=== PATIENT | female | born 1990 | race Hispanic/Latino ===

== ENCOUNTER 2017-07-03 13:13 | Emergency (ER) | payer SELFPAY ==
--- NOTE | 2017-07-03 14:16 | ER ---
Nurse's Notes [facility] Name: Yeison Long Age: 27 yrs Sex: Female : 1990 Arrival Date: 07/03/2017 Time: 13:14 Bed 19 Private MD: Diagnosis: Acute sinusitis Presentation: 07/03 13:20 Presenting complaint: Patient states: Sinus congestion, sinus pressure, and cough x 4 hb days. Transition of care: patient was not received from another setting of care. Onset of symptoms is unknown. Care prior to arrival: Medication(s) given: Claritin and Advil at 1000. 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 - Social history:: Smoking status: Patient uses tobacco products, denies chronic smoking, but will smoke occasionally. Screenin:43 Abuse screen: Denies threats or abuse. Nutritional screening: No deficits noted. tw2 Tuberculosis screening: No symptoms or risk factors identified. Fall Risk None identified. Assessment: 13:57 General: Appears in no apparent distress. General: Appears well groomed, Behavior is tw2 calm, cooperative, appropriate for age. Pain: Complains of pain in "sinuses". Neuro: Level of Consciousness is awake, alert, obeys commands, Oriented to person, place, time, situation. Cardiovascular: Denies chest pain, shortness of breath, Capillary refill < 3 seconds Patient's skin is warm and dry. Respiratory: Airway is patent Respiratory effort is even, unlabored, Respiratory pattern is regular, symmetrical. Respiratory: Reports. GI: No signs and/or symptoms were reported involving the gastrointestinal system. : No signs and/or symptoms were reported regarding the genitourinary system. EENT: Reports nasal congestion nasal discharge. Derm: No signs and/or symptoms reported regarding the dermatologic system. Musculoskeletal: Range of motion: intact in all extremities. 14:32 Reassessment: Patient appears in no apparent distress at this time. No changes from tw2 previously documented assessment. Patient and/or family updated on plan of care and expected duration. Pain level reassessed. Patient is alert, oriented x 3, equal unlabored respirations, skin warm/dry/pink. Vital Signs: 13:22 BP 105 / 72; Pulse 108; Resp 16; Temp 98.6; Pulse Ox 100% on R/A; Weight 65.77 kg; hb Height 5 ft. 2 in. (157.48 cm); Pain 6/10; 13:22 Body Mass Index 26.52 (65.77 kg, 157.48 cm) hb ED Course: 13:14 Patient arrived in ED. as 13:15 Caroline Rendon FNP-C is [facility]. kb 13:15 Matthew Godfrey MD is Attending Physician. kb 13:21 Triage completed. hb 13:22 Arm band placed on left wrist. hb 13:43 Johanny Hutchison, RN is Primary Nurse. tw2 13:43 Bed in low position. Call light in reach. Pulse ox on. NIBP on. tw2 13:51 Strep Sent. tw2 13:59 No provider procedures requiring assistance completed. tw2 14:32 Patient did not have IV access during this emergency room visit. tw2 Administered Medications: No medications were administered Outcome: 14:15 Discharge ordered by . kb 14:30 Patient left the ED. tw2 14:32 Discharged to home ambulatory, with significant other. tw2 14:32 Condition: stable 14:32 Discharge instructions given to patient, significant other, Instructed on discharge instructions, follow up and referral plans. Demonstrated understanding of instructions, follow-up care. Signatures: Caroline Rendon FNP-C FNP-Ckb Martinez, Amelia as Mary De Los Santos RN RN Johanny Hutchison RN RN tw2
--- NOTE | 2017-07-03 14:16 | EDPHYS ---
Physician Documentation [facility] Name: Yeison Long Age: 27 yrs Sex: Female : 1990 Arrival Date: 07/03/2017 Time: 13:14 Bed 19 Private MD: ED Physician Matthew Godfrey HPI: 07/03 14:14 This 27 yrs old Female presents to ER via Ambulatory with complaints of Sinus kb Congestion. 14:14 The patient or guardian reports cough, that is intermittent, described as mild, with no kb sputum. Onset: The symptoms/episode began/occurred 4 day(s) ago. Severity of symptoms: At their worst the symptoms were mild, moderate, in the emergency department the symptoms are unchanged. Modifying factors: The symptoms are alleviated by nothing, the symptoms are aggravated by nothing. Associated signs and symptoms: Pertinent positives: rhinorrhea, Pertinent negatives: chest pain, diarrhea, ear ache, fever, nausea, sore throat, vomiting. The patient has not experienced similar symptoms in the past. The patient has not recently seen a physician. 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 - Social history:: Smoking status: Patient uses tobacco products, denies chronic smoking, but will smoke occasionally. ROS: 14:09 Constitutional: Negative for fever, chills, and weight loss, Cardiovascular: Negative kb for chest pain, palpitations, and edema, Abdomen/GI: Negative for abdominal pain, nausea, vomiting, diarrhea, and constipation, Back: Negative for injury and pain, MS/Extremity: Negative for injury and deformity, Skin: Negative for injury, rash, and discoloration, Neuro: Negative for headache, weakness, numbness, tingling, and seizure. 14:09 ENT: Positive for rhinorrhea, sinus congestion, "ear plugged up". 14:09 Respiratory: Positive for cough, Negative for dyspnea on exertion, hemoptysis, orthopnea, pleurisy, shortness of breath, sputum production, wheezing. Exam: 14:09 Constitutional: This is a well developed, well nourished patient who is awake, alert, kb and in no acute distress. Head/Face: Normocephalic, atraumatic. Neck: Trachea midline, no thyromegaly or masses palpated, and no cervical lymphadenopathy. Supple, full range of motion without nuchal rigidity, or vertebral point tenderness. No Meningismus. Chest/axilla: Normal chest wall appearance and motion. Nontender with no deformity. No lesions are appreciated. Cardiovascular: Regular rate and rhythm with a normal S1 and S2. No gallops, murmurs, or rubs. Normal PMI, no JVD. No pulse deficits. Respiratory: Lungs have equal breath sounds bilaterally, clear to auscultation and percussion. No rales, rhonchi or wheezes noted. No increased work of breathing, no retractions or nasal flaring. Abdomen/GI: Soft, non-tender, with normal bowel sounds. No distension or tympany. No guarding or rebound. No evidence of tenderness throughout. Back: No spinal tenderness. No costovertebral tenderness. Full range of motion. Skin: Warm, dry with normal turgor. Normal color with no rashes, no lesions, and no evidence of cellulitis. MS/ Extremity: Pulses equal, no cyanosis. Neurovascular intact. Full, normal range of motion. Neuro: Awake and alert, GCS 15, oriented to person, place, time, and situation. Cranial nerves II-XII grossly intact. Motor strength 5/5 in all extremities. Sensory grossly intact. Cerebellar exam normal. Normal gait. 14:09 ENT: External ear(s): are unremarkable, Ear canal(s): are normal, TM's: fluid levels, on the left, Examination of the other ear shows no obvious abnormality, Nose: is normal, Mouth: is normal, Posterior pharynx: Airway: normal, no evidence of obstruction, Tonsils: bilaterally enlarged, Uvula: normal, midline, swelling, that is mild, erythema, that is mild, exudate, is not appreciated. Vital Signs: 13:22 BP 105 / 72; Pulse 108; Resp 16; Temp 98.6; Pulse Ox 100% on R/A; Weight 65.77 kg; hb Height 5 ft. 2 in. (157.48 cm); Pain 6/10; 13:22 Body Mass Index 26.52 (65.77 kg, 157.48 cm) [facility]: 13:27 Patient medically screened. kb 14:09 Data reviewed: vital signs, nurses notes. Data interpreted: Pulse oximetry: on room air kb is 100 %. Interpretation: normal. Counseling: I had a detailed discussion with the patient and/or guardian regarding: the historical points, exam findings, and any diagnostic results supporting the discharge/admit diagnosis, the need for outpatient follow up, a family practitioner, to return to the emergency department if symptoms worsen or persist or if there are any questions or concerns that arise at home. 07/03 13:45 Order name: Strep kb 07/03 14:09 Order name: Group A Streptococcus Rapid Sc; Complete Time: 14:09 EDMS Administered Medications: No medications were administered Disposition: 07/03/17 14:15 Discharged to Home. Impression: Acute sinusitis. - Condition is Stable. - Discharge Instructions: Sinusitis, [id number]. - Medication Reconciliation Form, Thank You Letter, Antibiotic Education, Prescription Opioid Use, Work release form form. - Follow up: Emergency Department; When: As needed; Reason: Worsening of condition. Follow up: Private Physician; When: 2 - 3 days; Reason: Recheck today's complaints, Continuance of care, Re-evaluation by your physician. Addendum: 07/05/2017 08:11 Co-signature as Attending Physician, Matthew Godfrey MD I agree with the assessment and c silverio plan of care. Signatures: Dispatcher [employer] Caroline Penn, LACTATION CONSULTANT-C LACTATION CONSULTANT-Matthew Pedroza MD MD cha Baxter, Heather, RN RN Johanny Hutchison RN RN tw2
== END 2017-07-03 14:30 | disposition home or self-care (01) ==
LOC: ER 13:13
DX: J01.90 Acute sinusitis, unspecified (principal); Z72.0 Tobacco use
CPT/HCPCS: 87070; 87081; 99283

== ENCOUNTER 2018-12-30 12:46 | Emergency (ER) | payer SELFPAY ==
--- OUTSIDE RECORDS SUMMARY | 2018-12-30 12:48 | XMS REPORT | Continuity of Care Document ---
:1990 Author Organization [facility] [place] Information [employer] Rating Agency Care Team Providers Name Role Phone [facility] Data Impact Unavailable Unavailable Problems Problem Status Onset Classification Date Comments Source Date Reported Patient Resolved Problem 03/08/2017 [place] [id number] [facility] (finding) SROM Active [address] VAGINAL DEL Active [address] SCREEN FOR Active [address] Medications Medication Details Route Status Patient Ordering Order Source Instructions Provider Date influenza virus 0.5 mL, Route: Inactive [place] vaccine, IM, Drug Form: 2017 Medical inactivated SUSP, Daily, Center Start date: 03/05/17 13:28:00 BENEFIT SPECIALIST, Duration: 1 doses or times, Stop date: 03/05/17 13:28:00 CSTNotes: (Same as: Fluzone Quadrivalent, Fluarix Quadrivalent) For 3 years of age and older (0.5 mL IM) Shake well before use Docusate Sodium 100 mg=1 cap, Active [place] 100 MG Oral PO, Daily, PRN 2017 Medical Capsule Constipation, # Center 20 cap, 0 Refill(s) ibuprofen 600 mg 600 mg=1 tab, Active [place] oral tablet PO, Q6H, PRN 2017 Medical Pain, take with Center food, X 7 day, # 30 tab, 1 Refill(s) influenza virus 0.5 mL, Route: No Longer [place] vaccine, IM, Drug Form: Active 2017 Medical inactivated SUSP, Daily, Center Start date: 03/04/17 9:00:00 BENEFIT SPECIALIST, Duration: 1 doses or times, Stop date: 03/04/17 9:00:00 CSTNotes: (Same as: Fluzone Quadrivalent, Fluarix Quadrivalent) For 3 years of age and older (0.5 mL IM) Shake well before use Ibuprofen 600 mg, 1 tab, No Longer [place] Route: PO, Drug Active 2016 Medical form: TAB, Q6H, Center Dosing Weight 82.727, kg, Start date: 03/03/17 12:00:00 BENEFIT SPECIALIST, Duration: 30 day, Stop date: 04/02/17 6:00:00 CSTNotes: (Same as: Cyndi) "Do Not Crush" Take with food. 0.5 ML Bordetella 0.5 mL, Route: No Longer [place] pertussis IM, Drug Form: Active 2017 Medical filamentous SUSP, Dosing Center hemagglutinin Weight 82.727, vaccine, kg, ONCALL, inactivated 0.01 Start date: MG/ML / Bordetella 03/03/17 pertussis fimbriae 9:00:00 BENEFIT SPECIALIST, 2/3 vaccine, Duration: 1 inactivated 0.01 doses or MG/ML / Bordetella timesNotes: pertussis (Tdap ) For pertactin vaccine, Adolecent and inactivated 0.006 Adult use For MG/ML / Bordetella IM Use. Same pertussis toxoid as: Adacel vacci (Tdap) M-M-R II 0.5 mL, Route: No Longer [place] SUB-Q, Drug Active 2016 Medical Form: PDR/INJ, Center Dosing Weight 82.727, kg, ONCALL, Give only if patient rubella non-immune, Start date: 03/03/17 9:00:00 BENEFIT SPECIALIST, Duration: 1 doses or timesNotes: (Same as: M-M-R II) (measles-mumps- rubella virus vaccine 0.5 ml INJ VL) WASTE: F/P - Red; E -Red GIVE PRIOR TO DISCHARGE 1 tab, Route: No Longer [place] Multivitamins oral PO, Drug Form: Active 2017 Medical tablet TAB, Dosing Center Weight 82.727, kg, Daily, Start date: 03/03/17 9:00:00 BENEFIT SPECIALIST, Duration: 30 day, Stop date: 04/01/17 9:00:00 BENEFIT SPECIALIST Acetaminophen 325 1 tab, Route: No Longer [place] MG / Hydrocodone PO, Drug Form: Active 2017 Medical Bitartrate 10 MG TAB, Dosing Center Oral Tablet Weight 82.727, kg, Q4H, PRN Pain Score 7-10, Start date: 03/03/17 8:48:00 BENEFIT SPECIALIST, Duration: 30 day, Stop date: 04/02/17 8:47:00 CSTNotes: Do not exceed 4gm/day of acetaminophen. (Same as: [place] 325/10) Acetaminophen 325 1 tab, Route: No Longer [place] MG / Hydrocodone PO, Drug Form: Active 2017 Medical Bitartrate 5 MG TAB, Dosing Center Oral Tablet Weight 82.727, kg, Q4H, PRN Pain Score 4-6, Start date: 03/03/17 8:48:00 BENEFIT SPECIALIST, Duration: 30 day, Stop date: 04/02/17 8:47:00 CSTNotes: (Same as: [place] 325/5) Do not exceed 4gm/day of acetaminophen. zolpidem 5 mg, 1 tab, No Longer [place] Route: PO, Drug Active 2016 Medical form: TAB, Center Bedtime, Dosing Weight 82.727, kg, PRN Sleep, Start date: 03/03/17 8:48:00 BENEFIT SPECIALIST, Duration: 30 day, Stop date: 04/02/17 8:47:00 CSTNotes: (Same As: Ambien) Methylergonovine 0.2 mg, 1 mL, No Longer [place] Route: IM, Drug Active 2016 Medical form: INJ, PRN, Center Dosing Weight 82.727, kg, PRN Other -See Comment, Start date: 03/03/17 8:48:00 BENEFIT SPECIALIST, Duration: 30 day, Stop date: 04/02/17 8:47:00 CSTNotes: (Same as:Methergine) lanolin topical 1 appl, Route: No Longer [place] TOP, PRN, Drug Active 2016 Medical form: OINT, PRN Center Other -See Comment, Start date: 03/03/17 8:48:00 BENEFIT SPECIALIST, Duration: 30 day, Stop date: 04/02/17 8:47:00 CSTNotes: (Same as:Lanolin) Benzocaine 200 1 spray, Route: No Longer [place] MG/ML Topical TOP, PRN, Drug Active 2016 Medical [place] [Dermoplast] form: SPRY, PRN Center Irritation, Start date: 03/03/17 8:48:00 BENEFIT SPECIALIST, Duration: 30 day, Stop date: 04/02/17 8:47:00 CSTNotes: (Same As: Dermoplast) WASTE: Aerosol - Return to Pharmacy FOR EXTERNAL USE ONLY Docusate 100 mg, 1 cap, No Longer [place] Route: PO, Drug Active 2016 Medical form: CAP, BID, Center Dosing Weight 82.727, kg, PRN Constipation, Start date: 03/03/17 8:48:00 BENEFIT SPECIALIST, Duration: 30 day, Stop date: 04/02/17 8:47:00 CSTNotes: (Same as: Colace) (Do Not Crush) Bisacodyl 15 mg, 3 tab, No Longer [place] Route: PO, Drug Active 2016 Medical form: ECTAB, Center Daily, Dosing Weight 82.727, kg, PRN Other -See Comment, Start date: 03/03/17 8:48:00 BENEFIT SPECIALIST, Duration: 30 day, Stop date: 04/02/17 8:47:00 CSTNotes: (Same As: Dulcolax, Correctol) (Do Not Crush) "Do Not Crush" Lactated Ringers 1,000 mL, Rate: No Longer [place] IV 1,000 mL 100 ml/hr, Active 2016 Medical Infuse over: 10 Center hr, Route: IV, Dosing Weight 82.727 kg, Total Volume: 1,000, Start date: 03/03/17 8:48:00 BENEFIT SPECIALIST, Duration: 30 day, Stop date: 04/02/17 8:47:00 BENEFIT SPECIALIST, 1.93, m2 Oxytocin 30 unit, 500 No Longer [place] mL, Rate: 42 Active 2016 Medical ml/hr, Infuse Center over: 11.9 hr, Dosing Weight 82.727, kg, Route: IV, Total Volume: 500 mL, Start date: 03/03/17 8:48:00 BENEFIT SPECIALIST, Duration: 2 day, Stop date: 03/05/17 8:47:00 BENEFIT SPECIALIST, Replace Every: 11.9 hr Ondansetron 4 mg, 2 mL, No Longer [place] Route: IVP, Active 2016 Medical Drug form: INJ, Center Q8H, Dosing Weight 82.727, kg, PRN Nausea & Vomiting, Start date: 03/03/17 8:48:00 BENEFIT SPECIALIST, Duration: 30 day, Stop date: 04/02/17 8:47:00 CSTNotes: (Same as: Zofran) MEDICATION WASTE Product Size: 4 mg Product Wasted: ___ mg gentamicin + 320 mg, 8 mL, No Longer [facility] Sodium Chloride Route: IV, Active 2016 Medical 0.9% IV 100 mL Q24H, Dosing Center Weight 82.727, kg, Start date: 03/02/17 20:00:00 BENEFIT SPECIALIST, Duration: 30 day, Stop date: 03/31/17 20:00:00 CSTNotes: TIME CRITICAL MEDICATION (Same as Garamycin) Ofirmev 1,000 mg, 100 Inactive [facility] mL, Route: IV, 2016 Medical Drug form: INJ, Center ONCE, Dosing Weight 82.727, kg, Priority: NOW, Start date: 03/02/17 19:52:00 BENEFIT SPECIALIST, Stop date: 03/02/17 19:52:00 CSTNotes: Infuse over 15 minutes Do not exceed 4gm/day of acetaminophen MEDICATION WASTE Product Size: 1000 mg Product Wasted: ___ mg Gentamicin 320 mg, 8 mL, Inactive [facility] Route: IV, 2016 Medical Q24H, Dosing Center Weight 82.727, kg, Start date: 03/02/17 19:00:00 BENEFIT SPECIALIST, Duration: 30 day, Stop date: 03/31/17 19:00:00 CSTNotes: TIME CRITICAL MEDICATION (Same as Garamycin) Ampicillin 2 gm, Route: No Longer [facility] IVPB, Drug Active 2016 Medical form: PDR/INJ, Center ABXQ6H, Dosing Weight 82.727, kg, Start date: 03/02/17 19:00:00 BENEFIT SPECIALIST, Duration: 30 day, Stop date: 04/01/17 13:00:00 CSTNotes: (Same as: [place]) MEDICATION WASTE Product Size: 2000 mg Product Wasted: ___ mg Ofirmev 1,000 mg, 100 Inactive [facility] mL, Route: IV, 2016 Medical Drug form: INJ, Center ONCE, Dosing Weight 82.727, kg, Priority: NOW, Start date: 03/02/17 18:34:00 BENEFIT SPECIALIST, Stop date: 03/02/17 18:34:00 CSTNotes: Infuse over 15 minutes Do not exceed 4gm/day of acetaminophen MEDICATION WASTE Product Size: 1000 mg Product Wasted: ___ mg Citric Acid / 30 mL, Route: No Longer [place] sodium citrate PO, Drug Form: Active 2017 Medical SOLN, Dosing Center Weight 82.727, kg, ONCALL, Start date: 03/02/17 4:00:00 BENEFIT SPECIALIST, Duration: 30 day, Stop date: 04/01/17 3:59:00 CSTNotes: (Same As: Bicitra, Cytra-2) Sodium citrate-citric acid (500-334 mg/5 mL): 1 mL contains sodium 1 mEq/mL and bicarbonate 1 mEq/mL Carboprost 250 microgram, No Longer [place] 1 mL, Route: Active 2016 Medical IM, Drug form: Center INJ, ONCALL, Dosing Weight 82.727, kg, Start date: 03/02/17 4:00:00 BENEFIT SPECIALIST, Duration: 30 day, Stop date: 04/01/17 3:59:00 CSTNotes: (Same As: Hemabate) Methylergonovine 0.2 mg, 1 mL, No Longer [place] Route: IM, Drug Active 2016 Medical form: INJ, Center ONCALL, Dosing Weight 82.727, kg, Start date: 03/02/17 4:00:00 BENEFIT SPECIALIST, Duration: 30 day, Stop date: 04/01/17 3:59:00 CSTNotes: (Same as:Methergine) Misoprostol 1,000 No Longer [place] microgram, 5 Active 2017 Medical tab, Route: PA, Center Drug form: TAB, ONCALL, Dosing Weight 82.727, kg, Start date: 03/02/17 4:00:00 BENEFIT SPECIALIST, Duration: 1 doses or timesNotes: (Same as:Cytotec) Take with food Famotidine 20 mg, 2 mL, No Longer [place] Route: IVP, Active 2016 Medical Drug form: INJ, Center ONCALL, Dosing Weight 82.727, kg, Start date: 03/02/17 4:00:00 BENEFIT SPECIALIST, Duration: 30 day, Stop date: 04/01/17 3:59:00 CSTNotes: (Same as: Pepcid) Can be dilute in 5-10cc NS IVP: Slow IV push over at least 2 minutes. Terbutaline 0.25 mg, 0.25 No Longer [place] mL, Route: Active 2017 Medical SUB-Q, Drug Center form: INJ, PRN, Dosing Weight 82.727, kg, PRN Other -See Comment, Start date: 03/02/17 3:20:00 BENEFIT SPECIALIST, Duration: 1 doses or times, Stop date: Limited # of timesNotes: DO NOT USE IN RAILROAD CAR CHECKER AREA (Same As: Brethine) Oxytocin 30 unit, 500 No Longer [place] mL, Rate: Active 2016 Medical Titrate, Dosing Center Weight 82.727, kg, Route: IV, Total Volume: 500 mL, Start date: 03/02/17 3:20:00 BENEFIT SPECIALIST, Duration: 2 day, Stop date: 03/04/17 3:19:00 BENEFIT SPECIALIST, Replace Every: 24 hr Lidocaine 2.5 mg, 0.25 No Longer [place] Hydrochloride 10 mL, Route: Active 2017 Medical MG/ML Injectable INTRADERM, Drug Center Solution Form: INJ, Dosing Weight 82.727, kg, PRN, PRN Other -See Comment, Start date: 03/02/17 3:20:00 BENEFIT SPECIALIST, Duration: 30 day, Stop date: 04/01/17 3:19:00 CSTNotes: (Same as: Xylocaine) Lactated Ringers 1,000 mL, Rate: No Longer [place] IV 1,000 mL 125 ml/hr, Active 2016 Medical Infuse over: 8 Center hr, Route: IV, Dosing Weight 82.727 kg, Total Volume: 1,000, Start date: 03/02/17 3:20:00 BENEFIT SPECIALIST, Duration: 30 day, Stop date: 04/01/17 3:19:00 BENEFIT SPECIALIST, 1.93, m2 Calcium Chloride 1,000 mL, 1,000 No Longer [place] 0.0014 MEQ/ML / ml/hr, Infuse Active 2016 Medical Potassium Chloride Over: 1 hr, Center 0.004 MEQ/ML / Route: IV, Sodium Chloride 1,000, Drug 0.103 MEQ/ML / form: INJ, Sodium Lactate ONCE, Dosing 0.028 MEQ/ML Weight 82.727 Injectable kg, Start date: Solution 03/02/17 3:20:00 BENEFIT SPECIALIST, Stop date: 03/02/17 3:20:00 BENEFIT SPECIALIST, Bolus for regional anesthesia per unit protocol Ondansetron 4 mg, 2 mL, No Longer [place] Route: IVP, Active 2016 Medical Drug form: INJ, Center Q8H, Dosing Weight 82.727, kg, PRN Nausea & Vomiting, Start date: 03/02/17 3:20:00 BENEFIT SPECIALIST, Duration: 30 day, Stop date: 04/01/17 3:19:00 CSTNotes: (Same as: Zofran) MEDICATION WASTE Product Size: 4 mg Product Wasted: ___ mg Acetaminophen 325 1 tab, Route: No Longer [place] MG / Hydrocodone PO, Drug Form: Active 2016 Medical Bitartrate 5 MG TAB, Dosing Center Oral Tablet Weight 82.727, kg, Q4H, PRN Pain Score 4-6, Start date: 03/02/17 3:20:00 BENEFIT SPECIALIST, Duration: 30 day, Stop date: 04/01/17 3:19:00 CSTNotes: (Same as: [place] 325/5) Do not exceed 4gm/day of acetaminophen. Butorphanol 1 mg, 0.5 mL, No Longer [place] Route: IVP, Active 2016 Medical Drug form: INJ, Center Q2H, Dosing Weight 82.727, kg, PRN Pain Score 4-6, Start date: 03/02/17 3:20:00 BENEFIT SPECIALIST, Duration: 30 day, Stop date: 04/01/17 3:19:00 CSTNotes: (Same As: Stadol) MEDICATION WASTE Product Size: 2 mg Product Wasted: ___ mg Ibuprofen 600 mg, 1 tab, No Longer [place] Route: PO, Drug Active 2016 Medical form: TAB, Q6H, Center Dosing Weight 82.727, kg, PRN Other -See Comment, Start date: 03/02/17 3:20:00 BENEFIT SPECIALIST, Duration: 30 day, Stop date: 04/01/17 3:19:00 CSTNotes: (Same as: Motrin) "Do Not Crush" Take with food. Allergies, Adverse Reactions, Alerts No Known Medication Allergies Immunizations Immunization Date Given Site Status Last Comments Source Updated influenza virus 03/05/2017 Left completed [facility] vaccine, deltoid l [facility] Results Order Name Results Value Reference Date Interpretation Comments Source Range HEMATOLOGY Eosinophils 0.3 0.0 - 4.0 03/04 [facility] HEMATOLOGY Monocytes 7.1 2.0 - 12.0 03/04 [facility] HEMATOLOGY Basophils 0.2 0.0 - 1.0 03/04 [facility]2016 [facility] HEMATOLOGY Eosinophils # 0.1 0.0 - 0.5 03/04 [facility] HEMATOLOGY Microcyte 1+ None Seen 03/04 [facility] *ABN* [facility] (03/04/17 6:40 AM) [place] HEMATOLOGY Lymphocytes # 2.4 1.0 - 5.5 03/04 [facility] HEMATOLOGY Monocytes # 1.5 0.0 - 0.8 03/04 [facility] HEMATOLOGY Segs-Bands # 16.5 1.5 - 8.1 03/04 [facility] HEMATOLOGY Plt Morph Normal 03/04 [facility] (03/04/17 6:40 AM) [facility] HEMATOLOGY Segs 80.7 45.0 - 03/04 [place] 75.0 [facility] HEMATOLOGY Lymphocytes 11.7 20.0 - 03/04 [place] 40.0 [facility] HEMATOLOGY Platelet 192 133 - 450 03/04 [facility] HEMATOLOGY MPV 8.0 7.4 - 10.4 03/04 [facility] HEMATOLOGY MCH 26.4 27.0 - 03/04 [place] 31.0 [facility] HEMATOLOGY MCHC 33.5 32.0 - 03/04 [place] 36.0 [facility] HEMATOLOGY RDW 14.2 11.5 - 03/04 [place] 14.5 [facility] HEMATOLOGY Hct 32.2 36.0 - 03/04 [place] 48.0 [facility] HEMATOLOGY Hgb 10.8 12.0 - 03/04 [place] 16.0 [facility] HEMATOLOGY MCV 78.9 80.0 - 03/04 [place] 98.0 [facility] HEMATOLOGY RBC 4.09 4.20 - 03/04 [facility] 5.40 [facility] HEMATOLOGY WBC 20.4 3.7 - 10.4 03/04 [facility] [address] [place] [address] URINE AND UA Mucus Few /LPF None Seen 03/02 [facility] STOOL /LPF /2016 [facility] URINE AND UA Bacteria Occasional None Seen 03/02 [facility] /HPF /HPF [facility] URINE AND UA Trans Epi RARE <=0 03/02 [facility] URINE AND UA <=1.0 mg/dL 0.1 - 1.0 03/02 [facility] Urobilinogen [facility] URINE AND UA Amorph Laly Few /HPF None Seen 03/02 [facility] STOOL /HPF [facility] URINE AND UA RBC 28 0 - 2 03/02 [facility] URINE AND UA WBC 7 0 - 5 03/02 [facility] [address] [place] [address] URINE AND UA Sq Epi Many /LPF Few /LPF 03/02 [facility] [address] [place] [address] URINE AND UA Leuk Est Small Negative 03/02 [facility] *ABN* /2016 [facility] (03/02/17 4:56 AM) [place] URINE AND UA Spec Grav 1.009 <=1.030 03/02 [facility] [address] [place] [address] URINE AND UA Turbidity Slight Clear 03/02 [facility] *ABN* /2016 [facility] (03/02/17 4:56 AM) [place] URINE AND UA Color Yellow Yellow 03/02 [facility] *NA* /2016 [facility] (03/02/17 4:56 AM) [place] URINE AND UA Bili Negative Negative 03/02 [facility] *NA* /2016 [facility] (03/02/17 4:56 AM) [place] URINE AND UA Ketones Negative Negative 03/02 [facility] mg/dL mg/dL [facility] URINE AND UA pH 6.5 5.0 - 8.0 03/02 [facility] [address] [place] [address] URINE AND UA Blood Small Negative 03/02 [facility] *ABN* /2016 [facility] (03/02/17 4:56 AM) [place] URINE AND UA Nitrite Negative Negative 03/02 [facility] (03/02/17 4:56 AM) /2016 [facility] URINE AND UA Glucose Negative Negative 03/02 [facility] mg/dL mg/dL [facility] URINE AND UA Protein 30 mg/dL Negative 03/02 [facility] mg/dL [facility] BLOOD BANK Antibody Scrn Negative 03/02 [facility] RESULTS (03/02/17 3:52 AM) [facility] BLOOD BANK ABO/Rh O POS 03/02 [place] RESULTS /2016 [facility] HEMATOLOGY Microcyte 1+ None Seen 03/02 [facility] *ABN* /2016 Medical (03/02/17 3:52 AM) [place] HEMATOLOGY Basophils 0.4 0.0 - 1.0 03/02 [facility] HEMATOLOGY Basophils # 0.1 0.0 - 0.2 03/02 [facility] HEMATOLOGY Monocytes # 0.9 0.0 - 0.8 03/02 [facility] HEMATOLOGY Lymphocytes # 1.9 1.0 - 5.5 03/02 [facility] HEMATOLOGY Segs-Bands # 11.0 1.5 - 8.1 03/02 [facility] HEMATOLOGY Monocytes 6.3 2.0 - 12.0 03/02 [facility] HEMATOLOGY Lymphocytes 13.4 20.0 - 03/02 [place] 40.0 [facility] HEMATOLOGY Segs 79.6 45.0 - 03/02 [place] 75.0 [facility] HEMATOLOGY Eosinophils 0.3 0.0 - 4.0 03/02 [facility] HEMATOLOGY MPV 8.3 7.4 - 10.4 03/02 [facility] HEMATOLOGY Platelet 222 133 - 450 03/02 [facility] HEMATOLOGY RDW 14.1 11.5 - 03/02 [place] 14.5 [facility] HEMATOLOGY MCHC 33.5 32.0 - 03/02 [place] 36.0 [facility] HEMATOLOGY MCH 26.4 27.0 - 03/02 [place] 31.0 [facility] HEMATOLOGY Hct 36.8 36.0 - 03/02 [place] 48.0 [facility] HEMATOLOGY MCV 78.7 80.0 - 03/02 [place] 98.0 [facility] HEMATOLOGY RBC 4.68 4.20 - 03/02 [place] 5.40 [facility] HEMATOLOGY Hgb 12.3 12.0 - 03/02 [place] 16.0 [facility] HEMATOLOGY WBC 13.9 3.7 - 10.4 03/02 [facility] IMMUNOLOGY HIV. Negative Negative 03/02 [place] *NA* /2016 Medical (03/02/17 3:52 AM) [place] IMMUNOLOGY Treponemal Scr Non Reactive Non 03/02 [facility] *NA* Reactive /2016 Medical (03/02/17 3:52 AM) [place] IMMUNOLOGY Hep Bs Ag Negative Negative 03/02 [facility] *NA* /2016 Medical (03/02/17 3:52 AM) [place] Pathology Reports No Data Provided for This Section Diagnostic Reports No Data Provided for This Section Consultation Notes No Data Provided for This Section Discharge Summaries No Data Provided for This Section History and Physicals No Data Provided for This Section Vital Signs Vital Sign Value Date Comments Source Systolic (mm Hg) 102 03/05/2017 [facility] Diastolic (mm Hg) 67 03/05/2017 [facility] Respitory Rate 18 03/05/2017 [facility] Temperature Oral (F) 98.1 F 03/05/2017 [facility] Heart Rate 98 03/05/2017 [facility] Systolic (mm Hg) 123 03/05/2017 [facility] Diastolic (mm Hg) 85 03/05/2017 [facility] Respitory Rate 18 03/05/2017 [facility] Heart Rate 90 03/05/2017 [facility] Temperature Oral (F) 98.1 F 03/05/2017 [facility] Heart Rate 82 03/05/2017 [facility] Temperature Oral (F) 98.0 F 03/05/2017 [facility] Systolic (mm Hg) 106 03/05/2017 [facility] Diastolic (mm Hg) 66 03/05/2017 [facility] Respitory Rate 18 03/05/2017 [facility] Height 157.48 cm 03/02/2017 [facility] BMI Calculated 33.36 03/02/2017 [facility] Weight 82.727 03/02/2017 [facility] BMI Calculated 33.36 03/02/2017 [facility] Height 157.48 cm 03/02/2017 [facility] Weight 82.727 03/02/2017 [facility] Encounters Location Location Encounter Encounter Reason Attending ADM DC Status Source Details Type Number For Provider Date Date Visit [facility] [id number] Terri 10/16 11/15 [employer] [place] /[address] [facility] Inpatient [id number] Terri 03/02 03/05 [facility] Procedures No Data Provided for This Section Assessment and Plan Assessment and Plan Date Source Extracted from:Title: OB PPD#2 Progress Note 03/05/2017 [facility] Author: Barbie Packer MD Date: 03/05/17 Impression and Plan Diagnosis 40 weeks gestation of ([id number] Z3A.40, Working, Medical). Chorioamnionitis ([id number] O41.1290, Working, Medical). Prolonged rupture of membranes ([id number]-KT O42.90, Working, Medical). Second degree perineal laceration (FHO38-HR O70.1, Working, Medical). (spontaneous vaginal delivery) ([id number] O80, Working, Medical). Condition: Stable. Plan - Continue routine care - Encourage breast feed/pump Q2-3 hours - Regular diet, bowel regimen - Discharge to home today, follow up in 2 weeks. Plan of Care No Data Provided for This Section Social History Social History Date Source Social History TypeResponse 03/02/2017 [facility] Smoking Status Former smoker; Type: Cigarettes; Ready to change: No; Concerns about tobacco use in household: Yes; Lives with someone who smokes; Cigarette Smoking Last 365 Days No; Reg Smoking Cessation Counseling No No data available for this 11/15/2016 [facility] Family History No Data Provided for This Section Advance Directives No Data Provided for This Section Functional Status No Data Provided for This Section
--- OUTSIDE RECORDS SUMMARY | 2018-12-30 12:49 | XMS REPORT | Summary of Care ---
:1990 Author Organization [facility] Address [address] [place] [id number]- Encounter HQ Encntr_alias(FIN) [id number] Date(s): 10/16/16 - 11/14/[address] [phone] [phone] Discharge Disposition: Home or Self Care Attending Physician: Terri Chavez MD Referring Physician: Terri Chavez MD Vital Signs No data available for this section Problem List No data available for this section Allergies, Adverse Reactions, Alerts No data available for this section Medications No data available for this section Results No data available for this section Immunizations No data available for this section Procedures No data available for this section Social History No data available for this section Assessment and Plan No data available for this section
--- OUTSIDE RECORDS SUMMARY | 2018-12-30 12:49 | XMS REPORT | Summary of Care ---
:1990 Author Organization [facility] Address [address] [place] [id number]- Encounter HQ Encntr_corinne(FIN) [id number] Date(s): 03/02/17 - 03/05/[address] Professional Services provided by [facility] [place] [address]- Discharge Disposition: Home or Self Care Attending Physician: Terri Chavez MD Admitting Physician: Terri Chavez MD Vital Signs Most recent to oldest 1 2 3 [Reference Range]: Height 157.48 cm 157.48 cm (03/02/17 4:08 AM) (03/02/17 2:32 AM) Temperature Oral [96.4-99.1 98.1 DegF 98.1 DegF 98.0 DegF DegF] (03/05/17 12:30 PM) (03/05/17 8:34 AM) (03/05/17 4:02 AM) Blood Pressure 102/67 mmHg 123/85 mmHg 106/66 mmHg [90-140/60-90 mmHg] (03/05/17 12:30 PM) (03/05/17 8:34 AM) (03/05/17 4:02 AM ) Respiratory Rate [14-20 18 BRMIN 18 BRMIN 18 BRMIN BRMIN] (03/05/17 12:30 PM) (03/05/17 8:34 AM) (03/05/17 4:02 AM) Peripheral Pulse Rate 98 bpm 90 bpm 82 bpm [60-100 bpm] (03/05/17 12:30 PM) (03/05/17 8:34 AM) (03/05/17 4:02 AM) Weight 82.727 kg 82.727 kg (03/02/17 4:08 AM) (03/02/17 2:32 AM) Body Mass Index 33.36 m2 33.36 m2 (03/02/17 4:08 AM) (03/02/17 2:32 AM) Problem List Condition Effective Dates Status Health Status Informant (Confirmed) 03/02/17 - 03/03/17 Resolved Allergies, Adverse Reactions, Alerts Substance Reaction Severity Status NKDA Active Medications acetaminophen-hydrocodone 325 mg-10 mg oral tablet 1 tab, Route: PO, Drug Form: TAB, Dosing Weight 82.727, kg, Q4H, PRN Pain Score 7-10, Start date: 03/03/17 8:48:00 SUPERCHARGE REPAIR SUPERVISOR, Duration: 30 day, Stop date: 04/02/17 8: 47:00 SUPERCHARGE REPAIR SUPERVISOR Notes: Do not exceed 4gm/day of acetaminophen. (Same as: [place] 325/10) Start Date: 03/03/17 Stop Date: 03/05/17 Status: Discontinuedacetaminophen-hydrocodone 325 mg-5 mg oral tablet 1 tab, Route: PO, Drug Form: TAB, Dosing Weight 82.727, kg, Q4H, PRN Pain Score 4-6, Start date: 03/03/17 8:48:00 SUPERCHARGE REPAIR SUPERVISOR, Duration: 30 day, Stop date: 04/02/17 8: 47:00 SUPERCHARGE REPAIR SUPERVISOR Notes: (Same as: [place] 325/5) Do not exceed 4gm/day of acetaminophen. Start Date: 03/03/17 Stop Date: 03/05/17 Status: Discontinuedacetaminophen-hydrocodone 325 mg-5 mg oral tablet 1 tab, Route: PO, Drug Form: TAB, Dosing Weight 82.727, kg, Q4H, PRN Pain Score 4-6, Start date: 03/02/17 3:20:00 SUPERCHARGE REPAIR SUPERVISOR, Duration: 30 day, Stop date: 04/01/17 3: 19:00 SUPERCHARGE REPAIR SUPERVISOR Notes: (Same as: [place] 325/5) Do not exceed 4gm/day of acetaminophen. Start Date: 03/02/17 Stop Date: 03/03/17 Status: Discontinuedacetaminophen-hydrocodone 325 mg-5 mg oral tablet 2 tab, Route: PO, Drug Form: TAB, Dosing Weight 82.727, kg, Q4H, PRN Pain Score 7-10, Start date: 03/02/17 3:20:00 SUPERCHARGE REPAIR SUPERVISOR, Duration: 30 day, Stop date: 04/01/17 3: 19:00 SUPERCHARGE REPAIR SUPERVISOR Notes: (Same as: [place] 325/5) Do not exceed 4gm/day of acetaminophen. Start Date: 03/02/17 Stop Date: 03/05/17 Status: Discontinuedampicillin 2 gm, Route: IVPB, Drug form: PDR/INJ, ABXQ6H, Dosing Weight 82.727, kg, Start date: 03/02/17 19:00:00 SUPERCHARGE REPAIR SUPERVISOR, Duration: 30 day, Stop date: 04/01/17 13:00:00 SUPERCHARGE REPAIR SUPERVISOR Notes: (Same as: Paola) MEDICATION WASTE Product Size: 2000 mgProduct Wasted: ___ mg Start Date: 03/02/17 Stop Date: 03/04/17 Status: Discontinuedbisacodyl 15 mg, 3 tab, Route: PO, Drug form: ECTAB, Daily, Dosing Weight 82.727, kg, PRN Other -See Comment, Start date: 03/03/17 8:48:00 SUPERCHARGE REPAIR SUPERVISOR, Duration: 30 day, Stop date: 04/02/17 8:47:00 SUPERCHARGE REPAIR SUPERVISOR Notes: (Same As: Dulcolax, Correctol) (Do Not Crush) "Do Not Crush" Start Date: 03/03/17 Stop Date: 03/05/17 Status: Discontinuedbisacodyl 10 mg, 1 supp, Route: SD, Drug form: SUPP, PRN, Dosing Weight 82.727, kg, PRN Other -See Comment, Start date: 03/03/17 8:48:00 SUPERCHARGE REPAIR SUPERVISOR, Duration: 30 day, Stop date: 04/02/17 8:47:00 SUPERCHARGE REPAIR SUPERVISOR Notes: (Same As: Dulcolax, Bisco-Lax) Start Date: 03/03/17 Stop Date: 03/05/17 Status: Discontinuedbutorphanol 1 mg, 0.5 mL, Route: IVP, Drug form: INJ, Q2H, Dosing Weight 82.727, kg, PRN Pain Score 4-6, Start date: 03/02/17 3:20:00 SUPERCHARGE REPAIR SUPERVISOR, Duration: 30 day, Stop date: 04/01/17 3:19:00 SUPERCHARGE REPAIR SUPERVISOR Notes: (Same As: Stadol) MEDICATION WASTE Product Size: 2 mgProduct Wasted: ___ mg Start Date: 03/02/17 Stop Date: 03/05/17 Status: Discontinuedbutorphanol 2 mg, 1 mL, Route: IVP, Drug form: INJ, Q2H, Dosing Weight 82.727, kg, PRN Pain Score 7-10, Start date: 03/02/17 3:20:00 SUPERCHARGE REPAIR SUPERVISOR, Duration: 30 day, Stop date: 04/01 3:19:00 SUPERCHARGE REPAIR SUPERVISOR Notes: (Same As: Stadol) MEDICATION WASTE Product Size: 2 mgProduct Wasted: ___ mg Start Date: 03/02/17 Stop Date: 03/05/17 Status: Discontinuedcarboprost 250 microgram, 1 mL, Route: IM, Drug form: INJ, ONCALL, Dosing Weight 82.727, kg , Start date: 03/02/17 4:00:00 SUPERCHARGE REPAIR SUPERVISOR, Duration: 30 day, Stop date: 04/01/17 3:59: 00 SUPERCHARGE REPAIR SUPERVISOR Notes: (Same As: Hemabate) Start Date: 03/02/17 Stop Date: 03/05/17 Status: Discontinuedcitric acid-sodium citrate 30 mL, Route: PO, Drug Form: SOLN, Dosing Weight 82.727, kg, ONCALL, Start date : 03/02/17 4:00:00 SUPERCHARGE REPAIR SUPERVISOR, Duration: 30 day, Stop date: 04/01/17 3:59:00 SUPERCHARGE REPAIR SUPERVISOR Notes: (Same As: Bicitra, Cytra-2) Sodium citrate-citric acid (500-334 mg/5 mL) : 1 mL contains sodium 1 mEq/mL and bicarbonate 1 mEq/mL Start Date: 03/02/17 Stop Date: 03/05/17 Status: DiscontinuedDermoplast 20% topical spray 1 spray, Route: TOP, PRN, Drug form: SPRY, PRN Irritation, Start date: 03/03/17 8:48:00 SUPERCHARGE REPAIR SUPERVISOR, Duration: 30 day, Stop date: 04/02/17 8:47:00 SUPERCHARGE REPAIR SUPERVISOR Notes: (Same As: Dermoplast)WASTE: Aerosol - Return to Pharmacy FOR EXTERNAL USE ONLY Start Date: 03/03/17 Stop Date: 03/05/17 Status: Discontinueddocusate 100 mg, 1 cap, Route: PO, Drug form: CAP, BID, Dosing Weight 82.727, kg, PRN Constipation, Start date: 03/03/17 8:48:00 SUPERCHARGE REPAIR SUPERVISOR, Duration: 30 day, Stop date: 8:47:00 SUPERCHARGE REPAIR SUPERVISOR Notes: (Same as: Colace) (Do Not Crush) Start Date: 03/03/17 Stop Date: 03/05/17 Status: Discontinueddocusate sodium 100 mg oral capsule 100 mg=1 cap, PO, Daily, PRN Constipation, # 20 cap, 0 Refill(s) Start Date: 03/04/17 Status: Orderedfamotidine 20 mg, 2 mL, Route: IVP, Drug form: INJ, ONCALL, Dosing Weight 82.727, kg, Start date: 03/02/17 4:00:00 SUPERCHARGE REPAIR SUPERVISOR, Duration: 30 day, Stop date: 04/01/17 3:59:00 SUPERCHARGE REPAIR SUPERVISOR Notes: (Same as: Pepcid)Can be dilute in 5-10cc NS IVP: Slow IV push over at least 2 minutes. Start Date: 03/02/17 Stop Date: 03/05/17 Status: Discontinuedgentamicin + Sodium Chloride 0.9% IV 100 mL 320 mg, 8 mL, Route: IV, Q24H, Dosing Weight 82.727, kg, Start date: 03/02/17 19 :00:00 SUPERCHARGE REPAIR SUPERVISOR, Duration: 30 day, Stop date: 03/31/17 19:00:00 SUPERCHARGE REPAIR SUPERVISOR Notes: TIME CRITICAL MEDICATION(Same as Garamycin) Start Date: 03/02/17 Stop Date: 03/02/17 Status: Discontinuedgentamicin + Sodium Chloride 0.9% IV 100 mL 320 mg, 8 mL, Route: IV, Q24H, Dosing Weight 82.727, kg, Start date: 03/02/17 20 :00:00 SUPERCHARGE REPAIR SUPERVISOR, Duration: 30 day, Stop date: 03/31/17 20:00:00 SUPERCHARGE REPAIR SUPERVISOR Notes: TIME CRITICAL MEDICATION(Same as Garamycin) Start Date: 03/02/17 Stop Date: 03/04/17 Status: Discontinuedibuprofen 600 mg, 1 tab, Route: PO, Drug form: TAB, Q6H, Dosing Weight 82.727, kg, Start date: 03/03/17 12:00:00 SUPERCHARGE REPAIR SUPERVISOR, Duration: 30 day, Stop date: 04/02/17 6:00:00 SUPERCHARGE REPAIR SUPERVISOR Notes: (Same as: Motrin)"Do Not Crush" Take with food. Start Date: 03/03/17 Stop Date: 03/05/17 Status: Discontinuedibuprofen 600 mg, 1 tab, Route: PO, Drug form: TAB, Q6H, Dosing Weight 82.727, kg, PRN Other -See Comment, Start date: 03/02/17 3:20:00 SUPERCHARGE REPAIR SUPERVISOR, Duration: 30 day, Stop date: 04/01/17 3:19:00 SUPERCHARGE REPAIR SUPERVISOR Notes: (Same as: Motrin)"Do Not Crush" Take with food. Start Date: 03/02/17 Stop Date: 03/05/17 Status: Discontinuedibuprofen 600 mg oral tablet 600 mg=1 tab, PO, Q6H, PRN Pain, take with food, X 7 day, # 30 tab, 1 Refill(s) Start Date: 03/04/17 Stop Date: 03/18/17 Status: Orderedinfluenza virus vaccine, inactivated 0.5 mL, Route: IM, Drug Form: SUSP, Daily, Start date: 03/05/17 13:28:00 SUPERCHARGE REPAIR SUPERVISOR, Duration: 1 doses or times, Stop date: 03/05/17 13:28:00 SUPERCHARGE REPAIR SUPERVISOR Notes: (Same as: Fluzone Quadrivalent, Fluarix Quadrivalent)For 3 years of age and older (0.5 mL IM)Shake well before use Start Date: 03/05/17 Stop Date: 03/05/17 Status: Completedinfluenza virus vaccine, inactivated 0.5 mL, Route: IM, Drug Form: SUSP, Daily, Start date: 03/04/17 9:00:00 SUPERCHARGE REPAIR SUPERVISOR, Duration: 1 doses or times, Stop date: 03/04/17 9:00:00 SUPERCHARGE REPAIR SUPERVISOR Notes: (Same as: Fluzone Quadrivalent, Fluarix Quadrivalent)For 3 years of age and older (0.5 mL IM)Shake well before use Start Date: 03/04/17 Stop Date: 03/05/17 Status: DeletedLactated Ringers (Bolus) IV 1,000 mL, 1,000 ml/hr, Infuse Over: 1 hr, Route: IV, 1,000, Drug form: INJ, ONCE , Dosing Weight 82.727 kg, Start date: 03/02/17 3:20:00 SUPERCHARGE REPAIR SUPERVISOR, Stop date: 3:20:00 SUPERCHARGE REPAIR SUPERVISOR, Bolus for regional anesthesia per unit protocol Start Date: 03/02/17 Stop Date: 03/05/17 Status: DiscontinuedLactated Ringers IV 1,000 mL 1,000 mL, Rate: 100 ml/hr, Infuse over: 10 hr, Route: IV, Dosing Weight 82.727 kg, Total Volume: 1,000, Start date: 03/03/17 8:48:00 SUPERCHARGE REPAIR SUPERVISOR, Duration: 30 day, Stop date: 04/02/17 8:47:00 SUPERCHARGE REPAIR SUPERVISOR, 1.93, m2 Start Date: 03/03/17 Stop Date: 03/05/17 Status: DiscontinuedLactated Ringers IV 1,000 mL 1,000 mL, Rate: 125 ml/hr, Infuse over: 8 hr, Route: IV, Dosing Weight 82.727 kg , Total Volume: 1,000, Start date: 03/02/17 3:20:00 SUPERCHARGE REPAIR SUPERVISOR, Duration: 30 day, Stop date: 04/01/17 3:19:00 SUPERCHARGE REPAIR SUPERVISOR, 1.93, m2 Start Date: 03/02/17 Stop Date: 03/05/17 Status: Discontinuedlanolin topical 1 appl, Route: TOP, PRN, Drug form: OINT, PRN Other -See Comment, Start date: 8:48:00 SUPERCHARGE REPAIR SUPERVISOR, Duration: 30 day, Stop date: 04/02/17 8:47:00 SUPERCHARGE REPAIR SUPERVISOR Notes: (Same as:Lanolin) Start Date: 03/03/17 Stop Date: 03/05/17 Status: Discontinuedlidocaine 1% 200 mg, 20 mL, Route: PERCUT, Drug Form: INJ, Dosing Weight 82.727, kg, PRN, PRN Other -See Comment,Start date: 03/02/17 3:20:00 SUPERCHARGE REPAIR SUPERVISOR, Duration: 1 doses or times, Stop date: Limited # of times Notes: (Same as: Xylocaine) Start Date: 03/02/17 Stop Date: 03/05/17 Status: Discontinuedlidocaine 1% injectable solution 2.5 mg, 0.25 mL, Route: INTRADERM, Drug Form: INJ, Dosing Weight 82.727, kg, PRN , PRN Other -See Comment, Start date: 03/02/17 3:20:00 SUPERCHARGE REPAIR SUPERVISOR, Duration: 30 day, Stop date: 04/01/17 3:19:00 SUPERCHARGE REPAIR SUPERVISOR Notes: (Same as: Xylocaine) Start Date: 03/02/17 Stop Date: 03/05/17 Status: ZxeduyjgmxwvI-N-A II 0.5 mL, Route: SUB-Q, Drug Form: PDR/INJ, Dosing Weight 82.727, kg, ONCALL, Give only if patient rubella non-immune, Start date: 03/03/17 9:00:00 SUPERCHARGE REPAIR SUPERVISOR, Duration: 1 doses or times Notes: (Same as: M-M-R II) (wihicxd-zckir-kaoczra virus vaccine 0.5 ml INJ VL) WASTE: F/P - Red; E -Red GIVE PRIOR TO DISCHARGE Start Date: 03/03/17 Stop Date: 03/05/17 Status: Discontinuedmethylergonovine 0.2 mg, 1 mL, Route: IM, Drug form: INJ, PRN, Dosing Weight 82.727, kg, PRN Other -See Comment, Start date: 03/03/17 8:48:00 SUPERCHARGE REPAIR SUPERVISOR, Duration: 30 day, Stop date: 04/02/17 8:47:00 SUPERCHARGE REPAIR SUPERVISOR Notes: (Same as:Methergine) Start Date: 03/03/17 Stop Date: 03/05/17 Status: Discontinuedmethylergonovine 0.2 mg, 1 mL, Route: IM, Drug form: INJ, ONCALL, Dosing Weight 82.727, kg, Start date: 03/02/17 4:00:00 SUPERCHARGE REPAIR SUPERVISOR, Duration: 30 day, Stop date: 04/01/17 3:59:00 SUPERCHARGE REPAIR SUPERVISOR Notes: (Same as:Methergine) Start Date: 03/02/17 Stop Date: 03/05/17 Status: Discontinuedmisoprostol 1,000 microgram, 5 tab, Route: SD, Drug form: TAB, ONCALL, Dosing Weight 82.727 , kg, Start date: 03/02/17 4:00:00 SUPERCHARGE REPAIR SUPERVISOR, Duration: 1 doses or times Notes: (Same as:Cytotec) Take with food Start Date: 03/02/17 Stop Date: 03/05/17 Status: DiscontinuedOfirmev 1,000 mg, 100 mL, Route: IV, Drug form: INJ, ONCE, Dosing Weight 82.727, kg, Priority: NOW, Start date: 03/02/17 18:34:00 SUPERCHARGE REPAIR SUPERVISOR, Stop date: 03/02/17 18:34:00 SUPERCHARGE REPAIR SUPERVISOR Notes: Infuse over 15 minutesDo not exceed 4gm/day of acetaminophen MEDICATION WASTE ProductSize: 1000 mgProduct Wasted: ___ mg Start Date: 03/02/17 Stop Date: 03/02/17 Status: DeletedOfirmev 1,000 mg, 100 mL, Route: IV, Drug form: INJ, ONCE, Dosing Weight 82.727, kg, Priority: NOW, Start date: 03/02/17 19:52:00 SUPERCHARGE REPAIR SUPERVISOR, Stop date: 03/02/17 19:52:00 SUPERCHARGE REPAIR SUPERVISOR Notes: Infuse over 15 minutesDo not exceed 4gm/day of acetaminophen MEDICATION WASTE ProductSize: 1000 mgProduct Wasted: ___ mg Start Date: 03/02/17 Stop Date: 03/02/17 Status: Completedondansetron 4 mg, 2 mL, Route: IVP, Drug form: INJ, Q8H, Dosing Weight 82.727, kg, PRN Nausea & Vomiting, Start date: 03/03/17 8:48:00 SUPERCHARGE REPAIR SUPERVISOR, Duration: 30 day, Stop date: 04/02/17 8:47:00 SUPERCHARGE REPAIR SUPERVISOR Notes: (Same as: Zofran) MEDICATION WASTE Product Size: 4 mgProduct Wasted: ___ mg Start Date: 03/03/17 Stop Date: 03/05/17 Status: Discontinuedondansetron 4 mg, 2 mL, Route: IVP, Drug form: INJ, Q8H, Dosing Weight 82.727, kg, PRN Nausea & Vomiting, Start date: 03/02/17 3:20:00 SUPERCHARGE REPAIR SUPERVISOR, Duration: 30 day, Stop date: 04/01/17 3:19:00 SUPERCHARGE REPAIR SUPERVISOR Notes: (Same as: Zofran) MEDICATION WASTE Product Size: 4 mgProduct Wasted: ___ mg Start Date: 03/02/17 Stop Date: 03/03/17 Status: Discontinuedoxytocin 30 units in NS 500ml (Titrate) IV 30 unit 30 unit, 500 mL, Rate: 42 ml/hr, Infuse over: 11.9 hr, Dosing Weight 82.727, kg , Route: IV, Total Volume: 500 mL, Start date: 03/03/17 8:48:00 SUPERCHARGE REPAIR SUPERVISOR, Duration: 2 day, Stop date: 03/05/17 8:47:00 SUPERCHARGE REPAIR SUPERVISOR, Replace Every: 11.9 hr Start Date: 03/03/17 Stop Date: 03/05/17 Status: Completedoxytocin 30 units in NS 500ml (Titrate) IV 30 unit 30 unit, 500 mL, Rate: Titrate, Dosing Weight 82.727, kg, Route: IV, Total Volume: 500 mL, Start date: 03/02/17 3:20:00 SUPERCHARGE REPAIR SUPERVISOR, Duration: 2 day, Stop date: 3:19:00 SUPERCHARGE REPAIR SUPERVISOR, Replace Every: 24 hr Start Date: 03/02/17 Stop Date: 03/04/17 Status: Completedoxytocin 30 units in NS 500ml (Titrate) IV 30 unit 30 unit, 500 mL, Rate: 42 ml/hr, Infuse over: 11.9 hr, Dosing Weight 82.727, kg , Route: IV, Total Volume: 500 mL, Start date: 03/02/17 3:20:00 SUPERCHARGE REPAIR SUPERVISOR, Duration: 2 day, Stop date: 03/04/17 3:19:00 SUPERCHARGE REPAIR SUPERVISOR, Replace Every: 11.9 hr Start Date: 03/02/17 Stop Date: 03/03/17 Status: DiscontinuedPrenatal Multivitamins oral tablet 1 tab, Route: PO, Drug Form: TAB, Dosing Weight 82.727, kg, Daily, Start date: 03/03/17 9:00:00 SUPERCHARGE REPAIR SUPERVISOR,Duration: 30 day, Stop date: 04/01/17 9:00:00 SUPERCHARGE REPAIR SUPERVISOR Start Date: 03/03/17 Stop Date: 03/05/17 Status: Discontinuedterbutaline 0.25 mg, 0.25 mL, Route: SUB-Q, Drug form: INJ, PRN, Dosing Weight 82.727, kg, PRN Other -See Comment, Start date: 03/02/17 3:20:00 SUPERCHARGE REPAIR SUPERVISOR, Duration: 1 doses or times, Stop date: Limited # of times Notes: DO NOT USE IN GLASS LINED TANK REPAIRER AREA(Same As: Yarelis) Start Date: 03/02/17 Stop Date: 03/05/17 Status: Discontinuedtetanus/diphth/pertussis (Tdap) adult/adol 5 units-2 units- 15.5 mcg/0.5 mL intramuscular suspension 0.5 mL, Route: IM, Drug Form: SUSP, Dosing Weight 82.727, kg, ONCALL, Start date : 03/03/17 9:00:00 SUPERCHARGE REPAIR SUPERVISOR, Duration: 1 doses or times Notes: (Tdap ) For Adolecent and Adult use For IM Use. Same as: Adacel (Tdap) Start Date: 03/03/17 Stop Date: 03/05/17 Status: Discontinuedzolpidem 5 mg, 1 tab, Route: PO, Drug form: TAB, Bedtime, Dosing Weight 82.727, kg, PRN Sleep, Start date: 03/03/17 8:48:00 SUPERCHARGE REPAIR SUPERVISOR, Duration: 30 day, Stop date: 04/02/17 8 :47:00 SUPERCHARGE REPAIR SUPERVISOR Notes: (Same As: Star) Start Date: 03/03/17 Stop Date: 03/05/17 Status: Discontinued Results BLOOD BANK RESULTS Most recent to oldest [Reference Range]: 1 2 ABO/Rh O POS *Unknown* (03/02/17 3:52 AM) Antibody Scrn Negative (03/02/17 3:52 AM) URINE AND STOOL Most recent to oldest [Reference Range]: 1 2 UA Turbidity [Clear] Slight *ABN* (03/02/17 4:56 AM) UA Color [Yellow] Yellow *NA* (03/02/17 4:56 AM) UA pH [5.0-8.0] 6.5 (03/02/17 4:56 AM) UA Spec Grav [<=1.030] 1.009 (03/02/17 4:56 AM) UA Glucose [Negative mg/dL] Negative mg/dL *NA* (03/02/17 4:56 AM) UA Blood [Negative] Small *ABN* (03/02/17 4:56 AM) UA Ketones [Negative mg/dL] Negative mg/dL *NA* (03/02/17 4:56 AM) UA Protein [Negative mg/dL] 30 mg/dL *ABN* (03/02/17 4:56 AM) UA Urobilinogen [0.1-1.0 mg/dL] <=1.0 mg/dL *NA* (03/02/17 4:56 AM) UA Bili [Negative] Negative *NA* (03/02/17 4:56 AM) UA Leuk Est [Negative] Small *ABN* (03/02/17 4:56 AM) UA Nitrite [Negative] Negative (03/02/17 4:56 AM) UA WBC [0-5 /HPF] 7 /HPF *HI* (03/02/17 4:56 AM) UA RBC [0-2 /HPF] 28 /HPF *HI* (03/02/17 4:56 AM) UA Bacteria [None Seen /HPF] Occasional /HPF *NA* (03/02/17 4:56 AM) UA Sq Epi [Few /LPF] Many /LPF *ABN* (03/02/17 4:56 AM) UA Amorph Laly [None Seen /HPF] Few /HPF *NA* (03/02/17 4:56 AM) UA Mucus [None Seen /LPF] Few /LPF *NA* (03/02/17 4:56 AM) UA Trans Epi [<=0] RARE *NA* (03/02/17 4:56 AM) IMMUNOLOGY Most recent to oldest [Reference Range]: 1 2 Treponemal Scr [Non Reactive] Non Reactive *NA* (03/02/17 3:52 AM) HIV. [Negative] Negative *NA* (03/02/17 3:52 AM) Hep Bs Ag [Negative] Negative *NA* (03/02/17 3:52 AM) HEMATOLOGY Most recent to oldest [Reference Range]: 1 2 WBC [3.7-10.4 K/CMM] 20.4 K/CMM 13.9 K/CMM *HI* *HI* (03/04/17 6:40 AM) (03/02/17 3:52 AM) RBC [4.20-5.40 M/CMM] 4.09 M/CMM 4.68 M/CMM *LOW* (03/02/17 3:52 AM) (03/04/17 6:40 AM) Hgb [12.0-16.0 g/dL] 10.8 g/dL 12.3 g/dL *LOW* (03/02/17 3:52 AM) (03/04/17 6:40 AM) Hct [36.0-48.0 %] 32.2 % 36.8 % *LOW* (03/02/17 3:52 AM) (03/04/17 6:40 AM) MCV [80.0-98.0 fL] 78.9 fL 78.7 fL *LOW* *LOW* (03/04/17 6:40 AM) (03/02/17 3:52 AM) MCH [27.0-31.0 pg] 26.4 pg 26.4 pg *LOW* *LOW* (03/04/17 6:40 AM) (03/02/17 3:52 AM) MCHC [32.0-36.0 g/dL] 33.5 g/dL 33.5 g/dL (03/04/17 6:40 AM) (03/02/17 3:52 AM) RDW [11.5-14.5 %] 14.2 % 14.1 % (03/04/17 6:40 AM) (03/02/17 3:52 AM) Platelet [133-450 K/CMM] 192 K/CMM 222 K/CMM (03/04/17 6:40 AM) (03/02/17 3:52 AM) MPV [7.4-10.4 fL] 8.0 fL 8.3 fL (03/04/17 6:40 AM) (03/02/17 3:52 AM) Segs [45.0-75.0 %] 80.7 % 79.6 % *HI* *HI* (03/04/17 6:40 AM) (03/02/17 3:52 AM) Lymphocytes [20.0-40.0 %] 11.7 % 13.4 % *LOW* *LOW* (03/04/17 6:40 AM) (03/02/17 3:52 AM) Monocytes [2.0-12.0 %] 7.1 % 6.3 % (03/04/17 6:40 AM) (03/02/17 3:52 AM) Eosinophils [0.0-4.0 %] 0.3 % 0.3 % (03/04/17 6:40 AM) (03/02/17 3:52 AM) Basophils [0.0-1.0 %] 0.2 % 0.4 % (03/04/17 6:40 AM) (03/02/17 3:52 AM) Segs-Bands # [1.5-8.1 K/CMM] 16.5 K/CMM 11.0 K/CMM *HI* *HI* (03/04/17 6:40 AM) (03/02/17 3:52 AM) Lymphocytes # [1.0-5.5 K/CMM] 2.4 K/CMM 1.9 K/CMM (03/04/17 6:40 AM) (03/02/17 3:52 AM) Monocytes # [0.0-0.8 K/CMM] 1.5 K/CMM 0.9 K/CMM *HI* *HI* (03/04/17 6:40 AM) (03/02/17 3:52 AM) Eosinophils # [0.0-0.5 K/CMM] 0.1 K/CMM (03/04/17 6:40 AM) Basophils # [0.0-0.2 K/CMM] 0.1 K/CMM (03/02/17 3:52 AM) Microcyte [None Seen] 1+ 1+ *ABN* *ABN* (03/04/17 6:40 AM) (03/02/17 3:52 AM) Plt Morph Normal (03/04/17 6:40 AM) Immunizations Given and Recorded Vaccine Date Status Refusal Reason influenza virus vaccine, inactivated 03/05/17 Given Procedures No data available for this section Social History Social History Type Response Smoking Status Former smoker; Type: Cigarettes; Ready to change: No; Concerns about tobacco use in household: Yes; Lives with someone who smokes; Cigarette Smoking Last 365 Days No; Reg Smoking Cessation Counseling No Assessment and Plan Extracted from: Title: OB PPD#2 Progress Note Author: Barbie Packer MD Date: 03/05/17 Impression and Plan Diagnosis 40 weeks gestation of ([id number] Z3A.40, Working, Medical). Chorioamnionitis (SDZ22-FW O41.1290, Working, Medical). Prolonged rupture of membranes (UYV84-ZS O42.90, Working, Medical). Second degree perineal laceration (GLX09-UM O70.1, Working, Medical). (spontaneous vaginal delivery) (NWC81-ZN O80, Working, Medical). Condition: Stable. Plan - Continue routine care - Encourage breast feed/pump Q2-3 hours - Regular diet, bowel regimen - Discharge to home today, follow up in 2 weeks.
--- NOTE | 2018-12-30 13:47 | ER ---
Nurse's Notes [facility] Name: Yeison Long Age: 28 yrs Sex: Female : 1990 Arrival Date: 12/30/2018 Time: 12:48 Bed Waiting Private MD: Diagnosis: Presentation: 12/30 13:14 Presenting complaint: Patient states: Urinary frequency, weakness, chills, and pelvic aj1 pressure for the past 3 days. Reports that she had an IUD placed one month ago. Denies vaginal discharge. Denies fever. Transition of care: patient was not received from another setting of care. Onset of symptoms was December 2018. Risk Assessment: Do you want to hurt yourself or someone else? Patient reports no desire to harm self or others. Initial Sepsis Screen: Does the patient meet any 2 criteria? HR > 90 bpm. No. Patient's initial sepsis screen is negative. Does the patient have a suspected source of infection? Yes: Dysuria/Frequency/Urgency/UTI. Care prior to arrival: None. 13:14 Method Of Arrival: Ambulatory aj1 13:14 Acuity: GABRIELA 3 aj1 Triage Assessment: 13:16 General: Appears in no apparent distress. comfortable, Behavior is calm, cooperative, aj1 appropriate for age. Pain: Denies pain. Neuro: Level of Consciousness is awake, alert, obeys commands, Oriented to person, place, time, situation. Cardiovascular: Patient's skin is warm and dry. Respiratory: Airway is patent Respiratory effort is even, unlabored, Respiratory pattern is regular, symmetrical. LENS EDGER: 13:16 LMP N/A - control method aj1 Historical: - Allergies: 13:16 No Known Allergies; aj1 - Home Meds: 13:16 Azo-Standard Oral [Active]; aj1 - PMHx: 13:16 None; aj1 - PSHx: 13:16 None; aj1 - Immunization history:: Flu vaccine is up to date. - Social history:: Smoking status: Patient uses tobacco products, denies chronic smoking, but will smoke occasionally. - Ebola Screening: : Patient denies travel to an Ebola-affected area in the 21 days before illness onset. Vital Signs: 13:16 BP 108 / 79; Pulse 91; Resp 18; Temp 98.5; Pulse Ox 97% on R/A; Weight 63.5 kg (R); aj1 Height 5 ft. 3 in. (160.02 cm) (R); Pain 0/10; 13:16 Body Mass Index 24.80 (63.50 kg, 160.02 cm) aj1 ED Course: 12:48 Patient arrived in ED. as 13:15 Triage completed. aj1 13:16 Arm band placed on Patient placed in waiting room, Patient notified of wait time. aj1 Administered Medications: No medications were administered Outcome: 13:39 Eloped from waiting room, before seeing physician Patient notified Registration staff aj1 that she was leaving because the wait time is too long 13:40 Patient left the ED. aj1 Signatures: Marielos Leiva, RN RN aj1 Laurie Pappas as
[2018-12-30 14:09] VITALS: BP 108/79; TEMP 98.5; O2SAT 97
== END 2018-12-30 13:40 | disposition left against medical advice (07) ==
LOC: ER 12:46
DX: Z53.21 Procedure and treatment not carried out due to patient leaving prior to being seen by health care provider (principal)
CPT/HCPCS: 99281

== ENCOUNTER 2020-02-18 14:30 | Emergency (ER) | payer OTHER ==
--- OUTSIDE RECORDS SUMMARY | 2020-02-18 14:32 | XMS REPORT | Continuity of Care Document ---
:1990 Author Organization [facility] [employer] [employer] [place] Care Team Providers Name Role Phone [facility] Zokem Unavailable Un available Problems Problem Status Onset Classification Date Comments Sourc e Date Reported Patient Resolved Problem 03/08/2017 [facility] (finding) SROM Active [address] VAGINAL DEL Active [address] SCREEN FOR Active [address] Medications Medication Details Route Status Patient Ordering Order Source Instructions Provider Date influenza virus Notes: (Same Inactive [place] vaccine, as: Fluzone 2017 Medical inactivated Quadrivalent, Center Fluarix Quadrivalent) For 3 years of age and older (0.5 mL IM) Shake well before use Docusate Sodium 100 mg = 1 cap, Active [place] 100 MG Oral PO, Daily, PRN 2017 Medic al Capsule Constipation, # Center 20 cap, 0 Refill(s) ibuprofen 600 mg 600 mg = 1 tab, Active [facility] oral tablet PO, Q6H, PRN 2017 Medical Pain, take with Center food, X 7 day, # 30 tab, 1 Refill(s) influenza virus Notes: (Same No Longer [facility] vaccine, as: Fluzone Active 2017 Medical inactivated Quadrivalent, Center Fluarix Quadrivalent) For 3 years of age and older (0.5 mL IM) Shake well before use Ibuprofen Notes: (Same [place] Long[place] as: Motrin) "Do Active 2017 Medical Not Crush" Center Take with food. 0.5 ML Bordetella Notes: (Tdap ) No Longer 03/03 [place] pertussis For Adolecent Active 2016 Medical filamentous and Adult use Center hemagglutinin For IM Use. vaccine, Same as: Adacel inactivated 0.01 (Tdap) MG/ML / Bordetella pertussis fimbriae 2/3 vaccine, inactivated 0.01 MG/ML / Bordetella pertussis pertactin vaccine, inactivated 0.006 MG/ML / Bordetella pertussis toxoid vacci M-M-R II Notes: (Same No Longer [place] as: M-M-R II) Active 2017 Medical (measles-mumps- Center rubella virus vaccine 0.5 ml INJ VL) WASTE: F/P - Red; E -Red GIVE PRIOR TO DISCHARGE 1 tab, Route: No Longer s Multivitamins oral PO, Drug Form: Active 2017 Medical tablet TAB, Dosing Center Weight 82.727, kg, Daily, Start date: 03/03/17 9:00:00 PEDORTHIST, Duration: 30 day, Stop date: 04/01/17 9:00:00 PEDORTHIST Acetaminophen 325 Notes: Do not No Longer [place] MG / Hydrocodone exceed 4gm/day Active 2017 Medical Bitartrate 10 MG of Center Oral Tablet acetaminophen. (Same as: [place] 325/10) Acetaminophen 325 Notes: (Same No Longer [place] MG / Hydrocodone as: [place] Active 2017 Medic al Bitartrate 5 MG 325/5) Do not C enter Oral Tablet exceed 4gm/day of acetaminophen. zolpidem Notes: (Same No Longer [place] As: Ambien) Active 2017 [facility] Center Methylergonovine Notes: (Same No Longer [place] as:Methergine) Active 2017 [facility] lanolin topical Notes: (Same No Longer H [place] as:Lanolin) Active 2017 [facility] Benzocaine 200 Notes: (Same No Longer [place] MG/ML Topical As: Dermoplast) Active 2017 Hi dical [place] [Dermoplast] WASTE: Aerosol Center - Return to Pharmacy FOR EXTERNAL USE ONLY Docusate Notes: (Same No Longer [place] as: Colace) (Do Active 2016 Medical Not Crush) Center Bisacodyl Notes: (Same No Longer s As: Dulcolax, Active 2017 Medical Correctol) (Do Center Not Crush) "Do Not Crush" Lactated Ringers 1,000 mL, Rate: No Longer 03/03 [place] IV 1,000 mL 100 ml/hr, Active 2016 Medical Infuse over: 10 Center hr, Route: IV, Dosing Weight 82.727 kg, Total Volume: 1,000, Start date: 03/03/17 8:48:00 PEDORTHIST, Duration: 30 day, Stop date: 04/02/17 8:47:00 PEDORTHIST, 1.93, m2 Oxytocin 30 unit, 500 No Longer [place] mL, Rate: 42 Active 2017 Medical ml/hr, Infuse Center over: 11.9 hr, Dosing Weight 82.727, kg, Route: IV, Total Volume: 500 mL, Start date: 03/03/17 8:48:00 PEDORTHIST, Duration: 2 day, Stop date: 03/05/17 8:47:00 PEDORTHIST, Replace Every: 11.9 hr Ondansetron Notes: (Same No Longer [place] as: Zofran) Active 2017 Medical MEDICATION Center WASTE Product Size: 4 mg Product Wasted: ___ mg gentamicin + Notes: TIME No Longer [facility] Sodium Chloride CRITICAL Active 2017 Medical 0.9% IV 100 mL MEDICATION Center (Same as Garamycin) Ofirmev Notes: Infuse Inactive [place] over 15 minutes 2017 Medical Do not exceed Center 4gm/day of acetaminophen MEDICATION WASTE Product Size: 1000 mg Product Wasted: ___ mg Gentamicin Notes: TIME Inactive [place] CRITICAL 2017 Medical MEDICATION Center (Same as Garamycin) Ampicillin Notes: (Same No Longer [place] as: Principen) Active 2017 Medical MEDICATION Center WASTE Product Size: 2000 mg Product Wasted: ___ mg Ofirmev Notes: Infuse Inactive [place] over 15 minutes 2017 Medical Do not exceed Center 4gm/day of acetaminophen MEDICATION WASTE Product Size: 1000 mg Product Wasted: ___ mg Citric Acid / Notes: (Same No Longer [place] sodium citrate As: Bicitra, Active 2017 [facility] Cytra-2) Sodium Center citrate-citric acid (500-334 mg/5 mL): 1 mL contains sodium 1 mEq/mL and bicarbonate 1 mEq/mL Carboprost Notes: (Same No Longer [place] As: Hemabate) Active 2017 Medical Center Methylergonovine Notes: (Same No Longer [place] as:Methergine) Active 2017 Medical Center Misoprostol Notes: ([place]:Cytotec) Active 2016 Medical Take with food Center Famotidine Notes: (Same No Longer [place] as: Pepcid) Can Active 2016 Medical be dilute in Center 5-10cc NS IVP: Slow IV push over at least 2 minutes. Terbutaline Notes: DO NOT No Longer [place] USE IN CONDUCTOR ORCHESTRA Active 2017 Medical AREA (Same Center As: Brethine) Oxytocin 30 unit, 500 No Longer [place] mL, Rate: Active 2016 Medical Titrate, Dosing Center Weight 82.727, kg, Route: IV, Total Volume: 500 mL, Start date: 03/02/17 3:20:00 PEDORTHIST, Duration: 2 day, Stop date: 03/04/17 3:19:00 PEDORTHIST, Replace Every: 24 hr Lidocaine Notes: (Same [place] Longer [place] Hydrochloride 10 as: Xylocaine) Active 2016 Medical MG/ML Injectable Center Solution Lactated Ringers 1,000 mL, Rate: No Longer 03/02 [place] IV 1,000 mL 125 ml/hr, Active 2016 Medical Infuse over: 8 Center hr, Route: IV, Dosing Weight 82.727 kg, Total Volume: 1,000, Start date: 03/02/17 3:20:00 PEDORTHIST, Duration: 30 day, Stop date: 04/01/17 3:19:00 PEDORTHIST, 1.93, m2 Calcium Chloride 1,000 mL, 1,000 No Longer 03/02 [place] 0.0014 MEQ/ML / ml/hr, Infuse Active 2016 Hi dical Potassium Chloride Over: 1 hr, C enter 0.004 MEQ/ML / Route: IV, Sodium Chloride 1,000, Drug 0.103 MEQ/ML / form: INJ, Sodium Lactate ONCE, Dosing 0.028 MEQ/ML Weight 82.727 Injectable kg, Start date: Solution 03/02/17 3:20:00 PEDORTHIST, Stop date: 03/02/17 3:20:00 PEDORTHIST, Bolus for regional anesthesia per unit protocol Ondansetron Notes: ([place]: Zofran) Active 2016 Medical MEDICATION Center WASTE Product Size: 4 mg Product Wasted: ___ mg Acetaminophen 325 Notes: (Same No Longer [place] MG / Hydrocodone as: [place] Active 2016 Medic al Bitartrate 5 MG 325/5) Do not C enter Oral Tablet exceed 4gm/day of acetaminophen. Butorphanol Notes: (Same No Longer [facility] As: Stadol) Active 2016 Medical MEDICATION Center WASTE Product Size: 2 mg Product Wasted: ___ mg Ibuprofen Notes: ([facility] Mot[facility]) "Do Active 2016 Medical Not Crush" Center Take with food. Allergies, Adverse Reactions, Alerts No Known Medication Allergies Immunizations Immunization Date Given Site Status Last Comments Source Updated influenza virus 03/05/2017 Left completed Иван[facility] [place] vaccine, deltoid l [facility] inactivated Center Results Order Name Results Value Reference Date Interpretation Comments Courtney rce Range HEMATOLOGY Eosinophils 0.3 0.0 - 4.0 03/04 [facility] HEMATOLOGY Monocytes 7.1 2.0 - 12.0 03/04 [facility] HEMATOLOGY Basophils 0.2 0.0 - 1.0 03/04 [facility] HEMATOLOGY Eosinophils # 0.1 0.0 - 0.5 03/04 [facility] HEMATOLOGY Microcyte 1+ None Seen 03/04 [facility] *ABN* /2016 Medical (03/04/17 6:40 AM) Cente r HEMATOLOGY Lymphocytes # 2.4 1.0 - 5.5 03/04 [facility] HEMATOLOGY Monocytes # 1.5 0.0 - 0.8 03/04 [facility] HEMATOLOGY Segs-Bands # 16.5 1.5 - 8.1 03/04 [facility] HEMATOLOGY Plt Morph Normal 03/04 [facility] (03/04/17 6:40 AM) /2016 [facility] al Center HEMATOLOGY Segs 80.7 45.0 - 03/04 [place] 75.0 [facility] HEMATOLOGY Lymphocytes 11.7 20.0 - 03/04 [place] 40.0 [facility] HEMATOLOGY Platelet 192 133 - 450 03/04 [facility] HEMATOLOGY MPV 8.0 7.4 - 10.4 03/04 [facility] HEMATOLOGY MCH 26.4 27.0 - 03/04 [place] 31.0 /2016 [facility] HEMATOLOGY MCHC 33.5 32.0 - 03/04 [place] 36.0 [facility] HEMATOLOGY RDW 14.2 11.5 - 03/04 [place] 14.5 [facility] HEMATOLOGY Hct 32.2 36.0 - 03/04 [place] 48.0 [facility] HEMATOLOGY Hgb 10.8 12.0 - 03/04 [place] 16.0 [facility] HEMATOLOGY MCV 78.9 80.0 - 03/04 [place] 98.0 /2016 [facility] HEMATOLOGY RBC 4.09 4.20 - 03/04 [place] 5.40 /2016 [facility] HEMATOLOGY WBC 20.4 3.7 - 10.4 03/04 [facility] [address] [place] [address] URINE AND UA Mucus Few /LPF None Seen 03/02 [facility] STOOL /LPF /[address] [place] [address] URINE AND UA Bacteria Occasional None Seen 03/02 [place] STOOL /HPF /HPF /2016 [facility] URINE AND UA Trans Epi RARE <=0 03/02 [facility] STOOL [address] [place] [address] URINE AND UA <=1.0 mg/dL 0.1 - 1.0 03/02 [facility] Urobilinogen /2016 [facility] URINE AND UA Amorph Laly Few /HPF None Seen 03/02 [place] STOOL /HPF /[address] [place] [address] URINE AND UA RBC 28 0 - 2 03/02 [facility] [address] [place] [address] URINE AND UA WBC 7 0 - 5 03/02 [facility] [address] [place] [address] URINE AND UA Sq Epi Many /LPF Few /LPF 03/02 [facility] [address] [place] [address] URINE AND UA Leuk Est Small Negative 03/02 [facility] STOOL *ABN* /2016 [facility] (03/02/17 4:56 AM) Cente r URINE AND UA Spec Grav 1.009 <=1.030 03/[address] URINE AND UA Turbidity Slight Clear 03/02 [facility] STOOL *ABN* /2016 [facility] (03/02/17 4:56 AM) Cente r URINE AND UA Color Yellow Yellow 03/02 [facility] STOOL *NA* /2016 Medical (03/02/17 4:56 AM) Cente r URINE AND UA Bili Negative Negative 03/02 [facility] [place] STOOL *NA* /2016 Medical (03/02/17 4:56 AM) Cente r URINE AND UA Ketones Negative Negative 03/02 [place] STOOL mg/dL mg/dL /2016 [facility] URINE AND UA pH 6.5 5.0 - 8.0 03/02 [place] STOOL [facility] URINE AND UA Blood Small Negative 03/02 [place] STOOL *ABN* Medical (03/02/17 4:56 AM) Cente r URINE AND UA Nitrite Negative Negative 03/02 [place] STOOL (03/02/17 4:56 AM) /2016 [facility] URINE AND UA Glucose Negative Negative 03/02 [facility] STOOL mg/dL mg/dL [facility] URINE AND UA Protein 30 mg/dL Negative 03/02 [facility] STOOL mg/dL /2016 [facility] BLOOD BANK Antibody Scrn Negative 03/02 [place] RESULTS (03/02/17 3:52 AM) [facility] BLOOD BANK ABO/Rh O POS 03/02 [place] RESULTS [facility] HEMATOLOGY Microcyte 1+ None Seen 03/02 [place] *ABN* Medical (03/02/17 3:52 AM) Cente r HEMATOLOGY Basophils 0.4 0.0 - 1.0 03/02 [facility] HEMATOLOGY Basophils # 0.1 0.0 - 0.2 03/02 a s [facility] HEMATOLOGY Monocytes # 0.9 0.0 - 0.8 03/02 [place] [facility] HEMATOLOGY Lymphocytes # 1.9 1.0 - 5.5 03/02 [place] [facility] HEMATOLOGY Segs-Bands # 11.0 1.5 - 8.1 03/02 [place] /2016 [facility] HEMATOLOGY Monocytes 6.3 2.0 - 12.0 03/02 [facility] HEMATOLOGY Lymphocytes 13.4 20.0 - 03/02 [place] 40.0 [facility] HEMATOLOGY Segs 79.6 45.0 - 03/02 [place] 75.0 [facility] HEMATOLOGY Eosinophils 0.3 0.0 - 4.0 03/02 a s [facility] HEMATOLOGY MPV 8.3 7.4 - 10.4 03/02 [facility] HEMATOLOGY Platelet 222 133 - 450 03/02 [facility] HEMATOLOGY RDW 14.1 11.5 - 11/21 [place] 14.5 /2016 [facility] HEMATOLOGY MCHC 33.5 32.0 - 03/02 [place] 36.0 /2016 [facility] HEMATOLOGY MCH 26.4 27.0 - 03/02 [place] 31.0 /2016 [facility] HEMATOLOGY Hct 36.8 36.0 - 03/02 [place] 48.0 /2016 [facility] HEMATOLOGY MCV 78.7 80.0 - 03/02 [place] 98.0 /2016 [facility] HEMATOLOGY RBC 4.68 4.20 - 03/02 [place] 5.40 /2016 [facility] HEMATOLOGY Hgb 12.3 12.0 - 03/02 [place] 16.0 /2016 [facility] HEMATOLOGY WBC 13.9 3.7 - 10.4 03/02 [facility] IMMUNOLOGY HIV. Negative Negative 03/02 *NA* Medical (03/02/17 3:52 AM) [facility] IMMUNOLOGY Treponemal Scr Non Reactive Non 03/02 [facility] *NA* [facility] (03/02/17 3:52 AM) Leonides sherman IMMUNOLOGY Hep Bs Ag Negative Negative 03/02 *NA* Medical (03/02/17 3:52 AM) Leonides sherman Pathology Reports No Data Provided for This Section Diagnostic Reports No Data Provided for This Section Consultation Notes No Data Provided for This Section Discharge Summaries No Data Provided for This Section History and Physicals No Data Provided for This Section Vital Signs Vital Sign Value Date Comments Source Systolic (mm Hg) 102 03/05/2017 [facility] Diastolic (mm Hg) 67 03/05/2017 [facility] Respitory Rate 18 03/05/2017 [facility] Temperature Oral (F) 98.1 F 03/05/2017 [facility] Heart Rate 98 03/05/2017 [facility] Systolic (mm Hg) 123 03/05/2017 [facility] Diastolic (mm Hg) 85 03/05/2017 [facility] Respitory Rate 18 03/05/2017 [facility] Heart Rate 90 03/05/2017 [facility] Temperature Oral (F) 98.1 F 03/05/2017 [facility] Heart Rate 82 03/05/2017 [facility] Temperature Oral (F) 98.0 F 03/05/2017 [facility] Systolic (mm Hg) 106 03/05/2017 [facility] Diastolic (mm Hg) 66 03/05/2017 [facility] Respitory Rate 18 03/05/2017 [facility] Height 157.48 cm 03/02/2017 [facility] BMI Calculated 33.36 03/02/2017 [facility] Weight 82.727 03/02/2017 [facility] BMI Calculated 33.36 03/02/2017 [facility] Height 157.48 cm 03/02/2017 [facility] Weight 82.727 03/02/2017 [facility] Encounters Location Location Encounter Encounter Reason Attending ADM SC Stat us Source Details Type Number For Provider Date Date Visit [facility] [id number] Terri 10/16 11/15 [facility] Inpatient [id number] [place] 03/02 03/05 [facility] Procedures No Data Provided for This Section Assessment and Plan Assessment and Plan Date Source Extracted from:Title: OB PPD#2 Progress Note 03/05/2017 [facility] Author: Barbie Packer MD Date: 03/05/17 Impression and Plan Diagnosis 40 weeks gestation of (SCT48-VE Z3A.40, Working yara). Chorioamnionitis ([id number]-XC O41.1290, Working, Medical). Prolonged rupture of membranes (YMN35-WB O42.90, Working, Hi dicnv). Second degree perineal laceration (GDP39-IT O70.1, Working, Medical). (spontaneous vaginal delivery) ([id number] O80, Working, daleical). Condition: Stable. Plan - Continue routine care - Encourage breast feed/pump Q2-3 hours - Regular diet, bowel regimen - Discharge to home today, follow up in 2 weeks. Plan of Care No Data Provided for This Section Social History Social History Date Source Social History TypeResponse 03/02/2017 [facility] Smoking Status Former smoker; Type: Cigarettes; Ready t o change: No; Concerns about tobacco use in [...]
--- OUTSIDE RECORDS SUMMARY | 2020-02-18 14:33 | XMS REPORT | Continuity of Care Document ---
:1990 Author Organization [facility] t Address [address] [place] [address] Care Team Providers Name Role Phone Therese Chavez Attending Clinician Therese Chavez Admitting Clinician Problems Condition Condition Condition Status Onset Resolution Last Treating Co mments Source Name Details Category Date Date Treatment Clinician Date SROM Diagnosis Active 2016-042017-03-02 Mem oria 05-02 02:56:00 l SROM 00:00: [place] 00 Active 03/02/2017 [facility] VAGINAL Diagnosis Active 2017-02-24 Me moria DEL -12 09:19:00 l VAGINAL 12:20: [place] DEL 00 Active 12/22/2016 [facility] SCREEN FOR Diagnosis Active 2016-10-16 Memoria ANOMALIES 6-12 13:32:00 l SCREEN 00:00: [place] FOR 00 ANOMALIES Active 09/21/2016 [facility] Allergic Allergic Problem Active [facility] rhinitis, rhinitis, Luke s - unspecifie unspecifie Me moria d d l seasonalit seasonalit Ou tpati y, y, ent unspecifie unspecifie Cl inics d trigger d trigger History of Past Illness Condition Condition Condition Status Onset Resolution Last Treating Co mments Source Name Details Category Date Date Treatment Clinician Date Patient Problem Resolve 2016-042017-03-08 2017-03-08 Memoria currently d 05-02 01:58:02 01:58:02 l Patient 00:00: Marguerite nn (finding) currently 00 (finding) Resolved 03/02/2017 Problem 03/08/2017 [facility] Allergies, Adverse Reactions, Alerts This patient has no known allergies or adverse reactions. Social History Social Habit Start Date Stop Date Quantity Comments Source Social History 2016-11-15 2016-11-15 [facility] 04:59:00 04:59:00 Smoking Status Start Date Stop Date Source Social History 2017-03-02 09:30:41 2017-03-02 09:30:41 [facility] Medications Ordered Filled Start Stop Current Ordering Indication Dosage Frequency Signature Comments Components Source Medication Medication Date Date Medication? Clinician (SIG) Name Name influenza 2016-04 No Notes: Memori a virus -24 (Same as: l vaccine, 19:28: Fluzone Elio n inactivated 00 Quadrivale nt, Fluarix Quadrivale nt) For 3 years of age and older (0.5 mL IM) Shake well before use influenza 2016-04 No Notes: Memori a virus -24 (Same as: l vaccine, 19:28: Fluzone Elio n inactivated 00 Quadrivale nt, Fluarix Quadrivale nt) For 3 years of age and older (0.5 mL IM) Shake well before use Docusate 2016-04 Yes 100 mg = 1 Mem oria Sodium 100 1-23 cap, PO, l MG Oral 16:01: Daily, PRN Herm aniceto Capsule 00 Constipati on, # 20 cap, 0 Refill(s) ibuprofen 2016-04 Yes 600 mg = 1 Me moria 600 mg oral 1-23 tab, PO, l tablet 16:01: Q6H, PRN [place] 00 Pain, take with food, X 7 day, # 30 tab, 1 Refill(s) Docusate 2016-04 Yes 100 mg = 1 Mem oria Sodium 100 1-23 cap, PO, l MG Oral 16:01: Daily, PRN Herm aniceto Capsule 00 Constipati on, # 20 cap, 0 Refill(s) ibuprofen 2016-04 Yes 600 mg = 1 Me moria 600 mg oral 1-23 tab, PO, l tablet 16:01: Q6H, PRN [place] 00 Pain, take with food, X 7 day, # 30 tab, 1 Refill(s) influenza 2016-04 No Notes: Memori a virus - (Same as: l vaccine, 15:00: Fluzone Elio n inactivated 00 Quadrivale nt, Fluarix Quadrivale nt) For 3 years of age and older (0.5 mL IM) Shake well before use influenza 2016-04 No Notes: Memori a virus 05-04 (Same as: l vaccine, 15:00: Fluzone Elio n inactivated 00 Quadrivale nt, Fluarix Quadrivale nt) For 3 years of age and older (0.5 mL IM) Shake well before use Ibuprofen 2016-04 No Notes: Memori a 05-03 (Same as: l 18:00: Motrin) [place] 00 "Do Not Crush" Take with food. Ibuprofen 2016-04 No Notes: Memori a 05-03 (Same as: l 18:00: Motrin) Lc 00 "Do Not Crush" Take with food. 0.5 ML 2016-04 No Notes: Memoria Bordetella 05-03 (Tdap ) l pertussis 15:00: For Lc filamentous 00 Adolecent hemagglutin and Adult in vaccine, use For IM inactivated Use. Same 0.01 MG/ML as: Adacel / (Tdap) Bordetella pertussis fimbriae 2/3 vaccine, inactivated 0.01 MG/ML / Bordetella pertussis pertactin vaccine, inactivated 0.006 MG/ML / Bordetella pertussis toxoid vacci M-M-R II 2016-04 No Notes: Memoria 05-03 (Same as: l 15:00: M-M-R II) [place] 00 (measles-m umps-rubel la virus vaccine 0.5 ml INJ VL) WASTE: F/P - Red; E -Red GIVE PRIOR TO DISCHARGE 2016-04 No 1 tab, Memoria Multivitami 05-03 Route: PO, l ns oral 15:00: Drug Form: Herm aniceto tablet 00 TAB, Dosing Weight 82.727, kg, Daily, Start date: 03/03/17 9:00:00 CONTENT CURATOR, Duration: 30 day, Stop date: 04/01/17 9:00:00 CONTENT CURATOR 0.5 ML 2016-04 No Notes: Memoria Bordetella 05-03 (Tdap ) l pertussis 15:00: For [place] filamentous 00 Adolecent hemagglutin and Adult in vaccine, use For IM inactivated Use. Same 0.01 MG/ML as: Adacel / (Tdap) Bordetella pertussis fimbriae 2/3 vaccine, inactivated 0.01 MG/ML / Bordetella pertussis pertactin vaccine, inactivated 0.006 MG/ML / Bordetella pertussis toxoid vacci M-M-R II 2016-04 No Notes: Memoria 05-03 (Same as: l 15:00: M-M-R II) Lc 00 (measles-m umps-rubel la virus vaccine 0.5 ml INJ VL) WASTE: F/P - Red; E -Red GIVE PRIOR TO DISCHARGE 2016-04 No 1 tab, Memoria Multivitami 05-03 Route: PO, l ns oral 15:00: Drug Form: Herm aniceto tablet 00 TAB, Dosing Weight 82.727, kg, Daily, Start date: 03/03/17 9:00:00 CONTENT CURATOR, Duration: 30 day, Stop date: 04/01/17 9:00:00 CONTENT CURATOR Acetaminoph 2016-04 No Notes: Do M emoria en 325 MG / 05-03 not exceed l Hydrocodone 14:48: 4gm/day of [place] Bitartrate 00 acetaminop 10 MG Oral hen. Tablet (Same as: Odum 325/10) Acetaminoph 2016-04 No Notes: Chencho latasha en 325 MG / 05-03 (Same as: l Hydrocodone 14:48: Odum Marguerite nn Bitartrate 00 325/5) Do 5 MG Oral not exceed Tablet 4gm/day of acetaminop hen. zolpidem 2016-04 No Notes: Memoria 05-03 (Same As: l 14:48: Ambien) [place] 00 Methylergon 2016-04 No Notes: Chencho latasha ovine 05-03 (Same l 14:48: as:Metherg [place] ine) lanolin 2016-04 No Notes: Memoria topical 05-03 (Same l 14:48: as:Lanolin [place] ) Benzocaine 2016-04 No Notes: Memor ia 200 MG/ML 05-03 (Same As: l Topical 14:48: Dermoplast Herm aniceto [place] 00 ) WASTE: [Dermoplast Aerosol - ] Return to Pharmacy FOR EXTERNAL USE ONLY Docusate 2016-04 No Notes: Memoria - (Same as: l 14:48: Colace) [place] 00 (Do Not Crush) Bisacodyl 2016-04 No Notes: Memori a 05-03 (Same As: l 14:48: Dulcolax, Lc 00 Correctol) (Do Not Crush) "Do Not Crush" Lactated 2016-04 No 1,000 mL, Chencho latasha Ringers IV 05-03 Rate: 100 l 1,000 mL 14:48: ml/hr, [place] 00 Infuse over: 10 hr, Route: IV, Dosing Weight 82.727 kg, Total Volume: 1,000, Start date: 03/03/17 8:48:00 CONTENT CURATOR, Duration: 30 day, Stop date: 04/02/17 8:47:00 CONTENT CURATOR, 1.93, m2 Oxytocin 2016-04 No 30 unit, Memor ia 05-03 500 mL, l 14:48: Rate: 42 [place] 00 ml/hr, Infuse over: 11.9 hr, Dosing Weight 82.727, kg, Route: IV, Total Volume: 500 mL, Start date: 03/03/17 8:48:00 CONTENT CURATOR, Duration: 2 day, Stop date: 03/05/17 8:47:00 CONTENT CURATOR, Replace Every: 11.9 hr Ondansetron 2016-04 No Notes: Chencho latasha 05-03 (Same as: l 14:48: Zofran) MEDICATION WASTE Product Size: 4 mg Product Wasted: ___ mg Acetaminoph 2016-04 No Notes: Do M emoria en 325 MG / 05-03 not exceed l Hydrocodone 14:48: 4gm/day of [place] Bitartrate 00 acetaminop 10 MG Oral hen. Tablet (Same as: Odum 325/10) Acetaminoph 2016-04 No Notes: Chencho latasha en 325 MG / 05-03 (Same as: l Hydrocodone 14:48: Odum Marguerite nn Bitartrate 00 325/5) Do 5 MG Oral not exceed Tablet 4gm/day of acetaminop hen. zolpidem 2016-04 No Notes: Memoria 05-03 (Same As: l 14:48: Ambien) [place] 00 Methylergon 2016-04 No Notes: Chencho latasha ovine 05-03 (Same l 14:48: as:Metherg ine) lanolin 2016-04 No Notes: Memoria topical 05-03 (Same l 14:48: as:Lanolin ) Benzocaine 2016-04 No Notes: Memor ia 200 MG/ML 05-03 (Same As: l Topical 14:48: Dermoplast Herm aniceto [place] 00 ) WASTE: [Dermoplast Aerosol - ] Return to Pharmacy FOR EXTERNAL USE ONLY Docusate 2016-04 No Notes: Memoria 05-03 (Same as: l 14:48: Colace) Lc 00 (Do Not Crush) Bisacodyl 2016-04 No Notes: Memori a 05-03 (Same As: l 14:48: Dulcolax, [place] 00 Correctol) (Do Not Crush) "Do Not Crush" Lactated 2016-04 No 1,000 mL, Chencho latasha Ringers IV 05-03 Rate: 100 l 1,000 mL 14:48: ml/hr, Lc 00 Infuse over: 10 hr, Route: IV, Dosing Weight 82.727 kg, Total Volume: 1,000, Start date: 03/03/17 8:48:00 CONTENT CURATOR, Duration: 30 day, Stop date: 04/02/17 8:47:00 CONTENT CURATOR, 1.93, m2 Oxytocin 2016-04 No 30 unit, Memor ia 05-03 500 mL, l 14:48: Rate: 42 [place] 00 ml/hr, Infuse over: 11.9 hr, Dosing Weight 82.727, kg, Route: IV, Total Volume: 500 mL, Start date: 03/03/17 8:48:00 CONTENT CURATOR, Duration: 2 day, Stop date: 03/05/17 8:47:00 CONTENT CURATOR, Replace Every: 11.9 hr Ondansetron 2016-04 No Notes: Chencho latasha 05-03 (Same as: l 14:48: Zofran) [place] 00 MEDICATION WASTE Product Size: 4 mg Product Wasted: ___ mg gentamicin 2016-04 No Notes: Memor ia + Sodium 1-22 TIME l Chloride 02:00: CRITICAL Marguerite nn 0.9% IV 100 00 MEDICATION mL (Same as Garamycin) gentamicin 2016-04 No Notes: Memor ia + Sodium 1-22 TIME l Chloride 02:00: CRITICAL Marguerite nn 0.9% IV 100 00 MEDICATION mL (Same as Garamycin) Ofirmev 2016-04 No Notes: Memoria 05-03 Infuse l 01:52: over 15 Lc 00 minutes Do not exceed 4gm/day of acetaminop hen MEDICATION WASTE Product Size: 1000 mg Product Wasted: ___ mg Ofirmev 2016-04 No Notes: Memoria 05-03 Infuse l 01:52: over 15 Lc 00 minutes Do not exceed 4gm/day of acetaminop hen MEDICATION WASTE Product Size: 1000 mg Product Wasted: ___ mg Gentamicin 2016-04 No Notes: Memor ia 05-03 TIME l 01:00: CRITICAL Lc 00 MEDICATION (Same as Garamycin) Ampicillin 2016-04 No Notes: Memor ia 05-03 (Same as: l 01:00: Principen) [place] 00 MEDICATION WASTE Product Size: 2000 mg Product Wasted: ___ mg Gentamicin 2016-04 No Notes: Memor ia 05-03 TIME l 01:00: CRITICAL [place] 00 MEDICATION (Same as Garamycin) Ampicillin 2016-04 No Notes: Memor ia 05-03 (Same as: l 01:00: Principen) Lc 00 MEDICATION WASTE Product Size: 2000 mg Product Wasted: ___ mg Ofirmev 2016-04 No Notes: Memoria 05-03 Infuse l 00:34: over 15 [place] 00 minutes Do not exceed 4gm/day of acetaminop hen MEDICATION WASTE Product Size: 1000 mg Product Wasted: ___ mg Ofirmev 2016-04 No Notes: Memoria 05-03 Infuse l 00:34: over 15 [place] 00 minutes Do not exceed 4gm/day of acetaminop hen MEDICATION WASTE Product Size: 1000 mg Product Wasted: ___ mg Citric Acid 2016-04 No Notes: Chencho latasha / sodium 05-02 (Same As: l citrate 10:00: Bicitra, Elio n 00 Cytra-2) Sodium citrate-ci tric acid (500-334 mg/5 mL): 1 mL contains sodium 1 mEq/mL and bicarbonat e 1 mEq/mL Carboprost 2016-04 No Notes: Memor ia 05-02 (Same As: l 10:00: Hemabate) [place] Methylergon 2016-04 No Notes: Chencho latasha ovine 05-02 (Same l 10:00: as:Metherg Lc 00 ine) Misoprostol 2016-04 No Notes: Chencho latasha 1-21 (Same l 10:00: as:Cytotec Lc 00 ) Take with food Famotidine 2016-04 No Notes: Memor ia 1-21 (Same as: l 10:00: Pepcid) Cl 00 Can be dilute in 5-10cc NS IVP: Slow IV push over at least 2 minutes. Citric Acid 2016-04 No Notes: Chencho latasha / sodium 1-21 (Same As: l citrate 10:00: Bicitra, Elio n 00 Cytra-2) Sodium citrate-ci tric acid (500-334 mg/5 mL): 1 mL contains sodium 1 mEq/mL and bicarbonat e 1 mEq/mL Carboprost 2016-04 No Notes: Memor ia 1-21 (Same As: l 10:00: Hemabate) Lc 00 Methylergon 2016-04 No Notes: Chencho latasha ovine 1-21 (Same l 10:00: as:Metherg Lc 00 ine) Misoprostol 2016-04 No Notes: Chencho latasha 1-21 (Same l 10:00: as:Cytotec Lc 00 ) Take with food Famotidine 2016-04 No Notes: Memor ia 1-21 (Same as: l 10:00: Pepcid) [place] 00 Can be dilute in 5-10cc NS IVP: Slow IV push over at least 2 minutes. Terbutaline 2016-04 No Notes: Chencho latasha -21 DO NOT l 09:20: USE IN [place] EVS ATTENDANT AREA (Same As: Yarelis) Oxytocin 2016-04 No 30 unit, Memor ia 1-21 500 mL, l 09:20: Rate: [place] 00 Titrate, Dosing Weight 82.727, kg, Route: IV, Total Volume: 500 mL, Start date: 03/02/17 3:20:00 CONTENT CURATOR, Duration: 2 day, Stop date: 03/04/17 3:19:00 CONTENT CURATOR, Replace Every: 24 hr Lidocaine 2016-04 No Notes: Memori a Hydrochlori -21 (Same as: l de 10 MG/ML 09:20: Xylocaine) [place] Injectable 00 Solution Lactated 2016-04 No 1,000 mL, Chencho latasha Ringers IV 05-02 Rate: 125 l 1,000 mL 09:20: ml/hr, Lc 00 Infuse over: 8 hr, Route: IV, Dosing Weight 82.727 kg, Total Volume: 1,000, Start date: 03/02/17 3:20:00 CONTENT CURATOR, Duration: 30 day, Stop date: 04/01/17 3:19:00 CONTENT CURATOR, 1.93, m2 Calcium 2016-04 No 1,000 mL, Memor ia Chloride -21 1,000 l 0.0014 09:20: ml/hr, Lc MEQ/ML / 00 Infuse Potassium Over: 1 Chloride hr, Route: 0.004 IV, 1,000, MEQ/ML / Drug form: Sodium INJ, ONCE, Chloride Dosing 0.103 Weight MEQ/ML / 82.727 kg, Sodium Start Lactate date: 0.028 03/02/17 MEQ/ML 3:20:00 Injectable CONTENT CURATOR, Stop Solution date: 03/02/17 3:20:00 CONTENT CURATOR, Bolus for regional anesthesia per unit protocol Ondansetron 2016-04 No Notes: Chencho latasha - (Same as: l 09:20: Zofran) Lc 00 MEDICATION WASTE Product Size: 4 mg Product Wasted: ___ mg Acetaminoph 2016-04 No Notes: Chencho latasha en 325 MG / 05-02 (Same as: l Hydrocodone 09:20: Odum Marguerite nn Bitartrate 00 325/5) Do 5 MG Oral not exceed Tablet 4gm/day of acetaminop hen. Butorphanol 2016-04 No Notes: Chencho latasha -21 (Same As: l 09:20: Stadol) Lc 00 MEDICATION WASTE Product Size: 2 mg Product Wasted: ___ mg Ibuprofen 2016-04 No Notes: Memori a - (Same as: l 09:20: Motrin) "Do Not Crush" Take with food. Terbutaline 2016-04 No Notes: Chencho latasha - DO NOT l 09:20: USE IN [place] EVS ATTENDANT AREA (Same As: Brethine) Oxytocin 2016-04 No 30 unit, Memor ia -21 500 mL, l 09:20: Rate: [place] 00 Titrate, Dosing Weight 82.727, kg, Route: IV, Total Volume: 500 mL, Start date: 03/02/17 3:20:00 CONTENT CURATOR, Duration: 2 day, Stop date: 03/04/17 3:19:00 CONTENT CURATOR, Replace Every: 24 hr Lidocaine 2016-04 No Notes: Memori a Hydrochlori 05-02 (Same as: l de 10 MG/ML 09:20: Xylocaine) [place] Injectable 00 Solution Lactated 2016-04 No 1,000 mL, Chencho latasha Ringers IV 05-02 Rate: 125 l 1,000 mL 09:20: ml/hr, Lc 00 Infuse over: 8 hr, Route: IV, Dosing Weight 82.727 kg, Total Volume: 1,000, Start date: 03/02/17 3:20:00 CONTENT CURATOR, Duration: 30 day, Stop date: 04/01/17 3:19:00 CONTENT CURATOR, 1.93, m2 Calcium 2016-04 No 1,000 mL, Memor ia Chloride 05-02 1,000 l 0.0014 09:20: ml/hr, [place] MEQ/ML / 00 Infuse Potassium Over: 1 Chloride hr, Route: 0.004 IV, 1,000, MEQ/ML / Drug form: Sodium INJ, ONCE, Chloride Dosing 0.103 Weight MEQ/ML / 82.727 kg, Sodium Start Lactate date: 0.028 03/02/17 MEQ/ML 3:20:00 Injectable CONTENT CURATOR, Stop Solution date: 03/02/17 3:20:00 CONTENT CURATOR, Bolus for regional anesthesia per unit protocol Ondansetron 2016-04 No Notes: Chencho latasha 05-02 (Same as: l 09:20: Zofran) Lc 00 MEDICATION WASTE Product Size: 4 mg Product Wasted: ___ mg Acetaminoph 2016-04 No Notes: Chencho latasha en 325 MG / 05-02 (Same as: l Hydrocodone 09:20: Odum Marguerite nn Bitartrate 00 325/5) Do 5 MG Oral not exceed Tablet 4gm/day of acetaminop hen. Butorphanol 2016-04 No Notes: Chencho latasha 05-02 (Same As: l 09:20: Stadol) Lc 00 MEDICATION WASTE Product Size: 2 mg Product Wasted: ___ mg Ibuprofen 2016-04 No Notes: Memori a (Same as: l 09:20: Motrin) Lc 00 "Do Not Crush" Take with food. Claritin Claritin Yes Nadeem [address] [facility] Vital Signs Vital Name Observation Time Observation Value Comments Source Systolic (mm Hg) 2017-03-05 18:30:00 Chencho rial [place] Diastolic (mm Hg) 2017-03-05 18:30:00 Mem orial Lc Respitory Rate 2017-03-05 18:30:00 Memori al Lc Temperature Oral (F) 2017-03-05 18:30:00 98.1 F [facility] [place] Heart Rate 2017-03-05 18:30:00 [facility] [place] Systolic (mm Hg) 2017-03-05 14:34:00 Chencho rial Lc Diastolic (mm Hg) 2017-03-05 14:34:00 Mem orial Lc Respitory Rate 2017-03-05 14:34:00 Memori al [place] Heart Rate 2017-03-05 14:34:00 [facility] [place] Temperature Oral (F) 2017-03-05 14:34:00 98.1 F [facility] [place] Heart Rate 2017-03-05 10:02:00 [facility] [place] Temperature Oral (F) 2017-03-05 10:02:00 98.0 F [facility] [place] Systolic (mm Hg) 2017-03-05 10:02:00 Chencho rial Lc Diastolic (mm Hg) 2017-03-05 10:02:00 Mem orial [place] Respitory Rate 2017-03-05 10:02:00 Memori al [place] Height 2017-03-02 10:08:00 157.48 cm [facility] BMI Calculated 2017-03-02 10:08:00 Memori al [place] Weight 2017-03-02 10:08:00 [facility] [place] BMI Calculated 2017-03-02 08:32:00 Memori al [place] Height 2017-03-02 08:32:00 157.48 cm [facility] Weight 2017-03-02 08:32:00 [facility] Procedures This patient has no known procedures. Encounters Start End Encounter Admission Attending Care Care Encounter Source Date/Time Date/Time Type Type Clinicians Facility Department ID 2019-06-26 2019-06-26 [facility] [id number] [facility] [address] 08:56:00 08:56:00 t [employer] [facility] [employer] [facility] Medicine Outpat[facility] ent Clinics 2019-06-22 2019-06-22 [facility] [id number] [facility] 09:15:00 09:15:00 t [employer] [facility] [employer] [place] [facility] 2017-03-02 2017-03-05 Outpatient Scott, [facility] [id number] 02:20:00 14:40:00 Terri 00 Gaidousek 2017-03-02 2017-03-05 Outpatient Scott, [facility] [id number] 02:20:00 14:40:00 Terri 00 Gaidousek 2016-10-16 2016-11-14 Outpatient Scott, [facility] [id number] 13:20:00 23:59:00 Terri 00 Gaidousek 2016-10-16 2016-11-[address] [facility] [id number] 13:20:00 23:59:00 Terri 00 Gaidousek Results Test Description Test Time Test Comments Results Result Comments Source HEMATOLOGY 2017-03-04 0.3 [facility] 12:40:00 Lc HEMATOLOGY 2017-03-04 7.1 [facility] 12:40:00 [place] HEMATOLOGY 2017-03-04 0.2 [facility] 12:40:00 Cl HEMATOLOGY 2017-03-04 0.1 [facility] 12:40:00 Lc HEMATOLOGY 2017-03-04 1+ [facility] 12:40:00 *ABN*(03/04/17 [place] 6:40 AM) HEMATOLOGY 2017-03-04 2.4 [facility] 12:40:00 Lc HEMATOLOGY 2017-03-04 1.5 [facility] 12:40:00 [place] HEMATOLOGY 2017-03-04 16.5 [facility] 12:40:00 Lc HEMATOLOGY 2017-03-04 Normal [facility] 12:40:00 (03/04/17 6:40 Lc AM) HEMATOLOGY 2017-03-04 80.7 [facility] 12:40:00 [place] HEMATOLOGY 2017-03-04 11.7 [facility] 12:40:00 Lc HEMATOLOGY 2017-03-04 192 [facility] 12:40:00 [place] HEMATOLOGY 2017-03-04 8.0 [facility] 12:40:00 Lc HEMATOLOGY 2017-03-04 12:40:00 Test Item Value Reference Range Interpretation Comme nts MCH (test code = MCH) 26.4 pg 27.0-31.0 [facility] [id number] 12:40:0033.5[facility] 2017-03-04 12:40:0014.2[facility] UbioxxhVKCVRANMGA8183-61-48 12:40:0032.2[facility] PkfeoebHJNTFJUKKX0831-97-32 12:40:0010.8[facility] AvxohpbJYFHVDZXNF7471-47-19 12:40:0078.9[facility] ZnvjhyxDSTEWPNQTQ7668-77-24 12:40:004.09[facility] [place] FGZBSDPAIW6940-45-51 12:40:0020.4[facility] AnkcofcSHPQFTLSOT9461-17-17 12:40:00 0.3[facility] VeztlejNJDFCKPEAO6655-31-88 12:40:007.1[facility] 2017-03-04 12:40:000.2[facility] SpanjofEQKQHJADBE5966-58-31 12:40:000.1[facility] WcqxjpwPUTKYGCTQW0267-04-23 12:40:001+ *ABN*(03/04/17 6:40 AM)[facility] L[facility] YWORTUUIKR0006-60-13 12:40:002.4[facility] AvshigdYJKGUHSAWB7773-92-41 12:40:001.5 [facility] FiltgblGKLAQHWWIS9006-25-48 12:40:0016.5[facility] 2017-03-04 12:40:00Normal (03/04/17 6:40 AM)[facility] NqlsifjKOLAVRXZIF3438-15-98 12:40:0080.7[facility] AyxzviqEVZLCZATYT2457-85-60 12:40:0011.7[facility] L[facility] BMLGRKOCSQ9987-87-42 12:40:24203Mhuacrrc WxxrtlwCJPUGUGUEI3280-81-47 12:40:008.0 [facility] AltcssnXCNDLLDEIG0887-95-58 12:40:00 Test Item Value Reference Range Interpretation Comments MCH (test code = MCH) 26.4 pg 27.0-31.0 [facility] VcotamsQBFXNBOCYU0596-56-37 12:40:0033.5[facility] 2017-03-04 12:40:0014.2[facility] VvzogvmVRHUINNQNM0071-18-80 12:40:0032.2[facility] IevgvndHZFOXVPYGX5473-85-58 12:40:0010.8[facility] KyntageYXGDPZRUJA1674-78-36 12:40:0078.9[facility] PewvxcbJLNJVDGIPG2432-21-18 12:40:004.09[facility] DRSWFUCAZZ3820-28-08 12:40:0020.4[facility] TBQUW0055-21-97 10:56:0028[facility] VREOR9642-86-24 10:56:007[facility] [place] URINE AND YXMBG2890-13-82 10:56:00Small *ABN*(03/02/17 4:56 AM)[facility] [place] URINE AND BDMAY4901-97-00 10:56:001.009[facility] YYZWK4749-58-50 10:56:00Slight *ABN*(03/02/17 4:56 AM)[facility] [id number] 10:56:00Yellow *NA*(03/02/17 4:56 AM)[facility] [id number] 10:56:00Negative *NA*(03/02/17 4:56 AM)[facility] NLOAX7364-78-12 10:56:006.5[facility] FBWLQ3495-00-60 10:56:00Small *ABN*(03/02/17 4:56 AM)[facility] [id number] 10:56:00 Negative (03/02/17 4:56 AM)[facility] RFCWC1597-30-57 10:56:0028 [facility] XPQHX5956-12-52 10:56:007[facility] PUWXQ0551-10-04 10:56:00Small *ABN*(03/02/17 4:56 AM)[facility] QKEHL1715-59-74 10:56:001.009[facility] RSBJX9169-96-09 10:56:00 Slight *ABN*(03/02/17 4:56 AM)[facility] [id number] 10:56:00 Yellow *NA*(03/02/17 4:56 AM)[facility] RPBOO7182-82-25 10:56:00 Negative *NA*(03/02/17 4:56 AM)[facility] RCRBS2688-74-35 10:56:006.5[facility] BEPLW8609-91-86 10:56:00Small *ABN*(03/02/17 4:56 AM)[facility] MNVHD9051-23-11 10:56:00 Negative (03/02/17 4:56 AM)[facility] PHIWMZD7617-23-24 09:52:00 Negative (03/02/17 3:52 AM)[facility] WlgqbsgWSJFSSTNVD5652-41-38 09:52:001+ *ABN*(03/02/17 3:52 AM)[facility] QyaandtUBEZNPQHJZ4901-22-08 09:52:000.4[facility] ByaivtnDFWXUELJKI5699-19-39 09:52:000.1[facility] AshbzecDYDRYKFDSL7650-89-14 09:52:000.9[facility] DaoyvmtZUJKLWJOWH7203-67-41 09:52:001.9[facility] Lc PENRMTCQIY9192-91-73 09:52:0011.0[facility] MvplxztPQKYHRRONI2697-78-90 09:52:00 6.3[facility] ByoyxxlGAKMMQDNOQ3309-61-68 09:52:0013.4[facility]ann[facility]MATOLOGY 2017-03-02 09:52:0079.6[facility] BfcbalmFGGOSFSGIX1772-42-92 09:52:000.3[facility] PxkdgurVPGRQPXZXI0054-76-46 09:52:008.3[facility] DqdfwocJVBUNFLQQJ0187-15-53 09:52:53414Nqxatprr TduswxoZYOEDIVEGO1016-45-41 09:52:0014.1[facility] YCIZAKLWOD0488-29-05 09:52:0033.5[facility] GnihjdsQPKMWCTCMT5272-72-76 09:52:00 Test Item Value Reference Range Interpretation Comments MCH (test code = MCH) 26.4 pg 27.0-31.0 [facility] MciavnjCAQJVYZCUE5500-37-01 09:52:0036.8[facility]annHEMATOLOGY 2017-03-02 09:52:0078.7[facility] ArlmptdAKCSRMRGVY7531-72-83 09:52:004.68[facility] UtcykczUGKPMXTRIJ1585-99-24 09:52:0012.3[facility] LlgjykiKODLNUNRQC4195-00-36 09:52:0013.9[facility] FvwcvwrBKFBXFYXDW5615-26-09 09:52:00Negative *NA*(03/02/17 3:52 AM)[facility] WzjawpgLLGWMNMVEE7126-49-72 09:52:00Non Reactive *NA*(03/02/17 3:52 AM)[facility] YctxrbgLHELPJXYYB8134-20-74 09:52:00Negative *NA*(03/02/17 3:52 AM)[facility] QWJQCVE0695-84-75 09:52:00Negative (03/02/17 3:52 AM)[facility] HqnuoxjMWWCMJOBZS1646-72-29 09:52:001+ *ABN*(03/02/17 3:52 AM) [facility] SksyevwANULGBXHAC8946-79-90 09:52:000.4[facility]annHEMATOLOGY 2017-03-02 09:52:000.1[facility] FrqcvklGYXDNCMGLU4626-57-60 09:52:000.9[facility] WovxyzzKELSVYSMQZ4246-64-39 09:52:001.9[facility] BnfspiwOKXYLGXXOO1122-70-18 09:52:0011.0[facility] GmhujfeIDDAUQMYHS4482-14-60 09:52:006.3[facility] UAOCVPQTRH6042-28-05 09:52:0013.4[facility] ZkrjylhJSTXMAUGKH2503-61-87 09:52:00 79.6[facility] KervthyEQESRDDFYN2026-41-30 09:52:000.3[facility]annHEMATOLOGY 2017-03-02 09:52:008.3[facility] VcvmxqxJXIUDITQBI2416-72-42 09:52:43727Hvjggrvx WtqwgbnAVRRFRYGXH2554-99-76 09:52:0014.1[facility] [id number] 09:52:0033.5[facility] [id number] 09:52:00 Test Item Value Reference Range Interpretation Comments MCH (test code = MCH) 26.4 pg 27.0-31.0 [facility] [id number] 09:52:0036.8[facility] 2017-03-02 09:52:0078.7[facility] [id number] 09:52:004.68[facility] [id number] 09:52:0012.3[facility] [id number] 09:52:0013.9[facility] [id number] 09:52:00Negative *NA*(03/02/17 3:52 AM)[facility] [id number] 09:52:00Non Reactive *NA*(03/02/17 3:52 AM)[facility] [id number] 09:52:00Negative *NA*(03/02/17 3:52 AM)[facility]
--- NOTE | 2020-02-18 17:22 | RAD REPORT ---
EXAM DESCRIPTION: RAD - Chest Pa And Lat (2 Views) - 02/18/2020 4:52 pm CLINICAL HISTORY: SOB Chest pain. COMPARISON: No comparisons FINDINGS: The lungs are clear. The heart is normal in size. No displaced fractures. IMPRESSION: No acute or concerning finding suspected.
[2020-02-18 17:25] LABS: Absolute Lymphocytes (CBC) 1.4 K/uL (0.7-4.9); Basophils % 0.5 % (0-1.3); Hematocrit 39.3 % (36.0-45.0); Lymphocytes % 19.8 % (15.3-44.8); MPV 8.7 fL (7.6-11.3); RBC Red Blood Cell Count 4.92 M/uL (3.86-4.86)
[2020-02-18 17:41] LABS: BUN Blood Urea Nitrogen 9 mg/dL (7-18); Bicarbonate 30 mmol/L (21-32); Glucose Level 89 mg/dL (74-106); Potassium 3.7 mmol/L (3.5-5.1); Sodium Level 139 mmol/L (136-145); Troponin (Emerg Dept Use Only) < 0.02 ng/mL (0.0-0.045)
[2020-02-18] MEDS ORDERED: ALBUTEROL 2.5 MG/3 ML NEB SOL ONE (18:00)
[2020-02-18] MEDS ORDERED: predniSONE 20 MG TAB ONE (18:03)
--- NOTE | 2020-02-18 18:29 | EDPHYS ---
Physician Documentation [facility] Name: Yeison Long Age: 30 yrs Sex: Female : 1990 Arrival Date: 02/18/2020 Time: 14:31 Bed 13 Private MD: ED Physician Matthew Godfrey HPI: 02/17 17:42 This 30 yrs old Female presents to ER via Ambulatory with complaints of pm1 Breathing Difficulty. 17:42 The patient has shortness of breath with light activity. pm1 17:42 Onset: The symptoms/episode began/occurred 5 day(s) ago. Duration: The symptoms are pm1 continuous, and are unchanged since they started. The patient's shortness of breath is aggravated by light activity, is alleviated by nothing. Associated signs and symptoms: Pertinent positives: chest pressure, Pertinent negatives: non-productive cough, productive cough, fever. Severity of symptoms: in the emergency department the symptoms are unchanged. The patient has been recently seen at an urgent care, for similar complaints, labs were performed, positive flu, negative covid 19. Historical: - Allergies: 15:17 No Known Allergies; hb - Home Meds: 15:17 None [Active]; hb - PMHx: 15:17 None; hb - PSHx: 15:17 None; hb - Immunization history:: Adult Immunizations up to date. - Social history:: Smoking status: Patient denies any tobacco usage or history of. ROS: 17:42 Constitutional: Negative for fever, chills, and weight loss, Neck: Negative for injury, pm1 pain, and swelling. 17:42 Abdomen/GI: Negative for abdominal pain, nausea, vomiting, diarrhea, and constipation, Back: Negative for injury and pain, MS/Extremity: Negative for injury and deformity, Skin: Negative for injury, rash, and discoloration, Neuro: Negative for headache, weakness, numbness, tingling, and seizure. 17:42 Cardiovascular: Positive for chest pain, Negative for edema, orthopnea, palpitations. 17:42 Respiratory: Positive for shortness of breath, Negative for cough, sputum production. Exam: 17:42 Constitutional: This is a well developed, well nourished patient who is awake, alert, pm1 and in no acute distress. 17:42 Neck: Trachea midline, no thyromegaly or masses palpated, and no cervical lymphadenopathy. Supple, full range of motion without nuchal rigidity, or vertebral point tenderness. No Meningismus. Cardiovascular: Regular rate and rhythm with a normal S1 and S2. No gallops, murmurs, or rubs. Normal PMI, no JVD. No pulse deficits. 17:42 Back: No spinal tenderness. No costovertebral tenderness. Full range of motion. Skin: Warm, dry with normal turgor. Normal color with no rashes, no lesions, and no evidence of cellulitis. MS/ Extremity: Pulses equal, no cyanosis. Neurovascular intact. Full, normal range of motion. 17:42 Respiratory: the patient does not display signs of respiratory distress, Respirations: normal, no acute changes, Breath sounds: wheezing: expiratory that is mild, is heard in the right posterior upper lobe. 17:42 Abdomen/GI: Inspection: abdomen appears normal, Palpation: abdomen is soft and non-tender, in all quadrants. 17:42 Neuro: Exam negative for acute changes, Orientation: is normal, Mentation: is normal, Motor: is normal, moves all fours. Vital Signs: 15:14 BP 117 / 78; Pulse 55; Resp 16; Temp 98.4; Pulse Ox 100% on R/A; Pain 6/10; hb 17:20 BP 110 / 80; Pulse 74; Pulse Ox 100% on R/A; jp3 18:20 BP 116 / 75; Pulse 88; Resp 16; Pulse Ox 100% on R/A; aj1 MDM: 15:18 Patient medically screened. pm1 18:25 Data reviewed: vital signs. Data interpreted: Pulse oximetry: on room air is 100 %. pm1 Interpretation: normal. 18:27 Counseling: I had a detailed discussion with the patient and/or guardian regarding: the pm1 historical points, exam findings, and any diagnostic results supporting the discharge/admit diagnosis, lab results, radiology results, the need for outpatient follow up, to return to the emergency department if symptoms worsen or persist or if there are any questions or concerns that arise at home. 02/17 16:37 Order name: Basic Metabolic Panel; Complete Time: 17:42 pm1 02/17 16:37 Order name: CBC with Diff; Complete Time: 17:42 pm1 02/17 16:37 Order name: Chest Pa And Lat (2 Views) XRAY; Complete Time: 17:42 pm1 02/17 16:37 Order name: Troponin (emerg Dept Use Only); Complete Time: 17:42 pm1 02/17 16:37 Order name: D-Dimer; Complete Time: 17:47 pm1 02/17 16:37 Order name: EKG; Complete Time: 16:38 pm1 02/17 16:37 Order name: EKG - Nurse/Tech; Complete Time: 17:35 pm1 02/17 16:37 Order name: IV Saline Lock; Complete Time: 17:35 pm1 02/17 16:37 Order name: Labs collected and sent; Complete Time: 17:36 pm1 Administered Medications: 18:04 Drug: Albuterol 2.5 mg Route: Inhalation; aj1 18:04 Drug: predniSONE 60 mg Route: PO; aj1 Disposition: 02/18 09:00 Co-signature as Attending Physician, Matthew Godfrey MD I agree with the assessment and zia plan of care. Disposition: 02/18/20 18:28 Discharged to Home. Impression: Influenza due to unidentified influenza virus. - Condition is Stable. - Discharge Instructions: Influenza, Adult. - Prescriptions for Medrol (Otto) 4 mg Oral Tablets, Dose Pack - take 1 tablet by ORAL route as directed - follow package instructions; 1 packet. Albuterol Sulfate 90 mcg/actuation - inhale 1-2 puff by INHALATION route every 4-6 hours; 1 Inhaler. - Medication Reconciliation Form, Thank You Letter, Antibiotic Education, Prescription Opioid Use form. - Follow up: Emergency Department; When: As needed; Reason: Worsening of condition. Follow up: Private Physician; When: 2 - 3 days; Reason: Recheck today's complaints, Continuance of care, Re-evaluation by your physician. - Problem is new. - Symptoms have improved. Signatures: Dispatcher [employer] EDMarielos Handy RN RN aj1 Matthew Godfrey MD MD cha Marinas, Patrick, RESEARCH ADVISOR RESEARCH ADVISOR pm1 Mary De Los Santos RN RN hb Corrections: (The following items were deleted from the chart) 02/17 19:02 18:28 02/18/2020 18:28 Discharged to Home. Impression: Influenza due to unidentified hb influenza virus. Condition is Stable. Forms are Medication Reconciliation Form, Thank You Letter, Antibiotic Education, Prescription Opioid Use. Follow up: Emergency Department; When: As needed; Reason: Worsening of condition. Follow up: Private Physician; When: 2 - 3 days; Reason: Recheck today's complaints, Continuance of care, Re-evaluation by your physician. Problem is new. Symptoms have improved. pm1
--- NOTE | 2020-02-18 18:29 | ER ---
Nurse's Notes [facility] Name: Yeison Long Age: 30 yrs Sex: Female : 1990 Arrival Date: 02/18/2020 Time: 14:31 Bed 13 Private MD: Diagnosis: Influenza due to unidentified influenza virus Presentation: 02/17 15:14 Chief complaint: Chest tightness and pain with breathing x 5 days. Seen at [facility] Wednesday, tested positive for Flu A, negative COVID, finished Tamiflu this morning. Coronavirus screen: At this time, the client does not indicate any symptoms associated with coronavirus-19. Ebola Screen: No symptoms or risks identified at this time. Initial Sepsis Screen: Does the patient meet any 2 criteria? No. Patient's initial sepsis screen is negative. Does the patient have a suspected source of infection? No. Patient's initial sepsis screen is negative. Risk Assessment: Do you want to hurt yourself or someone else? Patient reports no desire to harm self or others. Onset of symptoms was February 14, 2020. 15:14 Method Of Arrival: Ambulatory 15:14 Acuity: GABRIELA 3 hb Historical: - Allergies: 15:17 No Known Allergies; hb - Home Meds: 15:17 None [Active]; hb - PMHx: 15:17 None; hb - PSHx: 15:17 None; hb - Immunization history:: Adult Immunizations up to date. - Social history:: Smoking status: Patient denies any tobacco usage or history of. Screenin:00 Abuse screen: Denies threats or abuse. Denies injuries from another. Nutritional aj1 screening: No deficits noted. Tuberculosis screening: No symptoms or risk factors identified. 18:58 Fall Risk None identified. aj1 Assessment: 16:00 General: Appears in no apparent distress. comfortable, Behavior is calm, cooperative, aj1 appropriate for age. Pain: Complains of pain in chest Pain does not radiate. Pain currently is 3 out of 10 on a pain scale. Quality of pain is described as aching, Pain began 2-3 days ago. Neuro: Level of Consciousness is awake, alert, obeys commands, Oriented to person, place, time, situation. Cardiovascular: Reports chest pain, shortness of breath, Heart tones S1 S2 present Patient's skin is warm and dry. Rhythm is regular. Respiratory: Reports shortness of breath on exertion Airway is patent Respiratory effort is even, unlabored, Respiratory pattern is regular, symmetrical, Breath sounds are clear bilaterally. GI: No signs and/or symptoms were reported involving the gastrointestinal system. : No signs and/or symptoms were reported regarding the genitourinary system. EENT: No signs and/or symptoms were reported regarding the EENT system. Derm: No signs and/or symptoms reported regarding the dermatologic system. Skin is pink, warm \T\ dry. normal. Musculoskeletal: No signs and/or symptoms reported regarding the musculoskeletal system. Circulation, motion, and sensation intact. 17:00 Reassessment: Patient appears in no apparent distress at this time. No changes from aj1 previously documented assessment. Patient and/or family updated on plan of care and expected duration. Pain level reassessed. Patient is alert, oriented x 3, equal unlabored respirations, skin warm/dry/pink. 18:00 Reassessment: Patient appears in no apparent distress at this time. No changes from aj1 previously documented assessment. Patient and/or family updated on plan of care and expected duration. Pain level reassessed. Patient is alert, oriented x 3, equal unlabored respirations, skin warm/dry/pink. 18:57 Reassessment: Patient appears in no apparent distress at this time. No changes from aj1 previously documented assessment. Patient and/or family updated on plan of care and expected duration. Pain level reassessed. Patient is alert, oriented x 3, equal unlabored respirations, skin warm/dry/pink. Vital Signs: 15:14 BP 117 / 78; Pulse 55; Resp 16; Temp 98.4; Pulse Ox 100% on R/A; Pain 6/10; hb 17:20 BP 110 / 80; Pulse 74; Pulse Ox 100% on R/A; jp3 18:20 BP 116 / 75; Pulse 88; Resp 16; Pulse Ox 100% on R/A; aj1 ED Course: 14:31 Patient arrived in ED. ds1 15:16 Triage completed. hb 15:17 Joel Iniguez NP is PHCP. pm1 15:17 Matthew Godfrey MD is Attending Physician. pm1 15:17 Arm band placed on. hb 16:00 Patient has correct armband on for positive identification. campus monitor on. Pulse aj1 ox on. NIBP on. 16:00 No provider procedures requiring assistance completed. Patient maintains SpO2 aj1 saturation greater than 95% on room air. 16:44 Marielos Leiva, RN is Primary Nurse. aj1 16:49 Chest Pa And Lat (2 Views) XRAY In Process Unspecified. EDMS 17:16 Inserted saline lock: 20 gauge in right antecubital area, using aseptic technique. jp3 Blood collected. 17:16 Initial lab(s) drawn, by co, sent to lab. jp3 17:23 X-ray(s) taken. jp3 17:28 EKG done, by ED staff, reviewed by Joel Iniguez FINANCIAL SERVICES SPECIALIST. jp3 Administered Medications: 18:04 Drug: Albuterol 2.5 mg Route: Inhalation; aj1 18:04 Drug: predniSONE 60 mg Route: PO; aj1 Outcome: 18:28 Discharge ordered by . pm1 19:02 Discharged to home ambulatory. hb 19:02 Condition: stable 19:02 Discharge instructions given to patient, Instructed on discharge instructions, follow up and referral plans. medication usage, Demonstrated understanding of instructions, follow-up care, medications, Prescriptions given X 2. 19:02 Patient left the ED. hb Signatures: Dispatcher [employer] EDNE Marielos Leiva, GRECIA RN aj1 Margo Teixeira ds1 Joel Iniguez NP FINANCIAL SERVICES SPECIALIST pm1 Mary De Los Santos RN RN Arnol Alvarado jp3
[2020-02-18 19:10] VITALS: TEMP 98.4; O2SAT 100
[2020-02-18 19:18] VITALS: BP 116/75
--- NOTE | 2020-02-19 07:23 | EKG ---
Test Date: 2020-02-18 Test Time: 17:30:41 Apprenticeship Training Representative: YAMILA MEASUREMENT RESULTS: Intervals: Rate: 77 TN: 110 QRSD: 82 QT: 380 QTc: 430 Oran: P: 39 TN: 110 QRS: 12 T: 27 INTERPRETIVE STATEMENTS: Sinus rhythm with short TN Otherwise normal ECG No previous ECG available for comparison Electronically Signed On 02-19-20 07:22:27 GUEST SERVICE AGENT by Jason Osorio
== END 2020-02-18 19:02 | disposition home or self-care (01) ==
LOC: ER 14:30
DX: J11.1 Influenza due to unidentified influenza virus with other respiratory manifestations (principal)
CPT/HCPCS: 93005; 85025; 80048; 36415; 85379; 84484; 71046; 99285; J7512

== ENCOUNTER 2022-09-01 14:03 | Emergency (ER) | payer OTHER ==
--- OUTSIDE RECORDS SUMMARY | 2022-09-01 14:13 | XMS REPORT | Continuity of Care Document ---
:1990 Author Organization [facility] t Address [address] [place]. [address] [place] [address] Care Team Providers Name Role Phone PCP, PATIENT DOES NOT HAVE A Primary Care Physician UnavailNadeem Faulkner Attending Clinician Unavailable AMY CEE Attending Clinician Unavailable Amy Tan Attending Clinician Unknown, Attending Attending Clinician Unavailable Brenda Todd MD Attending Clinician BRENDA TODD Attending Clinician Unavailable CARLITO VELASCO Attending Clinician Unavailable Carlito Jaime Attending Clinician Doctor Unassigned, [place] Attending Clinician Unavailable Zoya_Aquiles Attending Clinician Unavailable TRINA RANDALL Attending Clinician Unavailable CHENG CERVANTES Attending Clinician Unavailable Brad Whitman MD Attending Clinician Only, Ang Db Test Attending Clinician Unavailable MAHESH KUMAR Attending Clinician Unavailable ESTEFANI CRISTOBAL Attending Clinician Unavailable Olya Attending Clinician Unavailable Pcp, Patient Does Not Have A Attending Clinician Tracie Aguero RN Attending Clinician Unavailable Terri Chavez Attending Clinician Rufino Admitting Clinician Unavailable CHENG CERVANTES Admitting Clinician Unavailable Olya Admitting Clinician Unavailable Terri Chavez Admitting Clinician Payers Payer Name Policy Type Policy Effective Date Expiration Date Jannet RUANO II [id number] 2020 00:00:00 [facility] [id number] 2018 00:00:00 [facility] [id number] 2018 (PPO) 00:00:00 [facility] [id number] 2018 [facility] 00:00:00 - [facility] Problems Condition Condition Condition Status Onset Resolution Last Treating Co mments Source Name Details Category Date Date Treatment Clinician Date SROM SROM Diagnosis Active 2016-042017-03-02 Mem oria Active 05-02 02:56:00 l 03/02/2017 00:00: Elio kong [address] VAGINAL VAGINAL Diagnosis Active 2017-02-24 Memaleshia DEL DEL 12-22 09:19:00 l Active 12:20: cL 12/22/2016 00 [facility] SCREEN FOR SCREEN Diagnosis Active 2016-10-16 Memoria ANOMALIES FOR 09-21 13:32:00 l ANOMALIES 00:00: Lc Active 00 09/21/2016 Brenda Platt No known No known Disease Unive rs active active ity of problems problems [facility] [id number] GERD Problem Active Common without Spirit esophagiti - [facility] s [facility] [id number] Allergic Problem Active Commo n rhinitis, Spirit unspecifie - [facility]I d [facility] unspecifie Center d trigger [id number] Insomnia, Problem Active Com mon unspecifie Spirit d type - [facility] [id number] ANNABELLE Problem Active Common (generaliz Spirit ed anxiety - CHI disorder) [facility] Patient Patient Problem Resolve 2016-042017-03-08 2017-03-08 Memoria currently currently d 05-02 01:58:02 01:58:02 l 00:00: Elio kong (finding) (finding) 00 Resolved 03/02/2017 Problem 03/08/2017 [facility] Allergies, Adverse Reactions, Alerts Allergy Allergy Status Severity Reaction(s) Onset Inactive Treating Comm ents Source Name Type Date Date Clinician NO KNOWN Drug Active Univers ALLERGIE Class ity of S [facility] Family History Family Member Diagnosis Comments Start Date Stop Date Source Natural mother Autoimmune disease [facility] Natural mother Diverticulitis Method ist [facility] Natural mother Endometriosis [facility] Social History Social Habit Start Date Stop Date Quantity Comments Source Gender identity 2021-05-12 Identifies as Method ist 13:06:37 female gender Hospital (finding) Sexual orientation 2021-05-12 Heterosexual Meth odist 13:06:37 (finding) Hospital History of Tobacco [facility] - Use [facility] Sex Assigned At [facility] lakeisha - [facility] Exposure to 2022-02-02 2022-02-12 Not sure University of SARS-CoV-2 (event) 00:00:00 17:26:00 [facility] Tobacco use and 2021-12-27 2021-12-27 Smokeless tobacco Un iversity of exposure 00:00:00 00:00:00 non-user [facility] Alcohol intake 2021-06-11 2021-06-11 [facility]00 alcohol (finding) Hospita l History of Social 2021-06-11 2021-06-[address] function 00:00:00 00:00:00 Hospital Alcohol Comment 2021-05-09 2021-05-09 occasional Sabianism 00:00:00 00:00:00 [facility] Cigarettes smoked 2021-05-09 2021-05-[address] current (pack per 00:00:00 00:00:00 Hospita day) - Reported Cigarette 2021-05-09 2021-05-09 Sabianism pack-years 00:00:00 00:00:00 Hospital Smoking Status Start Date Stop Date Source Never Smoker [facility] Spirit - [facility] Social History 2017-03-02 09:30:41 2017-03-02 09:30:41 [facility] Medications Ordered Filled Start Stop Current Ordering Indication Dosage Frequency Signature Comments Components Source Medication Medication Date Date Medication? Clinician (SIG) Name Name Philipp 2021-04- No [id number] 12mg Take 3 Univers ne 4 mg 04-14 tablets by ity o f tablet 00:00: 04:59 [place] :[place] now for 1 Medical dose. Branch Nitrofurant Yes nitrofuran Univers oin&Nit. 9-17 toin ity of Macrocryst 10:32: monohydrat [place] 100 mg 19 e/macrocry Medical capsule stals 100 Branch mg capsule Take 1 capsule every 12 hours by oral route. Nitrofurant 0 Yes nitrofuran Univers oin&Nit. 9-17 toin ity of Macrocryst 10:32: monohydrat [place] 100 mg 19 e/macrocry Medical capsule stals 100 Branch mg capsule Take 1 capsule every 12 hours by oral route. Nitrofurant 0 Yes nitrofuran Univers oin&Nit. 9-17 toin ity of Mac[place] 10:32: monohydrat [place] 100 mg 19 e/macrocry Medical capsule stals 100 Branch mg capsule Take 1 capsule every 12 hours by oral route. polyethylen 2021-0 Yes [id number] 1{packe Take 1 Univers e glycol 9-17 t} Packet by ity of 3350 17 00:00: mouth in [place] gram powder 00 the Medical morning. Branch polyethylen 2021-0 Yes [id number] 1{packe Take 1 Univers e glycol 9-17 t} Packet by ity of 3350 17 00:00: mouth in [place] gram powder 00 the Medical morning. Branch polyethylen 2021-0 Yes [id number] 1{packe Take 1 Univers e glycol 9-17 t} Packet by ity of 3350 17 00:00: mouth in [place] gram powder 00 the Medical morning. Branch sucralfate Yes TAKE ONE Uni vers 1 gram 8-07 (1) ity of tablet 00:00: TABLET(S) BY MOUTH Medical FOUR TIMES Branch PER DAY. TAKE 1 HOUR BEFORE MEALS AND AT BEDTIME ON AN EMPTY STOMACH. sucralfate 2021-0 Yes TAKE ONE Uni vers 1 gram 8-07 (1) ity of tablet 00:00: TABLET(S) BY MOUTH Medical FOUR TIMES Branch PER DAY. TAKE 1 HOUR BEFORE MEALS AND AT BEDTIME ON AN EMPTY STOMACH. sucralfate 2021-0 Yes TAKE ONE Uni vers 1 gram 8-07 (1) ity of tablet 00:00: TABLET(S) BY MOUTH Medical FOUR TIMES Branch PER DAY. TAKE 1 HOUR BEFORE MEALS AND AT BEDTIME ON AN EMPTY STOMACH. sumatriptan 2021-0 Yes TAKE ONE Un janes 100 mg 6-28 (1) ity of tablet 00:00: TABLET(S) [place] 00 BY MOUTH Medical TWICE A Branch DAY WITH AT LEAST TWO HOURS BETWEEN DOSES NEEDED. sumatriptan 2021-0 Yes TAKE ONE Un janes 100 mg 6-28 (1) ity of tablet 00:00: TABLET(S) [place] 00 BY MOUTH Medical TWICE A Branch DAY WITH AT LEAST TWO HOURS BETWEEN DOSES NEEDED. sumatriptan 2021-0 Yes TAKE ONE Un janes 100 mg 6-28 (1) ity of tablet 00:00: TABLET(S) [place] 00 BY MOUTH Medical TWICE A Branch DAY WITH AT LEAST TWO HOURS BETWEEN DOSES NEEDED. clindamycin 2021-0 Yes TAKE ONE Un [place]anes 300 mg 6-22 (1) ity of capsule 00:00: CAPSULE(S) [place] 00 BY MOUTH Medical TWICE A Branch DAY FOR 7 DAYS. clindamycin 2021-0 Yes TAKE ONE Un janes 300 mg 6-22 (1) ity of capsule 00:00: CAPSULE(S) [place] 00 BY MOUTH Medical TWICE A Branch DAY FOR 7 DAYS. clindamycin 2021-0 Yes TAKE ONE Un [place]anes 300 mg 6-22 (1) ity of capsule 00:00: CAPSULE(S) [place] 00 BY MOUTH Medical TWICE A Branch DAY FOR 7 DAYS. peppermint 2021-0 Yes 1{capsu Take 1 Un janes oiL 50 mg 3-08 le} capsule by ity of CpDR 00:00: mouth. [address] peppermint 2021-0 Yes 1{capsu Take 1 Un janes oiL 50 mg 3-08 le} capsule by ity of CpDR 00:00: mouth. [address] peppermint 2021-0 Yes 1{capsu Take 1 Un janes oiL 50 mg 3-08 le} capsule by ity of CpDR 00:00: mouth. [address] peppermint 2021-0 Yes [id number] 1{capsu Q.5D Take 1 Methodi oiL 50 mg 3-08 le} capsule by st capsule,del 00:00: mouth 2 Hos starla ayed 00 (two) l release(DR/ times a EC) day before meals. ZINC ORAL Yes Take by Metho di [address] 16:31: Hospita 15 l UNABLE TO Yes Med Name: Met ammon PEGUERO 06-[address] 16:31: cidar Hospita 15 vinegar l gummies cholecalcif Yes Take by Met ammon villarrealol, [address] vitamin D3, 16:31: drops Hospi ta (VITAMIN D3 15 l ORAL) ascorbic Yes Take by Method i acid 06-[address] (VITAMIN C 16:30: Hospita ORAL) 31 l Norethindrn Yes 1{tbl} Take 1 Un janes A-E 1-22 tablet by ity of Estradiol-I 00:00: mouth [place] harvey (SHILPA 00 every Medical 24 FE) 1 morning. Branch mg-20 mcg (24)/75 mg (4) per tablet Norethindrn Yes 1{tbl} Take 1 Un janes A-E 1-22 tablet by ity of Estradiol-I 00:00: mouth [place] harvey (SHILPA 00 every Medical 24 FE) 1 morning. Branch mg-20 mcg (24)/75 mg (4) per tablet Norethindrn Yes 1{tbl} Take 1 Un janes A-E 1-22 tablet by ity of Estradiol-I 00:00: mouth [place] harvey (SHILPA 00 every Medical 24 FE) 1 morning. Branch mg-20 mcg (24)/75 mg (4) per tablet Shilpa 24 Fe Yes 1{tbl} QD Take 1 Me thodi 1 mg-20 mcg 1-[address] (24)/75 mg 00:00: mouth Hospit a (4) per 00 daily. l tablet pantoprazol Yes pantoprazo Univers e 40 mg EC 1-13 le 40 mg ity o f tablet 00:00: tablet,[address] TAKE ONE (1) TABLET(S) BY MOUTH ONCE A DAY 30 MINS BEFORE BREAKFAST. pantoprazol Yes pantoprazo Univers e 40 mg EC 1-13 le 40 mg ity o f tablet 00:00: tablet,[facility] [place] [facility] TAKE ONE (1) TABLET(S) BY MOUTH ONCE A DAY 30 MINS BEFORE BREAKFAST. pantoprazol Yes pantoprazo Univers e 40 mg EC 1-13 le 40 mg ity o f tablet 00:00: tablet,del 00 ayed Medical release Branch TAKE ONE (1) TABLET(S) BY MOUTH ONCE A DAY 30 MINS BEFORE BREAKFAST. pantoprazol Yes TAKE ONE Me thodi e 1-13 (1) st (PROTONIX) 00:00: TABLET(S) Ho spita 40 MG EC 00 BY MOUTH l tablet ONCE A DAY 30 MINS BEFORE BREAKFAST. famotidine 2020-04 Yes famotidine U nivers 40 mg 2-10 40 mg ity of tablet 00:00: tablet TAKE ONE Medical (1) Branch TABLET(S) BY MOUTH DAILY AT BEDTIME. famotidine 2020-04 Yes famotidine U nivers 40 mg 2-10 40 mg ity of tablet 00:00: tablet TAKE ONE Medical (1) Branch TABLET(S) BY MOUTH DAILY AT BEDTIME. famotidine 2020-04 Yes famotidine U nivers 40 mg 2-10 40 mg ity of tablet 00:00: tablet TAKE ONE Medical (1) Branch TABLET(S) BY MOUTH DAILY AT BEDTIME. famotidine 2020-04 Yes 40mg QD Take 40 mg M ethodi (PEPCID) 40 2-[address] MG tablet 00:00: nightly. Hosp ondina 00 l Medrol 4 MG Medrol 4 MG 2020- No Medrol 4 3-30 04-05 MG 00:00: 00:00 00 :00 BuPROPion BuPROPion No QD BuPROPion HCl ER (SR) HCl ER (SR) 3-24 HCl ER 150 MG 150 MG 00:00: (SR) 150 00 MG BuPROPion BuPROPion No QD BuPROPion HCl ER (SR) HCl ER (SR) 3-24 HCl ER 150 MG 150 MG 00:00: (SR) 150 00 MG BuPROPion BuPROPion No QD BuPROPion HCl ER (SR) HCl ER (SR) 3-24 HCl ER 150 MG 150 MG 00:00: (SR) 150 00 MG ProAir HFA ProAir HFA No 2{puffs ProAir HFA 108 (90 108 (90 2-02 _as_nee 108 (90 Base) Base) 00:00: ded} Base) MCG/ACT MCG/ACT 00 MCG/ACT ProAir HFA ProAir HFA No 2{puffs ProAir HFA 108 (90 108 (90 2-02 _as_nee 108 (90 Base) Base) 00:00: ded} Base) MCG/ACT MCG/ACT 00 MCG/ACT ProAir HFA ProAir HFA No 2{puffs ProAir HFA 108 (90 108 (90 2-02 _as_nee 108 (90 Base) Base) 00:00: ded} Base) MCG/ACT MCG/ACT 00 MCG/ACT ProAir HFA ProAir HFA No 2{puffs ProAir HFA 108 (90 108 (90 2-02 _as_nee 108 (90 Base) Base) 00:00: ded} Base) MCG/ACT MCG/ACT 00 MCG/ACT ProAir HFA ProAir HFA No 2{puffs 108 (90 108 (90 2-02 _as_nee Base) Base) 00:00: ded} MCG/ACT MCG/ACT 00 ProAir HFA ProAir HFA No 2{puffs ProAir HFA 108 (90 108 (90 2-02 _as_nee 108 (90 Base) Base) 00:00: ded} Base) MCG/ACT MCG/ACT 00 MCG/ACT ProAir HFA ProAir HFA No 2{puffs 108 (90 108 (90 2-02 _as_nee Base) Base) 00:00: ded} MCG/ACT MCG/ACT 00 ProAir HFA ProAir HFA No 2{puffs 108 (90 108 (90 2-02 _as_nee Base) Base) 00:00: ded} MCG/ACT MCG/ACT 00 ProAir HFA ProAir HFA No 2{puffs ProAir HFA 108 (90 108 (90 2-02 _as_nee 108 (90 Base) Base) 00:00: ded} Base) MCG/ACT MCG/ACT 00 MCG/ACT ProAir HFA ProAir HFA No 2{puffs ProAir HFA 108 (90 108 (90 2-02 _as_nee 108 (90 Base) Base) 00:00: ded} Base) MCG/ACT MCG/ACT 00 MCG/ACT ProAir HFA ProAir HFA No 2{puffs ProAir HFA 108 (90 108 (90 2-02 _as_nee 108 (90 Base) Base) 00:00: ded} Base) MCG/ACT MCG/ACT 00 MCG/ACT ProAir HFA ProAir HFA No 2{puffs ProAir HFA 108 (90 108 (90 2-02 _as_nee 108 (90 Base) Base) 00:00: ded} Base) MCG/ACT MCG/ACT 00 MCG/ACT ProAir HFA ProAir HFA No 2{puffs ProAir HFA 108 (90 108 (90 2-02 _as_nee 108 (90 Base) Base) 00:00: ded} Base) MCG/ACT MCG/ACT 00 MCG/ACT ProAir HFA ProAir HFA No 2{puffs ProAir HFA 108 (90 108 (90 2-02 _as_nee 108 (90 Base) Base) 00:00: ded} Base) MCG/ACT MCG/ACT 00 MCG/ACT ProAir HFA ProAir HFA No 2{puffs ProAir HFA 108 (90 108 (90 2-02 _as_nee 108 (90 Base) Base) 00:00: ded} Base) MCG/ACT MCG/ACT 00 MCG/ACT Azithromyci Azithromyci QD Azithromyc n 250 MG n 250 MG 05-14 in 250 MG 00:00: 00:00 00 :00 influenza 2016-04 No Notes: Memori a virus 1-24 (Same as: l vaccine, 19:28: Fluzone Elio n inactivated 00 Quadrivale nt, Fluarix Quadrivale nt) For 3 years of age and older (0.5 mL IM) Shake well before use influenza 2016-04 No Notes: Memori a virus 1-24 (Same as: l vaccine, 19:28: Fluzone Elio [...] tab, PO, l tablet 16:01: Q6H, PRN [place] 00 Pain, take with food, X 7 [...] tab, PO, l tablet 16:01: Q6H, PRN [place] 00 Pain, take with food, X 7 [...] tab, PO, l tablet 16:01: Q6H, PRN [place] 00 Pain, take with food, X 7 [...] tab, PO, l tablet 16:01: Q6H, PRN [place] 00 Pain, take with food, X 7 [...] tab, PO, l tablet 16:01: Q6H, PRN [place] 00 Pain, take with food, X 7 day, # 30 tab, 1 Refill(s) influenza 2016-04 No Notes: Memori a virus -23 (Same as: l vaccine, 15:00: Fluzone Elio n inactivated 00 Quadrivale nt, Fluarix Quadrivale nt) For 3 years of age and older (0.5 mL IM) Shake well before use influenza 2016-04 No Notes: Memori a virus 1-23 (Same as: l vaccine, 15:00: Fluzone Elio n inactivated 00 Quadrivale nt, Fluarix Quadrivale nt) For 3 years of age and older (0.5 mL IM) Shake well before use influenza 2016-04 No Notes: Memori a virus 1-23 (Same as: l vaccine, 15:00: Fluzone Elio n inactivated 00 Quadrivale nt, Fluarix Quadrivale nt) For 3 years of age and older (0.5 mL IM) Shake well before use influenza 2016-04 No Notes: Memori a virus 1-23 (Same as: l vaccine, 15:00: Fluzone Elio [...] use Ibuprofen 2016-04 No Notes: Memori a - (Same as: l 18:00: Motrin) [place] 00 "Do Not Crush" Take with food. Ibuprofen 2016-04 No Notes: Memori a - (Same as: l 18:00: Motrin) [place] 00 "Do Not Crush" Take with food. Ibuprofen 2016-04 No Notes: Memori a 05-03 (Same as: l 18:00: Motrin) [place] 00 "Do Not Crush" Take with food. Ibuprofen 2016-04 No Notes: Memori a 05-03 (Same as: l 18:00: Motrin) L[place] 00 "Do Not Crush" Take with food. Ibuprofen 2016-04 No Notes: Memori a - (Same as: l 18:00: Motrin) L[place] 00 [...] 82.727, kg, Daily, Start date: 03/03/17 9:00:00 [employer], Duration: 30 day, Stop date: 04/01/17 9:00:00 [employer] 0.5 ML 2016-04 No Notes: Memoria Bordetella [...] Notes: Memoria 05-03 (Same as: l 15:00: -M-R II) [place] 00 (measles-m umps-rubel la virus vaccine 0.5 ml INJ VL) WASTE: F/P - Red; E -Red GIVE PRIOR TO DISCHARGE 2016-04 No 1 tab, Memoria Multivitami 05-03 Route: PO, l ns oral 15:00: Drug Form: Herm aniceto tablet 00 TAB, Dosing Weight 82.727, kg, Daily, Start date: 03/03/17 9:00:00 [employer], Duration: 30 day, Stop date: 04/01/17 9:00:00 [employer] 0.5 ML 2016-04 No Notes: Memoria Bordetella 05-03 (Tdap ) l pertussis 15:00: For Lc filamentous 00 Adolecent hemagglutin and Adult in vaccine, use For IM inactivated Use. Same 0.01 MG/ML as: Adacel / (Tdap) Bordetella pertussis fimbriae 2/3 vaccine, inactivated 0.01 MG/ML / Bordetella pertussis pertactin vaccine, inactivated 0.006 MG/ML / Bordetella pertussis toxoid vacci -M-R II 2016-04 No Notes: Memoria 05-03 (Same as: l 15:00: -M-R II) [place] 00 (measles-m umps-rubel la virus vaccine 0.5 ml INJ VL) WASTE: F/P - Red; E -Red GIVE PRIOR TO DISCHARGE 2016-04 No 1 tab, Memoria Multivitami 05-03 Route: PO, l ns oral 15:00: Drug Form: Herm aniceto tablet 00 TAB, Dosing Weight 82.727, kg, Daily, Start date: 03/03/17 9:00:00 [employer], Duration: 30 day, Stop date: 04/01/17 9:00:00 [employer] 0.5 ML 2016-04 No Notes: Memoria Bordetella 05-03 (Tdap ) l pertussis 15:00: For [place] filamentous 00 Adolecent hemagglutin and Adult in vaccine, use For IM inactivated Use. Same 0.01 MG/ML as: Adacel / (Tdap) Bordetella pertussis fimbriae 2/3 vaccine, inactivated 0.01 MG/ML / Bordetella pertussis pertactin vaccine, inactivated 0.006 MG/ML / Bordetella pertussis toxoid vacci M-M-R II 2016-04 No Notes: Memoria 05-03 (Same as: l 15:00: M-M-R II) Lc (measles-m umps-rubel la virus vaccine 0.5 ml INJ VL) WASTE: F/P - Red; E -Red GIVE PRIOR TO DISCHARGE 2016-04 No 1 tab, Memoria Multivitami 05-03 Route: PO, l ns oral 15:00: Drug Form: Herm aniceto tablet 00 TAB, Dosing Weight 82.727, kg, Daily, Start date: 03/03/17 9:00:00 [employer], Duration: 30 day, Stop date: 04/01/17 9:00:00 [employer] 0.5 ML 2016-04 No Notes: Memoria Bordetella 05-03 (Tdap ) l pertussis 15:00: For [place] filamentous 00 Adolecent hemagglutin and Adult in [...] 82.727, kg, Daily, Start date: 03/03/17 9:00:00 [employer], Duration: 30 day, Stop date: 04/01/17 9:00:00 [employer] Acetaminoph 2016-04 No Notes: Do M emoria en 325 MG / 05-03 not exceed l Hydrocodone 14:48: 4gm/day of Lc Bitartrate 00 acetaminop 10 MG Oral hen. (Same Tablet as: [place] 325/10) Acetaminoph 2016-04 No Notes: Chen[place] latasha en 325 MG / 05-03 (Same as: l Hydrocodone 14:48: [place] Marguerite nn Bitartrate 00 325/5) Do 5 MG Oral not exceed Tablet 4gm/day of acetaminop hen. zolpidem 2016-04 No Notes: Memoria 05-03 (Same As: l 14:48: Ambien) [place] Methylergon 2016-04 No Notes: [place] latasha ovine - (Same l 14:48: as:Metherg [place] ine) lanolin 2016-04 No Notes: Memoria topical 05-03 (Same l 14:48: as:Lanolin [place] 00 ) Benzocaine 2016-04 No Notes: Memor ia 200 MG/ML 05-03 (Same As: l Topical 14:48: Dermoplast Herm aniceto [place] ) WASTE: [Dermoplast Aerosol - ] Return to Pharmacy FOR EXTERNAL USE ONLY Docusate 2016-04 No Notes: Memoria - (Same as: l 14:48: Colace) [place] (Do Not Crush) Bisacodyl 2016-04 No Notes: Memori a 05-03 (Same As: l 14:48: Dulcolax, [place] 00 Correctol) (Do Not Crush) "Do Not Crush" Lactated 2016-04 No 1,000 mL, [place] latasha Ringers IV 05-03 Rate: 100 l 1,000 mL 14:48: ml/hr, [place] 00 Infuse over: 10 hr, Route: IV, Dosing Weight 82.727 kg, Total Volume: 1,000, Start date: 03/03/17 8:48:00 [employer], Duration: 30 day, Stop date: 04/02/17 8:47:00 [employer], 1.93, m2 Oxytocin 2016-04 No 30 unit, Memor ia - 500 mL, l 14:48: Rate: 42 [place] 00 ml/hr, Infuse over: 11.9 hr, Dosing Weight 82.727, kg, Route: IV, Total Volume: 500 mL, Start date: 03/03/17 8:48:00 [employer], Duration: 2 day, Stop date: 03/05/17 8:47:00 [employer], Replace Every: 11.9 hr Ondansetron 2016-04 No Notes: [place] latasha 05-03 (Same as: l 14:48: Zofran) [place] 00 MEDICATION WASTE Product Size: 4 mg Product Wasted: ___ mg Acetaminoph 2016-04 No Notes: Do M emoria en 325 MG / 05-03 not exceed l Hydrocodone 14:48: 4gm/day of [place] Bitartrate 00 acetaminop 10 MG Oral hen. (Same Tablet as: [place] 325/10) Acetaminoph 2016-04 No Notes: [place] latasha en 325 MG / 05-03 (Same as: l Hydrocodone 14:48: [place] Marguerite nn Bitartrate 00 325/5) Do 5 MG Oral not exceed Tablet 4gm/day of acetaminop hen. zolpidem 2016-04 No Notes: Memoria - (Same As: l 14:48: Ambien) [place] 00 Methylergon 2016-04 No Notes: [place] latasha ovine - (Same l 14:48: as:Metherg Lc 00 ine) lanolin 2016-04 No Notes: Memoria topical - (Same l 14:48: as:Lanolin L[place] 00 ) Benzocaine 2016-04 No Notes: Memor ia 200 MG/ML 05-03 (Same As: l Topical 14:48: Dermoplast Herm aniceto [place] 00 ) WASTE: [Dermoplast Aerosol - ] Return to Pharmacy FOR EXTERNAL USE ONLY Docusate 2016-04 No Notes: Memoria - (Same as: l 14:48: Colace) [place] 00 [...] Total Volume: 1,000, Start date: 03/03/17 8:48:00 [employer], Duration: 30 day, Stop date: 04/02/17 8:47:00 [employer], 1.93, m2 Oxytocin 2016-04 No 30 unit, Memor ia 05-03 500 mL, l 14:48: Rate: 42 Lc 00 ml/hr, Infuse over: 11.9 hr, Dosing Weight 82.727, kg, Route: IV, Total Volume: 500 mL, Start date: 03/03/17 8:48:00 [employer], Duration: 2 day, Stop date: 03/05/17 8:47:00 [employer], Replace Every: 11.9 hr Ondansetron 2016-04 No Notes: [place] latasha 05-03 (Same as: l 14:48: Zofran) [place] 00 MEDICATION WASTE Product Size: 4 mg Product Wasted: ___ mg Acetaminoph 2016-04 No Notes: Do M emoria en 325 MG / 05-03 not exceed l Hydrocodone 14:48: 4gm/day of [place] Bitartrate 00 acetaminop 10 MG Oral hen. (Same Tablet as: [place] 325/10) Acetaminoph 2016-04 No Notes: [place] latasha en 325 MG / 05-03 (Same as: l Hydrocodone 14:48: [place] Marguerite nn Bitartrate 00 325/5) Do 5 MG Oral not exceed Tablet 4gm/day of acetaminop hen. zolpidem 2016-04 No Notes: Memoria 05-03 (Same As: l 14:48: Ambien) [place] Methylergon 2016-04 No Notes: [place] latasha ovine 05-03 (Same l 14:48: as:Metherg L[place] 00 ine) lanolin 2016-04 No Notes: Memoria topical 05-03 (Same l 14:48: as:Lanolin [place] 00 ) Benzocaine 2016-04 No Notes: Memor ia 200 MG/ML 05-03 (Same As: l Topical 14:48: Dermoplast Herm aniceto [place] 00 ) WASTE: [Dermoplast Aerosol - ] Return to Pharmacy FOR EXTERNAL USE ONLY Docusate 2016-04 No Notes: Memoria 05-03 (Same as: l 14:48: Colace) [place] 00 (Do Not Crush) Bisacodyl 2016-04 No Notes: Memori a 05-03 (Same As: l 14:48: Dulcolax, [place] 00 Correctol) (Do Not Crush) "Do Not Crush" Lactated 2016-04 No 1,000 mL, [place] latasha Ringers IV 05-03 Rate: 100 l 1,000 mL 14:48: ml/hr, [place] 00 Infuse over: 10 hr, Route: IV, Dosing Weight 82.727 kg, Total Volume: 1,000, Start date: 03/03/17 8:48:00 [employer], Duration: 30 day, Stop date: 04/02/17 8:47:00 [employer], 1.93, m2 Oxytocin 2016-04 No 30 unit, Memor ia 05-03 500 mL, l 14:48: Rate: 42 Lc 00 ml/hr, Infuse over: 11.9 hr, Dosing Weight 82.727, kg, Route: IV, Total Volume: 500 mL, Start date: 03/03/17 8:48:00 [employer], Duration: 2 day, Stop date: 03/05/17 8:47:00 [employer], Replace Every: 11.9 hr Ondansetron 2016-04 No Notes: Chen[place] latasha 05-03 (Same as: l 14:48: Zofran) [place] 00 MEDICATION WASTE Product Size: 4 mg Product Wasted: ___ mg Acetaminoph 2016-04 No Notes: Do M emoria en 325 MG / 05-03 not exceed l Hydrocodone 14:48: 4gm/day of [place] Bitartrate 00 acetaminop 10 MG Oral hen. (Same Tablet as: [place] 325/10) Acetaminoph 2016-04 No Notes: Chen[place] latasha en 325 MG / 05-03 (Same as: l Hydrocodone 14:48: [place] Marguerite nn Bitartrate 00 325/5) Do 5 MG Oral not exceed Tablet 4gm/day of acetaminop hen. zolpidem 2016-04 No Notes: Memoria 05-03 (Same As: l 14:48: Ambien) [place] 00 Methylergon 2016-04 No Notes: [place] latasha ovine 05-03 (Same l 14:48: as:Metherg Lc 00 ine) lanolin 2016-04 No Notes: [place]oria topical 05-03 (Same l 14:48: as:Lanolin Lc 00 ) Benzocaine 2016-04 No Notes: Memor ia 200 MG/ML 05-03 (Same As: l Topical 14:48: Dermoplast Herm aniceto [place] 00 ) WASTE: [Dermoplast Aerosol - ] Return to Pharmacy FOR EXTERNAL USE ONLY Docusate 2016-04 No Notes: Memoria 05-03 (Same as: l 14:48: Colace) [place] 00 (Do Not Crush) Bisacodyl 2016-04 No Notes: Memori a 05-03 (Same As: l 14:48: Dulcolax, [place] 00 Correctol) (Do Not Crush) "Do Not Crush" Lactated 2016-04 No 1,000 mL, Chencho latasha Ringers IV 05-03 Rate: 100 l 1,000 mL 14:48: ml/hr, [place] 00 Infuse over: 10 hr, Route: IV, Dosing Weight 82.727 kg, Total Volume: 1,000, Start date: 03/03/17 8:48:00 [employer], Duration: 30 day, Stop date: 04/02/17 8:47:00 [employer], 1.93, m2 Oxytocin 2016-04 No 30 unit, Memor ia 05-03 500 mL, l 14:48: Rate: 42 [place] 00 ml/hr, Infuse over: 11.9 hr, Dosing Weight 82.727, kg, Route: IV, Total Volume: 500 mL, Start date: 03/03/17 8:48:00 [employer], Duration: 2 day, Stop date: 03/05/17 8:47:00 [employer], Replace Every: 11.9 hr Ondansetron 2016-04 No Notes: Chencho latasha 05-03 (Same as: l 14:48: Zofran) [place] 00 MEDICATION WASTE Product Size: 4 mg Product Wasted: ___ mg Acetaminoph 2016-04 No Notes: Do M emoria en 325 MG / 05-03 not exceed l Hydrocodone 14:48: 4gm/day of [place] Bitartrate 00 acetaminop 10 MG Oral hen. (Same Tablet as: [place] 325/10) Acetaminoph 2016-04 No Notes: Chencho latasha en 325 MG / 05-03 (Same as: l Hydrocodone 14:48: [place] Marguerite nn Bitartrate 00 325/5) Do 5 MG Oral not exceed Tablet 4gm/day of acetaminop hen. zolpidem 2016-04 No Notes: Memoria 05-03 (Same As: l 14:48: Ambien) [place] 00 Methylergon 2016-04 No Notes: Chencho latasha ovine 05-03 (Same l 14:48: as:Metherg L[place] ine) lanolin 2016-04 No Notes: Memoria topical 05-03 (Same l 14:48: as:Lanolin Lc ) Benzocaine 2016-04 No Notes: Memor ia 200 MG/ML 05-03 (Same As: l Topical 14:48: Dermoplast Herm aniceto [place] 00 ) WASTE: [Dermoplast Aerosol - ] Return to Pharmacy FOR EXTERNAL USE ONLY Docusate 2016-04 No Notes: Memoria 05-03 (Same as: l 14:48: Colace) [place] (Do Not Crush) Bisacodyl 2016-04 No Notes: Memori a 05-03 (Same As: l 14:48: Dulcolax, [place] 00 Correctol) (Do Not Crush) "Do Not Crush" Lactated 2016-04 No 1,000 mL, Chencho latasha Ringers IV 05-03 Rate: 100 l 1,000 mL 14:48: ml/hr, [place] 00 Infuse over: 10 hr, Route: IV, Dosing Weight 82.727 kg, Total Volume: 1,000, Start date: 03/03/17 8:48:00 [employer], Duration: 30 day, Stop date: 04/02/17 8:47:00 [employer], 1.93, m2 Oxytocin 2016-04 No 30 unit, Memor ia 1-22 500 mL, l 14:48: Rate: 42 [place] 00 ml/hr, Infuse over: 11.9 hr, Dosing Weight 82.727, kg, Route: IV, Total Volume: 500 mL, Start date: 03/03/17 8:48:00 [employer], Duration: 2 day, Stop date: 03/05/17 8:47:00 [employer], Replace Every: 11.9 hr Ondansetron 2016-04 No Notes: Chencho latasha -22 (Same as: l 14:48: Zofran) [place] 00 MEDICATION WASTE Product Size: 4 mg [...] as Garamycin) Ofirmev 2016-04 No Notes: Memoria -22 Infuse l 01:52: over 15 Lc 00 minutes Do not exceed 4gm/day of acetaminop hen MEDICATION WASTE Product Size: 1000 mg Product Wasted: ___ mg Ofirmev 2016-04 No Notes: Memoria -22 Infuse l 01:52: over 15 [place] 00 minutes Do not exceed 4gm/day of acetaminop hen MEDICATION WASTE Product Size: 1000 mg Product Wasted: ___ mg Ofirmev 2016-04 No Notes: Memoria -22 Infuse l 01:52: over 15 [place] 00 minutes Do not exceed 4gm/day of acetaminop hen MEDICATION WASTE Product Size: 1000 mg Product Wasted: ___ mg Ofirmev 2016-04 No Notes: Memoria 05-03 Infuse l 01:52: over 15 [place] 00 minutes Do not exceed 4gm/day of [...] ia 05-03 (Same as: l 01:00: Principen) [place] 00 MEDICATION WASTE Product Size: 2000 mg Product Wasted: ___ mg Gentamicin 2016-04 No Notes: Memor ia 05-03 TIME l 01:00: CRITICAL [place] 00 MEDICATION (Same as Garamycin) Ampicillin 2016-04 No Notes: Memor ia 05-03 (Same as: l 01:00: Principen) [place] 00 MEDICATION WASTE Product Size: 2000 mg Product Wasted: ___ mg Gentamicin 2016-04 No Notes: Memor ia 05-03 TIME l 01:00: CRITICAL [place] 00 MEDICATION (Same as Garamycin) Ampicillin 2016-04 No Notes: Memor ia 05-03 (Same as: l 01:00: [place]) [place] 00 MEDICATION WASTE Product Size: 2000 mg Product Wasted: ___ mg Gentamicin 2016-04 No Notes: Memor ia 05-03 TIME l 01:00: CRITICAL [place] 00 MEDICATION (Same as Garamycin) Ampicillin 2016-04 No Notes: Memor ia 05-03 (Same as: l 01:00: Principen) [place] 00 MEDICATION WASTE Product Size: 2000 mg Product Wasted: ___ mg Gentamicin 2016-04 No Notes: Memor ia 05-03 TIME l 01:00: CRITICAL [place] 00 MEDICATION (Same as Garamycin) Ampicillin 2016-04 No Notes: Memor ia 05-03 (Same as: l 01:00: [place]) MEDICATION WASTE Product Size: 2000 mg Product Wasted: ___ mg Ofirmev 2016-04 No Notes: Memoria 05-03 Infuse l 00:34: over 15 [place] 00 minutes Do not exceed 4gm/day of acetaminop hen MEDICATION WASTE Product Size: 1000 mg Product Wasted: ___ mg Ofirmev 2016-04 No Notes: Memoria 05-03 Infuse l 00:34: over 15 [place] 00 minutes Do not exceed 4gm/day of acetaminop hen MEDICATION WASTE Product Size: 1000 mg Product Wasted: ___ mg Ofirmev 2016-04 No Notes: Memoria 05-03 Infuse l 00:34: over 15 [place] 00 minutes Do not exceed 4gm/day of acetaminop hen MEDICATION WASTE Product Size: 1000 mg Product Wasted: ___ mg Ofirmev 2016-04 No Notes: Memoria 05-03 Infuse l 00:34: over 15 [place] 00 minutes Do not exceed 4gm/day of acetaminop hen MEDICATION WASTE Product Size: 1000 mg Product Wasted: ___ mg Ofirmev 2016-04 No Notes: Memoria 05-03 Infuse l 00:34: over 15 [place] 00 minutes Do not [...] ia 05-02 (Same As: l 10:00: Hemabate) [place] 00 Methylergon 2016-04 No Notes: Chencho latasha ovine 05-02 (Same l 10:00: as:Metherg L[place] 00 ine) Misoprostol 2016-04 No Notes: Chencho latasha - (Same l 10:00: as:Cytotec [place] 00 ) Take with food Famotidine 2016-04 No Notes: Memor ia 1-21 (Same as: l 10:00: Pepcid) [place] 00 Can be dilute in 5-10cc NS [...] 1-21 (Same As: l 10:00: Hemabate) Lc Methylergon 2016-04 No Notes: Chencho latasha ovine 1-21 (Same l 10:00: as:Metherg [place] 00 ine) Misoprostol 2016-04 No Notes: Chencho latasha 1-21 (Same l 10:00: as:Cytotec [place] 00 ) Take with food Famotidine 2016-04 No Notes: Memor ia 1-21 (Same as: l 10:00: Pepcid) [place] 00 Can be dilute in 5-10cc NS [...] ia 1-21 (Same As: l 10:00: Hemabate) [place] 00 Methylergon 2016-04 No Notes: Chencho latasha ovine 1-21 (Same l 10:00: as:Metherg L[place] 00 ine) Misoprostol 2016-04 No Notes: Chencho latasha 1-21 (Same l 10:00: as:Cytotec L[place] 00 ) Take with food Famotidine 2016-04 No Notes: Memor ia 1-21 (Same as: l 10:00: Pepcid) [place] 00 Can be dilute in 5-10cc NS [...] ia 1-21 (Same As: l 10:00: Hemabate) Methylergon 2016-04 No Notes: Chencho latasha ovine 1-21 (Same l 10:00: as:Metherg L[place] 00 ine) Misoprostol 2016-04 No Notes: Chencho latasha 1-21 (Same l 10:00: as:Cytotec Lc 00 ) Take with food Famotidine 2016-04 No Notes: Memor ia 1-21 (Same as: l 10:00: Pepcid) [place] 00 Can be dilute in 5-10cc NS [...] ia 1-21 (Same As: l 10:00: Hemabate) Methylergon 2016-04 No Notes: Chencho latasha ovine 1-21 (Same l 10:00: as:Metherg [place] ine) Misoprostol 2016-04 No Notes: Chencho latasha 1-21 (Same l 10:00: as:Cytotec [place] 00 ) Take with food Famotidine 2016-04 No Notes: Memor ia 1-21 (Same as: l 10:00: Pepcid) [place] 00 Can be dilute in 5-10cc NS IVP: Slow IV push over at least 2 minutes. Terbutaline 2016-04 No Notes: Chencho latasha 1-21 DO NOT l 09:20: USE IN Lc 00 [employer] (Same As: Brethine) Oxytocin 2016-04 No 30 unit, Memor ia 1-21 500 mL, l 09:20: Rate: [place] 00 Titrate, Dosing Weight 82.727, kg, Route: IV, Total Volume: 500 mL, Start date: 03/02/17 3:20:00 [employer], Duration: 2 day, Stop date: 03/04/17 3:19:00 [employer], Replace Every: 24 hr Lidocaine 2016-04 No Notes: Memori a Hydrochlori 05-02 (Same as: l de 10 MG/ML 09:20: Xylocaine) [place] Injectable 00 Solution Lactated 2016-04 No 1,000 mL, Chencho latasha Ringers IV 05-02 Rate: 125 l 1,000 mL 09:20: ml/hr, [place] 00 Infuse over: 8 hr, Route: IV, Dosing Weight 82.727 kg, Total Volume: 1,000, Start date: 03/02/17 3:20:00 [employer], Duration: 30 day, Stop date: 04/01/17 3:19:00 [employer], 1.93, m2 Calcium 2016-04 No 1,000 mL, Memor ia Chloride 05-02 1,000 l 0.0014 09:20: ml/hr, MEQ/ML / 00 Infuse Potassium Over: 1 Chloride hr, Route: 0.004 IV, 1,000, MEQ/ML / Drug form: Sodium INJ, ONCE, Chloride Dosing 0.103 Weight MEQ/ML / 82.727 kg, Sodium Start Lactate date: 0.028 03/02/17 MEQ/ML 3:20:00 Injectable [employer], Stop Solution date: 03/02/17 3:20:00 [employer], Bolus for regional anesthesia per unit protocol Ondansetron 2016-04 No Notes: Chencho latasha 05-02 (Same as: l 09:20: Zofran) [place] 00 MEDICATION WASTE Product Size: 4 mg Product Wasted: ___ mg Acetaminoph 2016-04 No Notes: Chencho latasha en 325 MG / 05-02 (Same as: l Hydrocodone 09:20: [place] Marguerite nn Bitartrate 00 325/5) Do 5 MG Oral not exceed Tablet 4gm/day of acetaminop hen. Butorphanol 2016-04 No Notes: Chencho latasha 05-02 (Same As: l 09:20: Stadol) [place] 00 MEDICATION WASTE Product Size: 2 mg Product Wasted: ___ mg Ibuprofen 2016-04 No Notes: Memori a 05-02 (Same as: l 09:20: Motrin) [place] 00 "Do Not Crush" Take with food. Terbutaline 2016-04 No Notes: Chencho latasha 05-02 DO NOT l 09:20: USE IN Lc 00 [employer] (Same As: Yarelis) Oxytocin 2016-04 No 30 unit, Memor ia 05-02 500 mL, l 09:20: Rate: [place] 00 Titrate, Dosing Weight 82.727, kg, Route: IV, Total Volume: 500 mL, Start date: 03/02/17 3:20:00 [employer], Duration: 2 day, Stop date: 03/04/17 3:19:00 [employer], Replace Every: 24 hr Lidocaine 2016-04 No Notes: Memori a Hydrochlori 05-02 (Same as: l de 10 MG/ML 09:20: Xylocaine) [place] Injectable 00 Solution Lactated 2016-04 No 1,000 mL, Chencho latasha Ringers IV 05-02 Rate: 125 l 1,000 mL 09:20: ml/hr, Infuse over: 8 hr, Route: IV, Dosing Weight 82.727 kg, Total Volume: 1,000, Start date: 03/02/17 3:20:00 [employer], Duration: 30 day, Stop date: 04/01/17 3:19:00 [employer], 1.93, m2 Calcium 2016-04 No 1,000 mL, Memor ia Chloride 05-02 1,000 l 0.0014 09:20: ml/hr, MEQ/ML / 00 Infuse Potassium Over: 1 Chloride hr, Route: 0.004 IV, 1,000, MEQ/ML / Drug form: Sodium INJ, ONCE, Chloride Dosing 0.103 Weight MEQ/ML / 82.727 kg, Sodium Start Lactate date: 0.028 03/02/17 MEQ/ML 3:20:00 Injectable [employer], Stop Solution date: 03/02/17 3:20:00 [employer], Bolus for regional anesthesia per unit protocol Ondansetron 2016-04 No Notes: Chencho latasha 05-02 (Same as: l 09:20: Zofran) [place] 00 MEDICATION WASTE Product Size: 4 mg Product Wasted: ___ mg Acetaminoph 2016-04 No Notes: Chencho latasha en 325 MG / 05-02 (Same as: l Hydrocodone 09:20: [place] Marguerite nn Bitartrate 00 325/5) Do 5 MG Oral not exceed Tablet 4gm/day of acetaminop hen. Butorphanol 2016-04 No Notes: Chencho latasha 05-02 (Same As: l 09:20: Stadol) [place] 00 MEDICATION WASTE Product Size: 2 mg Product Wasted: ___ mg Ibuprofen 2016-04 No Notes: Memori a 05-02 (Same as: l 09:20: Motrin) "Do Not Crush" Take with food. Terbutaline 2016-04 No Notes: Chencho latasha 05-02 DO NOT l 09:20: USE IN [place] 00 [employer] (Same As: Yarelis) Oxytocin 2016-04 No 30 unit, Memor ia 05-02 500 mL, l 09:20: Rate: [place] 00 Titrate, Dosing Weight 82.727, kg, Route: IV, Total Volume: 500 mL, Start date: 03/02/17 3:20:00 [employer], Duration: 2 day, Stop date: 03/04/17 3:19:00 [employer], Replace Every: 24 hr Lidocaine 2016-04 No Notes: Memori a Hydrochlori 05-02 (Same as: l de 10 MG/ML 09:20: Xylocaine) [place] Injectable 00 Solution Lactated 2016-04 No 1,000 mL, Chencho latasha Ringers IV 05-02 Rate: 125 l 1,000 mL 09:20: ml/hr, [place] 00 Infuse over: 8 hr, Route: IV, Dosing Weight 82.727 kg, Total Volume: 1,000, Start date: 03/02/17 3:20:00 [employer], Duration: 30 day, Stop date: 04/01/17 3:19:00 [employer], 1.93, m2 Calcium 2016-04 No 1,000 mL, Memor ia Chloride 05-02 1,000 l 0.0014 09:20: ml/hr, [place] MEQ/ML / 00 Infuse Potassium Over: 1 Chloride hr, Route: 0.004 IV, 1,000, MEQ/ML / Drug form: Sodium INJ, ONCE, Chloride Dosing 0.103 Weight MEQ/ML / 82.727 kg, Sodium Start Lactate date: 0.028 03/02/17 MEQ/ML 3:20:00 Injectable [employer], Stop Solution date: 03/02/17 3:20:00 [employer], Bolus for regional anesthesia per unit protocol Ondansetron 2016-04 No Notes: Chencho latasha 05-02 (Same as: l 09:20: Zofran) [place] 00 MEDICATION WASTE Product Size: 4 mg Product Wasted: ___ mg Acetaminoph 2016-04 No Notes: Chencho latasha en 325 MG / 05-02 (Same as: l Hydrocodone 09:20: [place] Marguerite nn Bitartrate 00 325/5) Do 5 MG Oral not exceed Tablet 4gm/day of acetaminop hen. Butorphanol 2016-04 No Notes: Chencho latasha 05-02 (Same As: l 09:20: Stadol) [place] 00 MEDICATION WASTE Product Size: 2 mg Product Wasted: ___ mg Ibuprofen 2016-04 No Notes: Memori a 05-02 (Same as: l 09:20: Motrin) [place] 00 "Do Not Crush" Take with food. Terbutaline 2016-04 No Notes: Chencho latasha 05-02 DO NOT l 09:20: USE IN [place] 00 [employer] (Same As: Yarelis) Oxytocin 2016-04 No 30 unit, Memor ia 05-02 500 mL, l 09:20: Rate: [place] 00 Titrate, Dosing Weight 82.727, kg, Route: IV, Total Volume: 500 mL, Start date: 03/02/17 3:20:00 [employer], Duration: 2 day, Stop date: 03/04/17 3:19:00 [employer], Replace Every: 24 hr Lidocaine 2016-04 No Notes: Memori a Hydrochlori 05-02 (Same as: l de 10 MG/ML 09:20: Xylocaine) [place] Injectable 00 Solution Lactated 2016-04 No 1,000 mL, Chencho latasha Ringers IV 05-02 Rate: 125 l 1,000 mL 09:20: ml/hr, [place] 00 Infuse over: 8 hr, Route: IV, Dosing Weight 82.727 kg, Total Volume: 1,000, Start date: 03/02/17 3:20:00 [employer], Duration: 30 day, Stop date: 04/01/17 3:19:00 [employer], 1.93, m2 Calcium 2016-04 No 1,000 mL, Memor ia Chloride -21 1,000 l 0.0014 09:20: ml/hr, Lc MEQ/ML / 00 Infuse Potassium Over: 1 Chloride hr, Route: 0.004 IV, 1,000, MEQ/ML / Drug form: Sodium INJ, ONCE, Chloride Dosing 0.103 Weight MEQ/ML / 82.727 kg, Sodium Start Lactate date: 0.028 03/02/17 MEQ/ML 3:20:00 Injectable [employer], Stop Solution date: 03/02/17 3:20:00 [employer], Bolus for regional anesthesia per unit protocol Ondansetron 2016-04 No Notes: Chencho latasha - (Same as: l 09:20: Zofran) [place] 00 MEDICATION WASTE Product Size: 4 mg Product Wasted: ___ mg Acetaminoph 2016-04 No Notes: Chencho latasha en 325 MG / 05-02 (Same as: l Hydrocodone 09:20: [place] Marguerite nn Bitartrate 00 325/5) Do 5 MG Oral not exceed Tablet 4gm/day of acetaminop hen. Butorphanol 2016-04 No Notes: Chencho latasha -21 (Same As: l 09:20: Stadol) [place] 00 MEDICATION WASTE Product Size: 2 mg Product Wasted: ___ mg Ibuprofen 2016-04 No Notes: Memori a 05-02 (Same as: l 09:20: Motrin) [place] 00 "Do Not Crush" Take with food. Terbutaline 2016-04 No Notes: Chencho latasha - DO NOT l 09:20: USE IN Lc [employer] (Same As: Brethine) Oxytocin 2016-04 No 30 unit, Memor ia -21 500 mL, l 09:20: Rate: [place] 00 Titrate, Dosing Weight 82.727, kg, Route: IV, Total Volume: 500 mL, Start date: 03/02/17 3:20:00 [employer], Duration: 2 day, Stop date: 03/04/17 3:19:00 [employer], Replace Every: 24 hr Lidocaine 2016-04 No Notes: Memori a Hydrochlori 05-02 (Same as: l de 10 MG/ML 09:20: Xylocaine) [place] Injectable 00 Solution Lactated 2016-04 No 1,000 mL, Chencho latasha Ringers IV 05-02 Rate: 125 l 1,000 mL 09:20: ml/hr, [place] 00 Infuse over: 8 hr, Route: IV, Dosing Weight 82.727 kg, Total Volume: 1,000, Start date: 03/02/17 3:20:00 [employer], Duration: 30 day, Stop date: 04/01/17 3:19:00 [employer], 1.93, m2 Calcium 2016-04 No 1,000 mL, Memor ia Chloride 05-02 1,000 l 0.0014 09:20: ml/hr, Lc MEQ/ML / 00 Infuse Potassium Over: 1 Chloride hr, Route: 0.004 IV, 1,000, MEQ/ML / Drug form: Sodium INJ, ONCE, Chloride Dosing 0.103 Weight MEQ/ML / 82.727 kg, Sodium Start Lactate date: 0.028 03/02/17 MEQ/ML 3:20:00 Injectable [employer], Stop Solution date: 03/02/17 3:20:00 [employer], Bolus for regional anesthesia per unit protocol Ondansetron 2016-04 No Notes: Chencho latasha 05-02 (Same as: l 09:20: Zofran) [place] 00 MEDICATION WASTE Product Size: 4 mg Product Wasted: ___ mg Acetaminoph 2016-04 No Notes: Chencho latasha en 325 MG / 05-02 (Same as: l Hydrocodone 09:20: [place] Marguerite nn Bitartrate 00 325/5) Do 5 MG Oral not exceed Tablet 4gm/day of acetaminop hen. Butorphanol 2016-04 No Notes: Chencho latasha 05-02 (Same As: l 09:20: Stadol) [place] 00 MEDICATION WASTE Product Size: 2 mg Product Wasted: ___ mg Ibuprofen 2016-04 No Notes: Memori a 05-02 (Same as: l 09:20: Motrin) [place] 00 "Do Not Crush" Take with food. Claritin Claritin Yes Nadeem 1 tablet C melanie [facility] Claritin 10 Claritin 10 No 1{table QD Claritin MG MG t} 10 MG Claritin 10 Claritin 10 No 1{table QD Claritin MG MG t} 10 MG Claritin 10 Claritin 10 No 1{table QD Claritin MG MG t} 10 MG Claritin 10 Claritin 10 No 1{table QD Claritin MG MG t} 10 MG Claritin 10 Claritin 10 No 1{table QD MG MG t} Claritin 10 Claritin 10 No 1{table QD Claritin MG MG t} 10 MG Claritin 10 Claritin 10 No 1{table QD MG MG t} Claritin 10 Claritin 10 No 1{table QD MG MG t} Claritin 10 Claritin 10 No 1{table QD Claritin MG MG t} 10 MG Claritin 10 Claritin 10 No 1{table QD Claritin MG MG t} 10 MG Claritin 10 Claritin 10 No 1{table QD Claritin MG MG t} 10 MG Claritin 10 Claritin 10 No 1{table QD Claritin MG MG t} 10 MG Claritin 10 Claritin 10 No 1{table QD Claritin MG MG t} 10 MG Claritin 10 Claritin 10 No 1{table QD Claritin MG MG t} 10 MG Claritin 10 Claritin 10 No 1{table QD Claritin MG MG t} 10 MG Claritin 10 Claritin 10 No 1{table QD Claritin MG MG t} 10 MG Immunizations Ordered Immunization Filled Immunization Date Status Commen ts Source Name Name Fabiana Jung 2018-09-19 Completed [facility] (Triamcinolone[facility] (Triamcinolone) 11:42:00 [facility] Fabiana Jung 2018-09-19 Completed [facility] (Triamcinolone) (Triamcinolone) 11:42:00 [facility] Fabiana Jung 2018-09-19 Completed [facility] (Triamcinolone) (Triamcinolone) 11:42:00 [facility] Fabiana Jung 2018-09-19 Completed [facility] (Triamcinolone) (Triamcinolone) 11:42:00 [facility] Fabiana Jung 2018-09-19 Completed [facility] - (Triamcinolone) (Triamcinolone) 11:42:00 [facility] Fabiana Del Angelalog 2018-09-19 Completed [facility] - (Triamcinolone) (Triamcinolone) 11:42:00 [facility] Fabiana Jung 2018-09-19 Completed [facility] (Triamcinolone) (Triamcinolone) 11:42:00 [facility] 2018-09-19 Completed [facility] - (Triamcinolone) (Triamcinolone) 11:42:00 [facility] Fabiana 2018-09-19 Completed [facility] - (Triamcinolone) (Triamcinolone) 11:42:00 [facility] influenza virus 2017-03-05 Completed [facility], inactivated 19:37:00 [facility] aniceto influenza virus 2017-03-05 Completed [facility] vaccine, inactivated 19:37:00 [facility] aniceto influenza virus 2017-03-05 Completed [facility] vaccine, inactivated 19:37:00 Herm aniceto influenza virus 2017-03-05 Completed [facility] vaccine, inactivated 19:37:00 [facility] aniceto influenza virus 2017-03-05 Completed [facility] vaccine, inactivated 19:37:00 Herm aniceto Vital Signs Vital Name Observation Time Observation Value Comments Source Systolic blood 2022-02-12 23:16:00 131 mm[Hg] Univer sity of pressure [facility] Diastolic blood 2022-02-12 23:16:00 73 mm[Hg] Unive rsity of pressure [facility] Heart rate 2022-02-12 23:16:00 90 /min [facility] Body temperature 2022-02-12 23:16:00 37.06 Nicolasa [facility] 2022-02-12 23:16:00 20 /min [facility] Body height 2022-02-12 23:16:00 157.5 cm [facility] Body weight 2022-02-12 23:16:00 64.411 kg [facility] BMI 2022-02-12 23:16:00 25.97 kg/m2 [facility] Oxygen saturation in 2022-02-12 23:16:00 100 /min [facility] blood by [facility] Pulse oximetry Branch Systolic blood 2021-12-27 15:29:00 121 mm[Hg] Univer sity of pressure [facility] Diastolic blood 2021-12-27 15:29:00 82 mm[Hg] Unive rsity of pressure [facility] Heart rate 2021-12-27 15:29:00 92 /min [facility] Body temperature 2021-12-27 15:29:00 37.39 Nicolasa [facility] ersity of [facility] Respiratory rate 2021-12-27 15:29:00 16 /min [facility] height 2021-12-27 15:29:00 157.5 cm [facility]i ty of [facility] Body weight 2021-12-27 15:29:00 65.046 kg Universi ty [facility] BMI 2021-12-27 15:29:00 26.23 [facility] in 2021-12-27 15:29:00 99 /min [facility] Arterial blood by [facility] Pulse oximetry Branch height 2020-07-31 16:40:00 63 [in_i] [facility] weight 2020-07-31 16:40:00 145 [lb_av] [facility] temperature 2020-07-31 16:40:00 97.5 [degF] [facility] bmi 2020-07-31 16:40:00 25.68 kg/m2 [facility] height 2020-07-03 13:50:00 63 [in_i] [facility] weight 2020-07-03 13:50:00 145 [lb_av] [facility] temperature 2020-07-03 13:50:00 98 [degF] [facility] bmi 2020-07-03 13:50:00 25.68 kg/m2 [facility] blood pressure 2020-07-03 13:50:00 125 mm[Hg] [facility] blood pressure 2020-07-03 13:50:00 70 mm[Hg] [facility] diastolic [facility] height 2020-06-12 13:10:00 63 [in_i] [facility] weight 2020-06-12 13:10:00 143.7 [lb_av] [facility] temperature 2020-06-12 13:10:00 98.1 [degF] [facility] bmi 2020-06-12 13:10:00 25.45 kg/m2 [facility] oximetry 2020-06-12 13:10:00 98 % [facility] respiratory rate 2020-06-12 13:10:00 16 /min [facility] blood pressure 2020-06-12 13:10:00 129 mm[Hg] Common [facility] - systolic [facility] blood pressure 2020-06-12 13:10:00 74 mm[Hg] [facility] - diastolic [facility] height 2020-05-14 13:40:00 63 [in_i] [facility] weight 2020-05-14 13:40:00 139.5 [lb_av] [facility] temperature 2020-05-14 13:40:00 98.2 [degF] [facility] bmi 2020-05-14 13:40:00 24.71 kg/m2 [facility] oximetry 2020-05-14 13:40:00 100 % [facility] respiratory rate 2020-05-14 13:40:00 18 /min [facility] on [facility] blood pressure 2020-05-14 13:40:00 125 mm[Hg] Common [facility] - systolic [facility] blood pressure 2020-05-14 13:40:00 71 mm[Hg] [facility] - diastolic [facility] Systolic (mm Hg) 2017-03-05 18:30:00 Chencho britni Platt Diastolic (mm Hg) 2017-03-05 18:30:00 Mem orial Lc Respitory Rate 2017-03-05 18:30:00 Memori al [place] Temperature Oral (F) 2017-03-05 18:30:00 98.1 F [facility] [place] Heart Rate 2017-03-05 18:30:00 [facility] Systolic (mm Hg) 2017-03-05 14:34:00 Chencho rial Lc Diastolic (mm Hg) 2017-03-05 14:34:00 Mem orial Lc Respitory Rate 2017-03-05 14:34:00 Memori al Lc Heart Rate 2017-03-05 14:34:00 [facility] [facility] Temperature Oral (F) 2017-03-05 14:34:00 98.1 [facility] Heart Rate 2017-03-05 10:02:00 [facility] Temperature Oral (F) 2017-03-05 10:02:00 98.0 F [facility] Systolic (mm Hg) 2017-03-05 10:02:00 [facility] Diastolic (mm Hg) 2017-03-05 10:02:00 [facility] [place] Respitory Rate 2017-03-05 10:02:00 [facility] Height 2017-03-02 10:08:00 157.48 cm [facility] BMI Calculated 2017-03-02 10:08:00 [facility] [place] Weight 2017-03-02 10:08:00 [facility] BMI Calculated 2017-03-02 08:32:00 [facility] [place] Height 2017-03-02 08:32:00 157.48 cm [facility] Weight 2017-03-02 08:32:00 [facility] Procedures Procedure Date / Time Performed Performing Clinician Sourc e POCT MOLECULAR STREP 2022-02-12 23:22:00 Unknown, Attending [facility] XR CHEST 2 VW 2021-12-27 16:26:00 Brenda Todd [place] o f [facility] POCT MOLECULAR FLU 2021-12-27 15:56:00 Carlito Velasco [facility] Plan of Care Planned Activity Planned Date Details Comments Source Future Scheduled 2022-07-14 [facility] 02:24:27 screening (procedure) [code = 448817363] Future Scheduled 2022-07-14 [facility] Test 02:24:27 malignant neoplasm of cervix (procedure) [code = 498248070] Future Scheduled 2022-07-14 COVID-19 VACCINE (4 [facility] Test 02:24:27 - Booster for Moderna series) [code = COVID-19 VACCINE (4 - Booster for Moderna series)] Future Scheduled 2022-07-14 [facility]FLUENZA [facility]ACCINE [facility] 02:24:27 [code = INFLUENZA VACCINE] Encounters Start End Encounter Admission Attending Care Care Encounter Source Date/Time Date/Time Type Type Clinicians Facility Department ID 2021-05-07 Outpatient Corrigan, STLMLC [facility] [id number] Common 12:54:02 Nadeem [id number] [facility] 2021-05-07 Outpatient Corrigan, STLMLC [facility] [id number] Common 12:44:16 Nadeem 25375 [facility] 2021-05-07 Outpatient Corrigan, STLC [facility] [id number] Common 12:43:24 Nadeem [id number] [facility] 2021-05-07 Outpatient Corrigan, STLMLC [facility] [id number] Common 12:35:49 Nadeem 04853 [facility] 2021-05-07 Outpatient Corrigan, STLC [facility] [id number] Common 12:35:15 Nadeem [id number] [facility] 2021-05-07 Outpatient Corrigan, STLC [facility] [id number] Common 12:34:46 Nadeem [id number] [facility] 2021-05-07 Outpatient Corrigan, STLC [facility] [id number] Common 12:27:11 Nadeem [id number] [facility] 2021-05-07 Outpatient Corrigan, STLC [facility] [id number] Common 11:13:25 Nadeem [id number] [facility] 2022-02-12 2022-02-12 Outpatient R ANNE CEE [facility] [id number] Univers 17:20:00 18:37:52 AMY bar [facility] 2022-02-12 2022-02-12 Urgent Amy Cee [facility] 1.2.840 .114 [id number] Univers 17:20:00 18:37:52 [facility] [id number] ity of [place] 4.2.7.2.686 [place] as BENNY?BLEA [phone] [facility] [address] MEDICAL OFFICE [facility] 2021-12-27 2021-12-27 [facility] 1.2.840.114 [id number] Univers 10:50:31 23:59:00 [facility] 350.1.13.10 ity of [place] 4.2.7.2.686 [place] as BENNY?BLEA [phone] [facility] [address] [facility] 2021-12-27 2021-12-27 Outpatient R PEREZ [facility] [id number] Univers 10:50:31 10:50:31 [facility] 2021-12-27 2021-12-27 Outpatient Delmy VELASCO [facility] [id number] Univers 10:20:00 10:35:39 [facility] 2021-12-27 2021-12-27 [facility] 1.2.840.114 [id number] Univers 10:20:00 10:35:39 Care Green, [facility] 350.1.13.10 ity of [place] 4.2.7.2.686 [place] as BENNY?BLEA [phone] [facility] [address] [facility] 2021-12-27 2021-12-27 Orders Doctor DE LEÓN 1.2.840.114 [id number] Univers 00:00:00 00:00:00 Only Unassigned, YEYO 350.1.13.10 ity of [place] [facility] 4.2.7.2.686 [place] as [phone] [address] 2021-09-09 2021-09-09 Outpatient Rufino [facility] [address] [place] 02:00:00 02:00:00 [id number] [facility] 2021-06-17 2021-06-17 Outpatient TRINA RANDALL [facility] [id number] [place] 00:00:00 00:00:[address] 2021-06-02 2021-06-02 Outpatient ERGUN, [facility] [id number] [place] 00:00:00 00:00:00 IQRASESAR 662 Method i 2021-05-31 2021-05-31 Letter J Carlos, [facility] 1.2.840.114 [id number] Univers 00:00:00 00:00:00 (Out) Brad [facility] 350.1.13.10 i ty of [place] 4.2.7.2.686 [place] as BENNY?BLEA [phone] [address] MEDICAL OFFICE [facility] 2021-05-28 2021-05-28 Laboratory Only, Ang Db Test [facility] 1.2.8 40.114 [id number] Univers 16:00:00 16:15:00 Only Unknown, Attending HEALTH 350.1.13.10 ity of [place] 4.2.7.2.686 [place] as BENNY?BLEA [phone] [address] 2021-05-28 2021-05-28 Outpatient R ROD [facility] [id number] Univers 16:00:00 15:41:56 CARLITO [facility] 2021-05-28 2021-05-28 Outpatient R STACY, [facility] [id number] Univers 14:00:00 14:00:00 MAHESH [facility] 2021-05-19 2021-05-19 Outpatient R SUSU, [facility] [id number] Univers 16:00:00 16:00:00 ESTEFANI davidson o f [facility] 2021-05-13 2021-05-13 Outpatient TONIA TRINA [facility] [id number] [place] 00:00:00 00:00:00 839 Method i 2021-05-13 2021-05-13 Outpatient TRINA RANDALL [facility] [id number] [place] 00:00:00 00:00:00 107 Method i 2021-05-08 2021-05-08 Outpatient GC_SWHAWPRC PRIV PRIV [id number] [facility] 06:17:00 06:17:00 _Tresa [id number] Medica l 2021-04-15 2021-04-15 (WEB) STLMLC STLMLC [id number] Co mmon 00:00:00 00:00:00 [facility] 2021-04-15 2021-04-15 (WEB) STLMLC STLMLC [id number] Co mmon 00:00:00 00:00:00 [facility] 2021-04-09 2021-04-09 (WEB) STLMLC STLMLC [id number] Co mmon 00:00:00 00:00:00 [facility] 2021-04-09 2021-04-09 (WEB) STLMLC STLMLC [id number] Co mmon 00:00:00 00:00:00 [facility] 2021-03-31 2021-03-31 (WEB) STLMLC STLMLC [id number] Co mmon 00:00:00 00:00:00 [facility] 2021-03-14 2021-03-14 (TEL) STLMLC STLMLC [id number] Co mmon 00:00:00 00:00:00 [facility] 2021-03-13 2021-03-13 Outpatient _SWHAWPR PRIV PRIV [id number] [facility] 01:02:00 01:02:00 _Tresa [id number] Medica l 2021-02-21 2021-02-21 (TEL) STLMLC STLMLC [id number] Co mmon 00:00:00 00:00:00 [facility] 2020-12-21 2020-12-21 Telephone GENET Corona 1.2.299.884 [id number] Univers 00:00:00 00:00:00 Patient YEYO 350.1.13.10 it y of Does Not HOSPITAL 4[place]2.[place].2.[place] A [phone] [facility] amanda [address] 2020-12-21 2020-12-21 Telephone GENET Aguero2.872.091 [id number] Univers 00:00:00 00:00:00 Tracie D YEYO 350.1.13.10 i ty of HOSPITAL 4.2.7.2.686 [place] as [phone] Medi amanda [address] 2020-12-19 2020-12-19 Laboratory Only, Ang Db Test [facility] 1.2.8 40.114 [id number] Univers 14:04:44 14:19:44 Only Carlito [facility] 350.1.13.10 ity of [place] 4.2.7.2.686 [place] as Benny?Blea [phone] [address] Office [facility] 2020-12-19 2020-12-19 Outpatient R [facility] [id number] Univers 14:15:00 14:15:00 ity of [facility] 2020-12-19 2020-12-19 (TEL) STLC [facility] [id number] Co mmon 00:00:00 00:00:00 [facility] 2020-12-08 2020-12-08 Telephone GENET Aguero 1Swati2.368.375 [id number] Univers 00:00:00 00:00:00 Tracie ORONA 350.1.13.10 i ty of [facility] 4.2.7.2.686 [place] as [id number] [facility] [address] 2020-12-06 2020-12-06 Outpatient R ROD [facility] [id number] Univers 10:30:00 10:30:00 CARLITO ity of [facility] 2020-12-06 2020-12-06 Laboratory Only, Ang Db Test [facility] 1.2.8 40.114 [id number] Univers 10:05:23 10:15:23 Only Carlito [facility] 350.1.13.10 ity of [place] 4.2.7.2.686 [place] Benny?Blea [phone] [address] Office [facility] 2020-12-06 2020-12-06 Letter Doctor DE LEÓN 1.2.840.114 [id number] Univers 00:00:00 00:00:00 (Out) UnassYEYO cota 350.1.13.10 ity of [place] [facility] 4.2.7.2.686 [place] [phone] [facility] [address] 2020-12-06 2020-12-06 Letter Doctor DE LEÓN 1.2.840.114 [id number] Univers 00:00:00 00:00:00 (Out) Unassigned, YEYO 350.1.13.10 ity of [place] [facility]ITAL 4.2.7.2.686 [place] [phone] [facility] [address] 2020-12-06 2020-12-06 Orders Doctor GENET 1.2.840.114 [id number] Univers 00:00:00 00:00:00 Only Unassigned, YEYO 350.1.13.10 ity of [place] [facility]OSPITAL 4.2.7.2.686 [place] [phone] [facility] [address] 2020-07-31 2020-07-31 OFFICE STLMLC STLMLC [id number] Co mmon 00:00:00 00:00:00 VISIT EST Spir it PT LEVEL 3 [facility] 2020-07-08 2020-07-08 (TEL) STLMLC STLMLC [id number] Co mmon 00:00:00 00:00:00 [facility] 2020-07-03 2020-07-03 (TEL) STLMLC STLMLC [id number] Co mmon 00:00:00 00:00:00 [facility] 2020-07-03 2020-07-03 OFFICE STLMLC STLMLC [id number] Co mmon 00:00:00 00:00:00 VISIT Spirit ESTAB PT - CHI LEVEL 4 [facility] 2020-06-12 2020-06-12 PREV VISIT STLMLC STLMLC [id number] Common 00:00:00 00:00:00 EST AGE Spirit 18-39 - CHI [facility] 2020-05-21 2020-05-21 (TEL) STLMLC STLMLC [id number] Co mmon 00:00:00 00:00:00 [facility] 2020-05-14 2020-05-14 OFFICE STLMLC STLMLC [id number] Co mmon 00:00:00 00:00:00 VISIT EST Spir it PT LEVEL 3 [facility] 2020-05-08 2020-05-08 (TEL) STLMLC STLMLC [id number] Co mmon 00:00:00 00:00:00 [facility] 2019-06-26 2019-06-26 Outpatient [facility] [id number] Common 08:56:00 08:56:[address] [facility] 2019-06-22 2019-06-22 Outpatient [facility] [id number] Common 09:15:00 09:15:[address] [facility] 2017-03-02 2017-03-05 Inpatient [facility]Flavo [facility] [id number] [facility] 08:20:00 20:40:00 [place] 00 [facility] 2017-03-02 2017-03-05 Inpatient nullFlavo [facility] [id number] Mem[facility] 08:20:00 20:40:00 [facility] [place] 00 [facility] 2017-03-02 2017-03-05 Inpatient [facility]Flavo [facility] [id number] [facility] 08:20:00 20:40:00 [facility] [place] 00 [facility] 2017-03-02 2017-03-05 Outpatient Scott [facility] [id number] 02:20:00 14:40:00 Terri 00 [facility] 2017-03-02 2017-03-05 Outpatient Scott [facility] [id number] 02:20:00 14:40:00 Terri 00 [facility] 2016-10-16 2016-11-15 Recurring nullFlavo [facility] [id number] Memoria 18:20:00 04:59:00 r Lc 00 [facility] 2016-10-16 2016-11-15 Recurring nullFlavo [facility] [id number] Mem[facility] 18:20:00 04:59:00 r Lc 00 [facility] 2016-10-16 2016-11-15 Recurring nullFlavo [facility] [id number] Mem[facility] 18:20:00 04:59:00 [place] 00 [facility] 2016-10-16 2016-11-14 Outpatient Scott [facility] [id number] 13:20:00 23:59:00 [facility] 2016-11-14 Outpatient Scott [facility] [id number] 13:20:00 23:59:[address] [place] [address] Results Test Description Test Time Test Comments Results Result Comments Source POCT MOLECULAR STREP 2022-02-12 23:29:53 Test Item Value Reference Range Interpretation Comme nts POCT Molecular Strep (test code = 50596-9) Negative Negative Lab Interpretation (test code = 92546-5) Normal [facility] [id number] 16:07:40 Test Item Value Reference Range Interpretation Comments POCT Molecular FluA (test code = Negative Negative 79232-9) POCT Molecular FluB (test code = Negative Negative 75195-2) Lab Interpretation (test code = Normal 57156-7) [facility]2017-11-23 12:40:00 Test Item Value Reference Range Interpretation Comments Platelet (test code = Platelet) 192 133-450 [facility]JmljfitIEHXIZPKZN7891-78-08 12:40:00 Test Item Value Reference Range Interpretation Comments MPV (test code = MPV) 8.0 7.4-10.4 [facility] HospitalFbyhinmZNWVYSJVYM4194-25-31 12:40:00 Test Item Value Reference Range Interpretation Comments MCH (test code = MCH) 26.4 pg 27.0-31.0 [facility] HospitalXnnwwbbCFTZDXFGVI3803-13-28 12:40:00 Test Item Value Reference Range Interpretation Comments MCHC (test code = MCHC) 33.5 32.0-36.0 [facility] HospitalFfiabqaILPIDZWULG8610-25-02 12:40:00 Test Item Value Reference Range Interpretation Comments RDW (test code = RDW) 14.2 11.5-14.5 [facility] HospitalYzhtearVFSSVMQBRU5741-93-28 12:40:00 Test Item Value Reference Range Interpretation Comments Hct (test code = Hct) 32.2 36.0-48.0 [facility] HospitalTtxlpyxBDVHGGDHLG7759-66-44 12:40:00 Test Item Value Reference Range Interpretation Comments Hgb (test code = Hgb) 10.8 12.0-16.0 [facility] HospitalPalccroKVATRUMPZM6474-57-47 12:40:00 Test Item Value Reference Range Interpretation Comments MCV (test code = MCV) 78.9 80.0-98.0 [facility] HospitalNcaftfqISJTWCBSGD1712-37-83 12:40:00 Test Item Value Reference Range Interpretation Comments RBC (test code = RBC) 4.09 4.20-5.40 [facility] HospitalBfduevqJJIUECTHTO2242-34-16 12:40:00 Test Item Value Reference Range Interpretation Comments WBC (test code = WBC) 20.4 3.7-10.4 [facility] HospitalAaknzmwFATYGXBQOL1319-61-45 12:40:00 Test Item Value Reference Range Interpretation Comments Eosinophils (test code = 0.3 See_Comment [A utomated message] The Eosinophils) system which ge nerated this result tra nsmitted reference range : <=4.0. The reference r alana was not used to int erpret this result as normal/abnormal . [facility] HospitalGukjohpCXYBICRLND9502-32-18 12:40:00 Test Item Value Reference Range Interpretation Comments Monocytes (test code = Monocytes) 7.1 2.0-12.0 [facility] HospitalIkgcoscOGGNEMWUII4033-26-58 12:40:00 Test Item Value Reference Range Interpretation Comments Basophils (test code = 0.2 See_Comment [Aut omated message] The Basophils) system which ge nerated this result tra nsmitted reference range : <=1.0. The reference r alana was not used to int erpret this result as normal/abnormal . [facility] HospitalFfxtybeBQHWGCPDGM6019-73-75 12:40:00 Test Item Value Reference Range Interpretation Comments Eosinophils # (test code 0.1 See_Comment [A utomated message] The = Eosinophils #) system whic h generated this result tra nsmitted reference range : <=0.5. The reference r alana was not used to int erpret this result as normal/abnormal . [facility] HospitalGtoybwzTQJEHDVLIX4115-15-40 12:40:00 Test Item Value Reference Range Interpretation Comments Microcyte (test code = 1+ *ABN*(03/04/17 Microcyte) 6:40 AM) [facility] HospitalYaikrbsAJJTDPQBCJ4389-76-30 12:40:00 Test Item Value Reference Range Interpretation Comments Lymphocytes # (test code = Lymphocytes 2.4 1.0-5.5 #) [facility] HospitalAmvqkhkELIBICUBDS0792-07-47 12:40:00 Test Item Value Reference Range Interpretation Comments Monocytes # (test code 1.5 See_Comment [Aut omated message] The = Monocytes #) system which generated this result tra nsmitted reference range : <=0.8. The reference r alana was not used to int erpret this result as normal/abnormal . [facility] HospitalSjhohmbNMFDFCPTXJ9972-55-44 12:40:00 Test Item Value Reference Range Interpretation Comments Segs-Bands # (test code = Segs-Bands #) 16.5 1.5-8.1 [facility] HospitalJftjsecHCMHEBKXEI0811-26-48 12:40:00 Test Item Value Reference Range Interpretation Comments Plt Morph (test code = Normal (03/04/17 6:40 Plt Morph) AM) [facility] HospitalLhiolszZKRZBOKWLF9462-10-86 12:40:00 Test Item Value Reference Range Interpretation Comments Segs (test code = Segs) 80.7 45.0-75.0 [facility] HospitalGhluqorLABUCJMREE6443-40-14 12:40:00 Test Item Value Reference Range Interpretation Comments Lymphocytes (test code = Lymphocytes) 11.7 20.0-40.0 [facility] HospitalKtrrapcPAFSLCQMLI0071-45-13 12:40:00 Test Item Value Reference Range Interpretation Comments Platelet (test code = Platelet) 192 133-450 [facility] HospitalEkkpaqnFQTDOXLTIY6682-50-91 12:40:00 Test Item Value Reference Range Interpretation Comments MPV (test code = MPV) 8.0 7.4-10.4 [facility] HospitalTlpmintTQONBZZHGB9155-78-58 12:40:00 Test Item Value Reference Range Interpretation Comments MCH (test code = MCH) 26.4 pg 27.0-31.0 [facility] HospitalXjtlkrrBZBZLAPUVE6122-07-34 12:40:00 Test Item Value Reference Range Interpretation Comments MCHC (test code = MCHC) 33.5 32.0-36.0 [facility] HospitalSujmsikDJEOGPPWJD1247-13-56 12:40:00 Test Item Value Reference Range Interpretation Comments RDW (test code = RDW) 14.2 11.5-14.5 [facility] HospitalUndobivKDKVLODIUV5901-73-65 12:40:00 Test Item Value Reference Range Interpretation Comments Hct (test code = Hct) 32.2 36.0-48.0 [facility] HospitalQelwiyzVCOVJWABNG9922-48-96 12:40:00 Test Item Value Reference Range Interpretation Comments Hgb (test code = Hgb) 10.8 12.0-16.0 [facility] HospitalRhltkqtAFWYPVVCCE0512-27-63 12:40:00 Test Item Value Reference Range Interpretation Comments Eosinophils (test code = 0.3 See_Comment [A utomated message] The Eosinophils) system which ge nerated this result tra nsmitted reference range : <=4.0. The reference r alana was not used to int erpret this result as normal/abnormal . [facility] HospitalZdddbkdTUWHWEVGZE5980-27-73 12:40:00 Test Item Value Reference Range Interpretation Comments MCV (test code = MCV) 78.9 80.0-98.0 [facility] HospitalNisnqfyDQTUYZFTJW5805-65-56 12:40:00 Test Item Value Reference Range Interpretation Comments RBC (test code = RBC) 4.09 4.20-5.40 [facility] HospitalBaoclcpDUKETJTEUJ5189-24-90 12:40:00 Test Item Value Reference Range Interpretation Comments WBC (test code = WBC) 20.4 3.7-10.4 [facility] HospitalZamgeziZQNJUKILSO6752-01-15 12:40:00 Test Item Value Reference Range Interpretation Comments Monocytes (test code = Monocytes) 7.1 2.0-12.0 [facility] HospitalVwcvnvvRMWBFUHMAG9483-27-05 12:40:00 Test Item Value Reference Range Interpretation Comments Basophils (test code = 0.2 See_Comment [Aut omated message] The Basophils) system which ge nerated this result tra nsmitted reference range : <=1.0. The reference r alana was not used to int erpret this result as normal/abnormal . [facility] HospitalPosaubyCYKIFHCKFG3776-52-18 12:40:00 Test Item Value Reference Range Interpretation Comments Eosinophils # (test code 0.1 See_Comment [A utomated message] The = Eosinophils #) system [facility] generated this result tra nsmitted reference range : <=0.5. The reference r alana was not used to int erpret this result as normal/abnormal . [facility] HospitalBiqrxesWOFRELUSXW6146-65-21 12:40:00 Test Item Value Reference Range Interpretation Comments Microcyte (test code = 1+ *ABN*(03/04/17 Microcyte) 6:40 AM) [facility] HospitalIqjwvbvLQRMFRASIG2799-02-99 12:40:00 Test Item Value Reference Range Interpretation Comments Lymphocytes # (test code = Lymphocytes 2.4 1.0-5.5 #) [facility] HospitalRwphxwuDFFCEJVCQW3798-52-03 12:40:00 Test Item Value Reference Range Interpretation Comments Monocytes # (test code 1.5 See_Comment [Aut omated message] The = Monocytes #) system which generated this result tra nsmitted reference range : <=0.8. The reference r alana was not used to int erpret this result as normal/abnormal . [facility] HospitalOriiipqINIMHJIJHW3460-80-98 12:40:00 Test Item Value Reference Range Interpretation Comments Segs-Bands # (test code = Segs-Bands #) 16.5 1.5-8.1 [facility] HospitalGwtrediPUMPPSVQLU9999-63-34 12:40:00 Test Item Value Reference Range Interpretation Comments Plt Morph (test code = Normal (03/04/17 6:40 Plt Morph) AM) [facility] HospitalTllxhmtIAABVFNFUR8644-10-00 12:40:00 Test Item Value Reference Range Interpretation Comments Segs (test code = Segs) 80.7 45.0-75.0 [facility] HospitalSwrqgspQBFGIGZNYZ9328-54-42 12:40:00 Test Item Value Reference Range Interpretation Comments Lymphocytes (test code = Lymphocytes) 11.7 20.0-40.0 [facility] HospitalEaxggufLWXMBIBOCX5164-13-14 12:40:00 Test Item Value Reference Range Interpretation Comments Platelet (test code = Platelet) 192 133-450 [facility] HospitalSaaaoiyJSWDVVUIEU8440-54-59 12:40:00 Test Item Value Reference Range Interpretation Comments MPV (test code = MPV) 8.0 7.4-10.4 [facility] HospitalZjgkdulURVGJXJCIZ5488-39-64 12:40:00 Test Item Value Reference Range Interpretation Comments MCH (test code = MCH) 26.4 pg 27.0-31.0 [facility] HospitalOqnnscdEOEZQVYNXB5038-30-44 12:40:00 Test Item Value Reference Range Interpretation Comments MCHC (test code = MCHC) 33.5 32.0-36.0 [facility] HospitalVuptztqIVHTYJAHCF1832-52-09 12:40:00 Test Item Value Reference Range Interpretation Comments RDW (test code = RDW) 14.2 11.5-14.5 [facility] HospitalPuggdvdYYRQRVTAWD4249-78-59 12:40:00 Test Item Value Reference Range Interpretation Comments Hct (test code = Hct) 32.2 36.0-48.0 [facility] HospitalOtfajpmTTRJSESXYA2676-17-02 12:40:00 Test Item Value Reference Range Interpretation Comments Hgb (test code = Hgb) 10.8 12.0-16.0 [facility] HospitalEcnazdhZAHBFNNKRY5905-41-33 12:40:00 Test Item Value Reference Range Interpretation Comments MCV (test code = MCV) 78.9 80.0-98.0 [facility] HospitalCwixfvzQNZIZOSUIS3226-18-19 12:40:00 Test Item Value Reference Range Interpretation Comments RBC (test code = RBC) 4.09 4.20-5.40 [facility] HospitalEotbtktIGOCPMJKOC9385-55-26 12:40:00 Test Item Value Reference Range Interpretation Comments WBC (test code = WBC) 20.4 3.7-10.4 [facility] HospitalQexgaohVLMSYSWYXH8608-43-13 12:40:00 Test Item Value Reference Range Interpretation Comments Eosinophils (test code = 0.3 See_Comment [A utomated message] The Eosinophils) system which ge nerated this result tra nsmitted reference range : <=4.0. The reference r alana was not used to int erpret this result as normal/abnormal . [facility] HospitalOkojuumCKOFRHOWZY7043-20-33 12:40:00 Test Item Value Reference Range Interpretation Comments Monocytes (test code = Monocytes) 7.1 2.0-12.0 [facility] HospitalIwjfovpNPXRPVFZIV9449-84-58 12:40:00 Test Item Value Reference Range Interpretation Comments Basophils (test code = 0.2 See_Comment [Aut omated message] The Basophils) system which ge nerated this result tra nsmitted reference range : <=1.0. The reference r alana was not used to int erpret this result as normal/abnormal . [facility] HospitalQgvqxtjHOVBRXHEVS6787-41-94 12:40:00 Test Item Value Reference Range Interpretation Comments Eosinophils # (test code 0.1 See_Comment [A utomated message] The = Eosinophils #) system whic h generated this result tra nsmitted reference range : <=0.5. The reference r alana was not used to int erpret this result as normal/abnormal . [id number] 12:40:00 Test Item Value Reference Range Interpretation Comments Microcyte (test code = 1+ *ABN*(03/04/17 Microcyte) 6:40 AM) [facility] Hospit[id number] 12:40:00 Test Item Value Reference Range Interpretation Comments Lymphocytes # (test code = Lymphocytes 2.4 1.0-5.5 #) [facility] HospitalC[id number] 12:40:00 Test Item Value Reference Range Interpretation Comments Monocytes # (test code 1.5 See_Comment [Aut omated message] The = Monocytes #) system which generated this result tra nsmitted reference range : <=0.8. The reference r alana was not used to int erpret this result as normal/abnormal . [facility] Hospit[id number] 12:40:00 Test Item Value Reference Range Interpretation Comments Segs-Bands # (test code = Segs-Bands #) 16.5 1.5-8.1 [facility] Ho[id number] 12:40:00 Test Item Value Reference Range Interpretation Comments Plt Morph (test code = Normal (03/04/17 6:40 Plt Morph) AM) [facility] Hospit[id number] 12:40:00 Test Item Value Reference Range Interpretation Comments Eosinophils (test code = 0.3 See_Comment [A utomated message] The Eosinophils) system which ge nerated this result tra nsmitted reference range : <=4.0. The reference r alana was not used to int erpret this result as normal/abnormal . [facility] HospitalJivftdyAWHKDFAROD7907-55-08 12:40:00 Test Item Value Reference Range Interpretation Comments Monocytes (test code = Monocytes) 7.1 2.0-12.0 [facility] HospitalNgdpuoqZXIBTUJFAL4648-90-37 12:40:00 Test Item Value Reference Range Interpretation Comments Basophils (test code = 0.2 See_Comment [Aut omated message] The Basophils) system which ge nerated this result tra nsmitted reference range : <=1.0. The reference r alana was not used to int erpret this result as normal/abnormal . [facility] HospitalCjxtqoxVDJEIUGRKV6713-96-34 12:40:00 Test Item Value Reference Range Interpretation Comments Eosinophils # (test code 0.1 See_Comment [A utomated message] The = Eosinophils #) system whic h generated this result tra nsmitted reference range : <=0.5. The reference r alana was not used to int erpret this result as normal/abnormal . [facility] HospitalPjfsrqxSDMCYWEHQR8247-56-52 12:40:00 Test Item Value Reference Range Interpretation Comments Microcyte (test code = 1+ *ABN*(03/04/17 Microcyte) 6:40 AM) [facility] HospitalBfiwkpuPJSDMXUSQM3374-58-85 12:40:00 Test Item Value Reference Range Interpretation Comments Lymphocytes # (test code = Lymphocytes 2.4 1.0-5.5 #) [facility] HospitalRsenhoqIUBIQRYVAI9546-16-23 12:40:00 Test Item Value Reference Range Interpretation Comments Monocytes # (test code 1.5 See_Comment [Aut omated message] The = Monocytes #) system which generated this result tra nsmitted reference range : <=0.8. The reference r alana was not used to int erpret this result as normal/abnormal . [facility] HospitalLbjeyedTLNCSQKRYJ2809-06-04 12:40:00 Test Item Value Reference Range Interpretation Comments Segs-Bands # (test code = Segs-Bands #) 16.5 1.5-8.1 [facility] HospitalMkavhzvSJOLZCOQBY6218-02-93 12:40:00 Test Item Value Reference Range Interpretation Comments Plt Morph (test code = Normal (03/04/17 6:40 Plt Morph) AM) [facility] HospitalOiecvmhMIPVYSYRNY9146-84-51 12:40:00 Test Item Value Reference Range Interpretation Comments Segs (test code = Segs) 80.7 45.0-75.0 [facility] HospitalTqnzmtcJGJGKCULOW6489-08-20 12:40:00 Test Item Value Reference Range Interpretation Comments Lymphocytes (test code = Lymphocytes) 11.7 20.0-40.0 [facility] Hospit[id number] 12:40:00 Test Item Value Reference Range Interpretation Comments Platelet (test code = Platelet) 192 133-450 [facility] HospitalFbuwlshCZJKVCDRDN6043-56-63 12:40:00 Test Item Value Reference Range Interpretation Comments MPV (test code = MPV) 8.0 7.4-10.4 [facility] HospitalGdombobLICXADRALZ8057-28-74 12:40:00 Test Item Value Reference Range Interpretation Comments MCH (test code = MCH) 26.4 pg 27.0-31.0 [facility] HospitalWiticsmCKCKXPYTWD9956-68-63 12:40:00 Test Item Value Reference Range Interpretation Comments MCHC (test code = MCHC) 33.5 32.0-36.0 [facility] HospitalEldbcrfSQZVENBSZG4873-34-40 12:40:00 Test Item Value Reference Range Interpretation Comments RDW (test code = RDW) 14.2 11.5-14.5 [facility] HospitalPectxznNXOCUNJGDK5107-29-00 12:40:00 Test Item Value Reference Range Interpretation Comments Hct (test code = Hct) 32.2 36.0-48.0 [facility] HospitalUxjbkccFULWQRGXWA0992-05-89 12:40:00 Test Item Value Reference Range Interpretation Comments Hgb (test code = Hgb) 10.8 12.0-16.0 [facility] HospitalAdsinujFQJAPCFIMJ9369-67-51 12:40:00 Test Item Value Reference Range Interpretation Comments MCV (test code = MCV) 78.9 80.0-98.0 [facility] HospitalXdklhvuVODTQXPXUV9442-11-62 12:40:00 Test Item Value Reference Range Interpretation Comments RBC (test code = RBC) 4.09 4.20-5.40 [facility] HospitalEkqyvktUSSYRQICIA1540-65-48 12:40:00 Test Item Value Reference Range Interpretation Comments WBC (test code = WBC) 20.4 3.7-10.4 [facility] HospitalAvnuagnQYEYLUUNAP4481-87-12 12:40:00 Test Item Value Reference Range Interpretation Comments Eosinophils (test code = 0.3 See_Comment [A utomated message] The Eosinophils) system which ge nerated this result tra nsmitted reference range : <=4.0. The reference r alana was not used to int erpret this result as normal/abnormal . [facility] HospitalAwwoqtlBYEATDYOZF9498-76-24 12:40:00 Test Item Value Reference Range Interpretation Comments Monocytes (test code = Monocytes) 7.1 2.0-12.0 [facility] HospitalLhisjoxQJYTYWHQEH4654-41-47 12:40:00 Test Item Value Reference Range Interpretation Comments Basophils (test code = 0.2 See_Comment [Aut omated message] The Basophils) system which ge nerated this result tra nsmitted reference range : <=1.0. The reference r alana was not used to int erpret this result as normal/abnormal . [facility] HospitalVfpiagxHAFNDYKACG3221-57-09 12:40:00 Test Item Value Reference Range Interpretation Comments Eosinophils # (test code 0.1 See_Comment [A utomated message] The = Eosinophils #) system whic h generated this result tra nsmitted reference range : <=0.5. The reference r alana was not used to int erpret this result as normal/abnormal . [facility] HospitalGfnqpvdURICMXUVBH2642-09-74 12:40:00 Test Item Value Reference Range Interpretation Comments Microcyte (test code = 1+ *ABN*(03/04/17 Microcyte) 6:40 AM) [facility] Hospit[id number] 12:40:00 Test Item Value Reference Range Interpretation Comments Lymphocytes # (test code = Lymphocytes 2.4 1.0-5.5 #) [facility] HospitalRfcefyyMDMZJHSQPO0694-02-70 12:40:00 Test Item Value Reference Range Interpretation Comments Monocytes # (test code 1.5 See_Comment [Aut omated message] The = Monocytes #) system which generated this result tra nsmitted reference range : <=0.8. The reference r alana was not used to int erpret this result as normal/abnormal . [facility] HospitalFuyxllpNUIJEIWCUP9022-56-65 12:40:00 Test Item Value Reference Range Interpretation Comments Segs-Bands # (test code = Segs-Bands #) 16.5 1.5-8.1 [facility] HospitalJktjmqzTVDRWAABJV4013-97-64 12:40:00 Test Item Value Reference Range Interpretation Comments Plt Morph (test code = Normal (03/04/17 6:40 Plt Morph) AM) [facility] HospitalAlzgivbJMZAUEFFOZ4363-82-89 12:40:00 Test Item Value Reference Range Interpretation Comments Segs (test code = Segs) 80.7 45.0-75.0 [facility] HospitalHhbryboOTJXVSRHPD1727-06-87 12:40:00 Test Item Value Reference Range Interpretation Comments Lymphocytes (test code = Lymphocytes) 11.7 20.0-40.0 [facility] HospitalP[id number] 12:40:00 Test Item Value Reference Range Interpretation Comments Platelet (test code = Platelet) 192 133-450 [facility] HospitalMopmzsaJLBUIDUARY9210-75-69 12:40:00 Test Item Value Reference Range Interpretation Comments MPV (test code = MPV) 8.0 7.4-10.4 [facility] HospitalVheissqUEYKNWDQYH6671-07-59 12:40:00 Test Item Value Reference Range Interpretation Comments MCH (test code = MCH) 26.4 pg 27.0-31.0 [facility] HospitalFdjblgdZZFAFXVAMN1031-41-63 12:40:00 Test Item Value Reference Range Interpretation Comments MCHC (test code = MCHC) 33.5 32.0-36.0 [facility] HospitalPizxqafBOLGZVPYDN4323-39-54 12:40:00 Test Item Value Reference Range Interpretation Comments RDW (test code = RDW) 14.2 11.5-14.5 [facility] HospitalXipphuiPYZRODIVFQ3452-68-23 12:40:00 Test Item Value Reference Range Interpretation Comments Hct (test code = Hct) 32.2 36.0-48.0 [facility] HospitalBnjzllkRZNUGZJOSF2190-74-52 12:40:00 Test Item Value Reference Range Interpretation Comments Hgb (test code = Hgb) 10.8 12.0-16.0 [facility] HospitalZbctvtqTIFEIOEUKB2650-47-32 12:40:00 Test Item Value Reference Range Interpretation Comments MCV (test code = MCV) 78.9 80.0-98.0 [facility] HospitalEgqrlepLKILMAAUNR7672-53-46 12:40:00 Test Item Value Reference Range Interpretation Comments RBC (test code = RBC) 4.09 4.20-5.40 [facility] HospitalSexximpPXGBOBGXDF7544-46-94 12:40:00 Test Item Value Reference Range Interpretation Comments WBC (test code = WBC) 20.4 3.7-10.4 [facility] HospitalQlcozikHJRZFWOWDM0468-71-00 12:40:00 Test Item Value Reference Range Interpretation Comments Segs (test code = Segs) 80.7 45.0-75.0 [facility] HospitalKvasxbeELVRLEXGBN1455-75-50 12:40:00 Test Item Value Reference Range Interpretation Comments Lymphocytes (test code = Lymphocytes) 11.7 20.0-40.0 [facility] AND [id number] 10:56:00 Test Item Value Reference Range Interpretation Comments UA Mucus (test code = UA Mucus) Few /LPF [facility] AND [id number] 10:56:00 Test Item Value Reference Range Interpretation Comments UA Bacteria (test code = UA Occasional /HPF Bacteria) [facility] AND [id number] 10:56:00 Test Item Value Reference Range Interpretation Comments UA Trans Epi (test code = UA Trans Epi) RARE [facility] AND [id number] 10:56:00 Test Item Value Reference Range Interpretation Comments UA Urobilinogen (test code = UA <=1.0 mg/dL 0.1-1.0 Urobilinogen) [facility] AND [id number] 10:56:00 Test Item Value Reference Range Interpretation Comments UA Amorph Laly (test code = UA Few /HPF Amorph Laly) [facility] AND [id number] 10:56:00 Test Item Value Reference Range Interpretation Comments UA RBC (test code = 28 See_Comment [Automa barbara message] The UA RBC) system which ge nerated this result transmit barbara reference range : <=2. The reference range was not used to interpr et this result as marciano l/abnormal. [facility] AND [id number] 10:56:00 Test Item Value Reference Range Interpretation Comments UA WBC (test code = 7 See_Comment [Automa barbara message] The UA WBC) system which ge nerated this result transmit barbara reference range : <=5. The reference range was not used to interpr et this result as marciano l/abnormal. [facility] AND [id number] 10:56:00 Test Item Value Reference Range Interpretation Comments UA Sq Epi (test code = UA Sq Epi) Many /LPF [facility] AND [id number] 10:56:00 Test Item Value Reference Range Interpretation Comments UA Leuk Est (test code Small *ABN*(03/02/17 = UA Leuk Est) 4:56 AM) [facility] AND [id number] 10:56:00 Test Item Value Reference Range Interpretation Comments UA Spec Grav (test code = UA Spec Grav) 1.009 [facility] AND [id number] 10:56:00 Test Item Value Reference Range Interpretation Comments UA Turbidity (test code Slight *ABN*(03/02/17 = UA Turbidity) 4:56 AM) [facility] AND [id number] 10:56:00 Test Item Value Reference Range Interpretation Comments UA Color (test code = Yellow *NA*(03/02/17 UA Color) 4:56 AM) [facility] AND [id number] 10:56:00 Test Item Value Reference Range Interpretation Comments UA Bili (test code = Negative *NA*(03/02/17 UA Bili) 4:56 AM) [facility] AND [id number] 10:56:00 Test Item Value Reference Range Interpretation Comments UA Ketones (test code = UA Negative mg/dL Ketones) [facility] AND [id number] 10:56:00 Test Item Value Reference Range Interpretation Comments UA pH (test code = UA pH) 6.5 5.0-8.0 [facility] AND [id number] 10:56:00 Test Item Value Reference Range Interpretation Comments UA Blood (test code = Small *ABN*(03/02/17 UA Blood) 4:56 AM) [facility] AND [id number] 10:56:00 Test Item Value Reference Range Interpretation Comments UA Nitrite (test code Negative (03/02/17 4:56 = UA Nitrite) AM) [facility] AND [id number] 10:56:00 Test Item Value Reference Range Interpretation Comments UA Glucose (test code = UA Negative mg/dL Glucose) [facility] AND [id number] 10:56:00 Test Item Value Reference Range Interpretation Comments UA Protein (test code = UA Protein) 30 mg/dL [facility] AND [id number] 10:56:00 Test Item Value Reference Range Interpretation Comments UA Mucus (test code = UA Mucus) Few /LPF [facility] AND [id number] 10:56:00 Test Item Value Reference Range Interpretation Comments UA Bacteria (test code = UA Occasional /HPF Bacteria) [facility] AND [id number] 10:56:00 Test Item Value Reference Range Interpretation Comments UA Trans Epi (test code = UA Trans Epi) RARE [facility] AND [id number] 10:56:00 Test Item Value Reference Range Interpretation Comments UA Urobilinogen (test code = UA <=1.0 mg/dL 0.1-1.0 Urobilinogen) [facility] AND [id number] 10:56:00 Test Item Value Reference Range Interpretation Comments UA Amorph Laly (test code = UA Few /HPF Amorph Layl) [facility] AND [id number] 10:56:00 Test Item Value Reference Range Interpretation Comments UA RBC (test code = 28 See_Comment [Automa barbara message] The UA RBC) system which ge nerated this result transmit barbara reference range : <=2. The reference range was not used to interpr et this result as marciano l/abnormal. [facility] AND [id number] 10:56:00 Test Item Value Reference Range Interpretation Comments UA WBC (test code = 7 See_Comment [Automa barbara message] The UA WBC) system which ge nerated this result transmit barbara reference range : <=5. The reference range was not used to interpr et this result as marciano l/abnormal. [facility] AND [id number] 10:56:00 Test Item Value Reference Range Interpretation Comments UA Sq Epi (test code = UA Sq Epi) Many /LPF [facility] AND [id number] 10:56:00 Test Item Value Reference Range Interpretation Comments UA Leuk Est (test code Small *ABN*(03/02/17 = UA Leuk Est) 4:56 AM) [facility] AND [id number] 10:56:00 Test Item Value Reference Range Interpretation Comments UA Spec Grav (test code = UA Spec Grav) 1.009 [facility] AND [id number] 10:56:00 Test Item Value Reference Range Interpretation Comments UA Turbidity (test code Slight *ABN*(03/02/17 = UA Turbidity) 4:56 AM) [facility] AND [id number] 10:56:00 Test Item Value Reference Range Interpretation Comments UA Color (test code = Yellow *NA*(03/02/17 UA Color) 4:56 AM) [facility] AND [id number] 10:56:00 Test Item Value Reference Range Interpretation Comments UA Bili (test code = Negative *NA*(03/02/17 UA Bili) 4:56 AM) [facility] AND [id number] 10:56:00 Test Item Value Reference Range Interpretation Comments UA Ketones (test code = UA Negative mg/dL Ketones) [facility] AND [id number] 10:56:00 Test Item Value Reference Range Interpretation Comments UA pH (test code = UA pH) 6.5 5.0-8.0 [facility] AND [id number] 10:56:00 Test Item Value Reference Range Interpretation Comments UA Blood (test code = Small *ABN*(03/02/17 UA Blood) 4:56 AM) [facility] AND [id number] 10:56:00 Test Item Value Reference Range Interpretation Comments UA Nitrite (test code Negative (03/02/17 4:56 = UA Nitrite) AM) [facility] AND [id number] 10:56:00 Test Item Value Reference Range Interpretation Comments UA Glucose (test code = UA Negative mg/dL Glucose) [facility] AND [id number] 10:56:00 Test Item Value Reference Range Interpretation Comments UA Protein (test code = UA Protein) 30 mg/dL [facility] AND [id number] 10:56:00 Test Item Value Reference Range Interpretation Comments UA Mucus (test code = UA Mucus) Few /LPF [facility] AND [id number] 10:56:00 Test Item Value Reference Range Interpretation Comments UA Bacteria (test code = UA Occasional /HPF Bacteria) [facility] AND [id number] 10:56:00 Test Item Value Reference Range Interpretation Comments UA Trans Epi (test code = UA Trans Epi) RARE [facility] AND [id number] 10:56:00 Test Item Value Reference Range Interpretation Comments UA Urobilinogen (test code = UA <=1.0 mg/dL 0.1-1.0 Urobilinogen) [facility] AND [id number] 10:56:00 Test Item Value Reference Range Interpretation Comments UA Amorph Laly (test code = UA Few /HPF Amorph Laly) [facility] AND [id number] 10:56:00 Test Item Value Reference Range Interpretation Comments UA RBC (test code = 28 See_Comment [Automa barbara message] The UA RBC) system which ge nerated this result transmit barbara reference range : <=2. The reference range was not used to interpr et this result as marciano l/abnormal. [facility] AND [id number] 10:56:00 Test Item Value Reference Range Interpretation Comments UA WBC (test code = 7 See_Comment [Automa barbara message] The UA WBC) system which ge nerated this result transmit barbara reference range : <=5. The reference range was not used to interpr et this result as marciano l/abnormal. [facility] AND [id number] 10:56:00 Test Item Value Reference Range Interpretation Comments UA Sq Epi (test code = UA Sq Epi) Many /LPF [facility] AND [id number] 10:56:00 Test Item Value Reference Range Interpretation Comments UA Leuk Est (test code Small *ABN*(03/02/17 = UA Leuk Est) 4:56 AM) [facility] AND [id number] 10:56:00 Test Item Value Reference Range Interpretation Comments UA Spec Grav (test code = UA Spec Grav) 1.009 [facility] AND [id number] 10:56:00 Test Item Value Reference Range Interpretation Comments UA Turbidity (test code Slight *ABN*(03/02/17 = UA Turbidity) 4:56 AM) [facility] AND [id number] 10:56:00 Test Item Value Reference Range Interpretation Comments UA Color (test code = Yellow *NA*(03/02/17 UA Color) 4:56 AM) [facility] AND [id number] 10:56:00 Test Item Value Reference Range Interpretation Comments UA Bili (test code = Negative *NA*(03/02/17 UA Bili) 4:56 AM) [facility] AND [id number] 10:56:00 Test Item Value Reference Range Interpretation Comments UA Ketones (test code = UA Negative mg/dL Ketones) [facility] AND [id number] 10:56:00 Test Item Value Reference Range Interpretation Comments UA pH (test code = UA pH) 6.5 5.0-8.0 [facility] AND [id number] 10:56:00 Test Item Value Reference Range Interpretation Comments UA Blood (test code = Small *ABN*(03/02/17 UA Blood) 4:56 AM) [facility] [id number] 10:56:00 Test Item Value Reference Range Interpretation Comments UA Nitrite (test code Negative (03/02/17 4:56 = UA Nitrite) AM) [facility] AND [id number] 10:56:00 Test Item Value Reference Range Interpretation Comments UA Glucose (test code = UA Negative mg/dL Glucose) [facility] [id number] 10:56:00 Test Item Value Reference Range Interpretation Comments UA Protein (test code = UA Protein) 30 mg/dL [facility] AND [id number] 10:56:00 Test Item Value Reference Range Interpretation Comments UA Mucus (test code = UA Mucus) Few /LPF [facility] AND [id number] 10:56:00 Test Item Value Reference Range Interpretation Comments UA Bacteria (test code = UA Occasional /HPF Bacteria) [facility] AND [id number] 10:56:00 Test Item Value Reference Range Interpretation Comments UA Trans Epi (test code = UA Trans Epi) RARE [facility] AND [id number] 10:56:00 Test Item Value Reference Range Interpretation Comments UA Urobilinogen (test code = UA <=1.0 mg/dL 0.1-1.0 Urobilinogen) [facility] AND [id number] 10:56:00 Test Item Value Reference Range Interpretation Comments UA Amorph Laly (test code = UA Few /HPF Amorph Laly) [facility] AND [id number] 10:56:00 Test Item Value Reference Range Interpretation Comments UA RBC (test code = 28 See_Comment [Automa barbara message] The UA RBC) system which ge nerated this result transmit barbara reference range : <=2. The reference range was not used to interpr et this result as marciano l/abnormal. [facility] AND [id number] 10:56:00 Test Item Value Reference Range Interpretation Comments UA WBC (test code = 7 See_Comment [Automa barbara message] The UA WBC) system which ge nerated this result transmit barbara reference range : <=5. The reference range was not used to interpr et this result as marciano l/abnormal. [facility] AND [id number] 10:56:00 Test Item Value Reference Range Interpretation Comments UA Sq Epi (test code = UA Sq Epi) Many /LPF [facility] AND [id number] 10:56:00 Test Item Value Reference Range Interpretation Comments UA Leuk Est (test code Small *ABN*(03/02/17 = UA Leuk Est) 4:56 AM) [facility] AND [id number] 10:56:00 Test Item Value Reference Range Interpretation Comments UA Spec Grav (test code = UA Spec Grav) 1.009 [facility] AND [id number] 10:56:00 Test Item Value Reference Range Interpretation Comments UA Turbidity (test code Slight *ABN*(03/02/17 = UA Turbidity) 4:56 AM) [facility] AND [id number] 10:56:00 Test Item Value Reference Range Interpretation Comments UA Color (test code = Yellow *NA*(03/02/17 UA Color) 4:56 AM) [facility] AND [id number] 10:56:00 Test Item Value Reference Range Interpretation Comments UA Bili (test code = Negative *NA*(03/02/17 UA Bili) 4:56 AM) [facility] AND [id number] 10:56:00 Test Item Value Reference Range Interpretation Comments UA Ketones (test code = UA Negative mg/dL Ketones) [facility] AND [id number] 10:56:00 Test Item Value Reference Range Interpretation Comments UA pH (test code = UA pH) 6.5 5.0-8.0 [facility] AND [id number] 10:56:00 Test Item Value Reference Range Interpretation Comments UA Blood (test code = Small *ABN*(03/02/17 UA Blood) 4:56 AM) [facility] AND [id number] 10:56:00 Test Item Value Reference Range Interpretation Comments UA Nitrite (test code Negative (03/02/17 4:56 = UA Nitrite) AM) [facility] AND [id number] 10:56:00 Test Item Value Reference Range Interpretation Comments UA Glucose (test code = UA Negative mg/dL Glucose) [facility] AND [id number] 10:56:00 Test Item Value Reference Range Interpretation Comments UA Protein (test code = UA Protein) 30 mg/dL [facility] AND [id number] 10:56:00 Test Item Value Reference Range Interpretation Comments UA Mucus (test code = UA Mucus) Few /LPF [facility] AND [id number] 10:56:00 Test Item Value Reference Range Interpretation Comments UA Bacteria (test code = UA Occasional /HPF Bacteria) [facility] AND [id number] 10:56:00 Test Item Value Reference Range Interpretation Comments UA Trans Epi (test code = UA Trans Epi) RARE [facility] AND [id number] 10:56:00 Test Item Value Reference Range Interpretation Comments UA Urobilinogen (test code = UA <=1.0 mg/dL 0.1-1.0 Urobilinogen) [facility] AND [id number] 10:56:00 Test Item Value Reference Range Interpretation Comments UA Amorph Laly (test code = UA Few /HPF Amorph Laly) [facility] AND [id number] 10:56:00 Test Item Value Reference Range Interpretation Comments UA RBC (test code = 28 See_Comment [Automa barbara message] The UA RBC) system which ge nerated this result transmit barbara reference range : <=2. The reference range was not used to interpr et this result as marciano l/abnormal. [facility] AND [id number] 10:56:00 Test Item Value Reference Range Interpretation Comments UA WBC (test code = 7 See_Comment [Automa barbara message] The UA WBC) system which ge nerated this result transmit barbara reference range : <=5. The reference range was not used to interpr et this result as marciano l/abnormal. [facility] AND [id number] 10:56:00 Test Item Value Reference Range Interpretation Comments UA Sq Epi (test code = UA Sq Epi) Many /LPF [facility] AND [id number] 10:56:00 Test Item Value Reference Range Interpretation Comments UA Leuk Est (test code Small *ABN*(03/02/17 = UA Leuk Est) 4:56 AM) [facility] AND [id number] 10:56:00 Test Item Value Reference Range Interpretation Comments UA Spec Grav (test code = UA Spec Grav) 1.009 [facility] AND [id number] 10:56:00 Test Item Value Reference Range Interpretation Comments UA Turbidity (test code Slight *ABN*(03/02/17 = UA Turbidity) 4:56 AM) [facility] AND [id number] 10:56:00 Test Item Value Reference Range Interpretation Comments UA Color (test code = Yellow *NA*(03/02/17 UA Color) 4:56 AM) [facility] AND [id number] 10:56:00 Test Item Value Reference Range Interpretation Comments UA Bili (test code = Negative *NA*(03/02/17 UA Bili) 4:56 AM) [facility] AND [id number] 10:56:00 Test Item Value Reference Range Interpretation Comments UA Ketones (test code = UA Negative mg/dL Ketones) [facility] AND [id number] 10:56:00 Test Item Value Reference Range Interpretation Comments UA pH (test code = UA pH) 6.5 5.0-8.0 [facility] AND [id number] 10:56:00 Test Item Value Reference Range Interpretation Comments UA Blood (test code = Small *ABN*(03/02/17 UA Blood) 4:56 AM) [facility] AND [id number] 10:56:00 Test Item Value Reference Range Interpretation Comments UA Nitrite (test code Negative (03/02/17 4:56 = UA Nitrite) AM) [facility] AND [id number] 10:56:00 Test Item Value Reference Range Interpretation Comments UA Glucose (test code = UA Negative mg/dL Glucose) [facility] AND [id number] 10:56:00 Test Item Value Reference Range Interpretation Comments UA Protein (test code = UA Protein) 30 mg/dL [facility] [id number] 09:52:00 Test Item Value Reference Range Interpretation Comments Antibody Scrn (test Negative (03/02/17 code = Antibody Scrn) 3:52 AM) [facility] [id number] 09:52:00 Test Item Value Reference Range Interpretation Comments ABO/Rh (test code = ABO/Rh) O POS [id number] 09:52:00 Test Item Value Reference Range Interpretation Comments Microcyte (test code = 1+ *ABN*(03/02/17 Microcyte) 3:52 AM) [facility] Hospit[id number] 09:52:00 Test Item Value Reference Range Interpretation Comments Basophils (test code = 0.4 See_Comment [Aut omated message] The Basophils) system which ge nerated this result tra nsmitted reference range : <=1.0. The reference r alana was not used to int erpret this result as normal/abnormal . [facility] HospitalYpfwrstHLLVAWGFRY6879-46-06 09:52:00 Test Item Value Reference Range Interpretation Comments Basophils # (test code 0.1 See_Comment [Aut omated message] The = Basophils #) system which generated this result tra nsmitted reference range : <=0.2. The reference r alana was not used to int erpret this result as normal/abnormal . [facility] HospitalMujsdhdUFEZQVZOLF3200-81-17 09:52:00 Test Item Value Reference Range Interpretation Comments Monocytes # (test code 0.9 See_Comment [Aut omated message] The = Monocytes #) system which generated this result tra nsmitted reference range : <=0.8. The reference r alana was not used to int erpret this result as normal/abnormal . [facility] HospitalGrggewaOKPDKBWMUJ1714-19-39 09:52:00 Test Item Value Reference Range Interpretation Comments Lymphocytes # (test code = Lymphocytes 1.9 1.0-5.5 #) [facility] HospitalAjxrojoUDBOKCBHVU4654-27-48 09:52:00 Test Item Value Reference Range Interpretation Comments Segs-Bands # (test code = Segs-Bands #) 11.0 1.5-8.1 [facility] HospitalNimmenqUEPEJRCBON7306-72-16 09:52:00 Test Item Value Reference Range Interpretation Comments Monocytes (test code = Monocytes) 6.3 2.0-12.0 [facility] HospitalSgscthvQFHUWQERYF2479-26-90 09:52:00 Test Item Value Reference Range Interpretation Comments Lymphocytes (test code = Lymphocytes) 13.4 20.0-40.0 [facility] Hospit[id number] 09:52:00 Test Item Value Reference Range Interpretation Comments Segs (test code = Segs) 79.6 45.0-75.0 [facility] HospitalZenshdtANEYDCEIHX3901-60-08 09:52:00 Test Item Value Reference Range Interpretation Comments Eosinophils (test code = 0.3 See_Comment [A utomated message] The Eosinophils) system which ge nerated this result tra nsmitted reference range : <=4.0. The reference r alana was not used to int erpret this result as normal/abnormal . [facility] HospitalEufnszvXJKAHZFDKU4597-64-55 09:52:00 Test Item Value Reference Range Interpretation Comments MPV (test code = MPV) 8.3 7.4-10.4 [facility] HospitalLhiqybvDSVTBNTTVC8684-79-36 09:52:00 Test Item Value Reference Range Interpretation Comments Platelet (test code = Platelet) 222 133-450 [facility] HospitalPpwqgqvDHVJFNZFFW1738-34-63 09:52:00 Test Item Value Reference Range Interpretation Comments RDW (test code = RDW) 14.1 11.5-14.5 [facility] HospitalGfhlxuzOUVVXMWKZN7351-27-39 09:52:00 Test Item Value Reference Range Interpretation Comments MCHC (test code = MCHC) 33.5 32.0-36.0 [facility] HospitalIjwiohqRUPCSQDYPP8150-10-20 09:52:00 Test Item Value Reference Range Interpretation Comments MCH (test code = MCH) 26.4 pg 27.0-31.0 [facility] HospitalYgdhprfBRKGTFOWTM6605-30-60 09:52:00 Test Item Value Reference Range Interpretation Comments Hct (test code = Hct) 36.8 36.0-48.0 [facility] HospitalRyrqlytVTDRIFYVBL2422-49-31 09:52:00 Test Item Value Reference Range Interpretation Comments MCV (test code = MCV) 78.7 80.0-98.0 [facility] HospitalQbxwbbfXPJFCPPKMQ2893-07-57 09:52:00 Test Item Value Reference Range Interpretation Comments RBC (test code = RBC) 4.68 4.20-5.40 [facility] HospitalKnxabqcVDIONWCEZM3193-89-25 09:52:00 Test Item Value Reference Range Interpretation Comments Hgb (test code = Hgb) 12.3 12.0-16.0 [facility] HospitalNeprslyIREFIXVWTB4444-46-94 09:52:00 Test Item Value Reference Range Interpretation Comments WBC (test code = WBC) 13.9 3.7-10.4 [facility]KgbtfxbTGMUOLHDBM2785-52-18 09:52:00 Test Item Value Reference Range Interpretation Comments HIV. (test code = Negative *NA*(03/02/17 HIV.) 3:52 AM) [facility]KdgijcaSJDRAFWITZ4204-88-53 09:52:00 Test Item Value Reference Range Interpretation Comments Treponemal Scr (test Non Reactive code = Treponemal Scr) *NA*(03/02/17 3:52 AM) [facility] CenterIxazmnjYUFGXOHMCX6412-32-14 09:52:00 Test Item Value Reference Range Interpretation Comments Hep Bs Ag (test code Negative *NA*(03/02/17 = Hep Bs Ag) 3:52 AM) [facility] BANK [id number] 09:52:00 Test Item Value Reference Range Interpretation Comments Antibody Scrn (test Negative (03/02/17 code = Antibody Scrn) 3:52 AM) [facility] [id number] 09:52:00 Test Item Value Reference Range Interpretation Comments ABO/Rh (test code = ABO/Rh) O POS [facility] HospitalDsdpkjwKLWXIQJHMR7342-76-54 09:52:00 Test Item Value Reference Range Interpretation Comments Microcyte (test code = 1+ *ABN*(03/02/17 Microcyte) 3:52 AM) [facility] HospitalYwuvyvcTEOULXADHW5302-81-12 09:52:00 Test Item Value Reference Range Interpretation Comments Basophils (test code = 0.4 See_Comment [Aut omated message] The Basophils) system which ge nerated this result tra nsmitted reference range : <=1.0. The reference r alana was not used to int erpret this result as normal/abnormal . [facility] HospitalDtfbhtyQEXYHYHVSZ9492-05-00 09:52:00 Test Item Value Reference Range Interpretation Comments Basophils # (test code 0.1 See_Comment [Aut omated message] The = Basophils #) system which generated this result tra nsmitted reference range : <=0.2. The reference r alana was not used to int erpret this result as normal/abnormal . [facility] HospitalYevbajsNFQMXMANZM1915-22-63 09:52:00 Test Item Value Reference Range Interpretation Comments Monocytes # (test code 0.9 See_Comment [Aut omated message] The = Monocytes #) system which generated this result tra nsmitted reference range : <=0.8. The reference r alana was not used to int erpret this result as normal/abnormal . [facility] HospitalOomklicLALFBDQIBJ7534-19-20 09:52:00 Test Item Value Reference Range Interpretation Comments Lymphocytes # (test code = Lymphocytes 1.9 1.0-5.5 #) [facility] HospitalKkiypkkSRXCHHMTBE1881-20-42 09:52:00 Test Item Value Reference Range Interpretation Comments Segs-Bands # (test code = Segs-Bands #) 11.0 1.5-8.1 [facility] HospitalJwaeawvGOWHRQLTDY1222-45-16 09:52:00 Test Item Value Reference Range Interpretation Comments Monocytes (test code = Monocytes) 6.3 2.0-12.0 [facility] HospitalAztcxvvZOMYUVOINO4841-25-34 09:52:00 Test Item Value Reference Range Interpretation Comments Lymphocytes (test code = Lymphocytes) 13.4 20.0-40.0 [facility] HospitalAmmpugxPONSPEMLZK9419-36-48 09:52:00 Test Item Value Reference Range Interpretation Comments Segs (test code = Segs) 79.6 45.0-75.0 [facility] HospitalFgbbyapMJHHHWFMNZ0043-98-44 09:52:00 Test Item Value Reference Range Interpretation Comments Eosinophils (test code = 0.3 See_Comment [A utomated message] The Eosinophils) system which ge nerated this result tra nsmitted reference range : <=4.0. The reference r alana was not used to int erpret this result as normal/abnormal . [facility] HospitalStlfpnyJSLNWACRCP5089-89-69 09:52:00 Test Item Value Reference Range Interpretation Comments MPV (test code = MPV) 8.3 7.4-10.4 [facility] HospitalZlwlbjmGYXGFWNHCJ2738-43-58 09:52:00 Test Item Value Reference Range Interpretation Comments Platelet (test code = Platelet) 222 133-450 [facility] HospitalQuxxzrgRNHGBYECAQ5728-03-17 09:52:00 Test Item Value Reference Range Interpretation Comments RDW (test code = RDW) 14.1 11.5-14.5 [facility] HospitalTrbrhisVJVAYMOHLR3274-12-60 09:52:00 Test Item Value Reference Range Interpretation Comments MCHC (test code = MCHC) 33.5 32.0-36.0 [facility] HospitalVnlloezMKDFFGJUHQ4880-03-47 09:52:00 Test Item Value Reference Range Interpretation Comments MCH (test code = MCH) 26.4 pg 27.0-31.0 [facility] HospitalAcpaypoPBDOFYYZQA8334-65-74 09:52:00 Test Item Value Reference Range Interpretation Comments Hct (test code = Hct) 36.8 36.0-48.0 [facility] HospitalGmkolyyTIQEMLKVYL6658-09-10 09:52:00 Test Item Value Reference Range Interpretation Comments MCV (test code = MCV) 78.7 80.0-98.0 [facility] HospitalVdhhdgyMLIWTEIWUP7456-40-73 09:52:00 Test Item Value Reference Range Interpretation Comments RBC (test code = RBC) 4.68 4.20-5.40 [facility] HospitalQblqcwbWSSKMKQPJG1210-65-13 09:52:00 Test Item Value Reference Range Interpretation Comments Hgb (test code = Hgb) 12.3 12.0-16.0 [facility] HospitalSmtjqieHZLJSQLJTD9990-99-33 09:52:00 Test Item Value Reference Range Interpretation Comments WBC (test code = WBC) 13.9 3.7-10.4 [facility]BhqfvzlDVNFPWPNTU0960-72-12 09:52:00 Test Item Value Reference Range Interpretation Comments HIV. (test code = Negative *NA*(03/02/17 HIV.) 3:52 AM) [facility] RockGbecsdgLNTWTWCKQH5671-21-87 09:52:00 Test Item Value Reference Range Interpretation Comments Treponemal Scr (test Non Reactive code = Treponemal Scr) *NA*(03/02/17 3:52 AM) [facility] CenterFrrtrrhFRQENSCPLQ0706-54-18 09:52:00 Test Item Value Reference Range Interpretation Comments Hep Bs Ag (test code Negative *NA*(03/02/17 = Hep Bs Ag) 3:52 AM) [facility] [employer] GXFIFRV7715-56-29 09:52:00 Test Item Value Reference Range Interpretation Comments Antibody Scrn (test Negative (03/02/17 code = Antibody Scrn) 3:52 AM) [facility] HROSAKY5907-12-49 09:52:00 Test Item Value Reference Range Interpretation Comments ABO/Rh (test code = ABO/Rh) O POS [facility] CenterMpwiegsXDDZBKQVZB8802-40-59 09:52:00 Test Item Value Reference Range Interpretation Comments Microcyte (test code = 1+ *ABN*(03/02/17 Microcyte) 3:52 AM) [facility] CenterLkrmidwAJHQRYYDLN0541-53-51 09:52:00 Test Item Value Reference Range Interpretation Comments Basophils (test code = 0.4 See_Comment [Aut omated message] The Basophils) system which ge nerated this result tra nsmitted reference range : <=1.0. The reference r alana was not used to int erpret this result as normal/abnormal . [facility] CenterAczexoeMGUNMHMWAL2557-15-76 09:52:00 Test Item Value Reference Range Interpretation Comments Basophils # (test code 0.1 See_Comment [Aut omated message] The = Basophils #) system which generated this result tra nsmitted reference range : <=0.2. The reference r alana was not used to int erpret this result as normal/abnormal . [facility] CenterZndflvxDDXYGSNKQL0481-15-70 09:52:00 Test Item Value Reference Range Interpretation Comments Monocytes # (test code 0.9 See_Comment [Aut omated message] The = Monocytes #) system which generated this result tra nsmitted reference range : <=0.8. The reference r alana was not used to int erpret this result as normal/abnormal . [facility] HospitalVbpkzocMBVNHSRGVV2561-31-65 09:52:00 Test Item Value Reference Range Interpretation Comments Lymphocytes # (test code = Lymphocytes 1.9 1.0-5.5 #) [facility] HospitalOydblviZLAKAKOPET7946-92-15 09:52:00 Test Item Value Reference Range Interpretation Comments Segs-Bands # (test code = Segs-Bands #) 11.0 1.5-8.1 [facility] HospitalPeaxngnVTPGDHAJLS6750-81-03 09:52:00 Test Item Value Reference Range Interpretation Comments Monocytes (test code = Monocytes) 6.3 2.0-12.0 [facility] HospitalDorixnwASTTPELHKC8698-29-60 09:52:00 Test Item Value Reference Range Interpretation Comments Lymphocytes (test code = Lymphocytes) 13.4 20.0-40.0 [facility] HospitalZlmhffeGEAMEIYEUG8740-41-10 09:52:00 Test Item Value Reference Range Interpretation Comments Segs (test code = Segs) 79.6 45.0-75.0 [facility] HospitalLatedwkXEBJEHCALT5746-67-19 09:52:00 Test Item Value Reference Range Interpretation Comments Eosinophils (test code = 0.3 See_Comment [A utomated message] The Eosinophils) system which ge nerated this result tra nsmitted reference range : <=4.0. The reference r alana was not used to int erpret this result as normal/abnormal . [facility] HospitalXnrtadrYUZZKHYGFW5787-07-96 09:52:00 Test Item Value Reference Range Interpretation Comments MPV (test code = MPV) 8.3 7.4-10.4 [facility] HospitalQoiquooBCGICQKAVM7279-58-07 09:52:00 Test Item Value Reference Range Interpretation Comments Platelet (test code = Platelet) 222 133-450 [facility] HospitalDguveipDJAHPWNWPP5498-93-20 09:52:00 Test Item Value Reference Range Interpretation Comments RDW (test code = RDW) 14.1 11.5-14.5 [facility] HospitalNohdwvuJOHSCWNSRQ4739-94-45 09:52:00 Test Item Value Reference Range Interpretation Comments MCHC (test code = MCHC) 33.5 32.0-36.0 [facility] HospitalZnfceylBAROWEUHUJ9783-91-06 09:52:00 Test Item Value Reference Range Interpretation Comments MCH (test code = MCH) 26.4 pg 27.0-31.0 [facility] HospitalTdwfyggZBMQADGNPQ0258-68-84 09:52:00 Test Item Value Reference Range Interpretation Comments Hct (test code = Hct) 36.8 36.0-48.0 [facility] HospitalZlxuficQTGJMDLPEY0826-10-68 09:52:00 Test Item Value Reference Range Interpretation Comments MCV (test code = MCV) 78.7 80.0-98.0 [facility] HospitalTsmvlouNPGEGERYWT2622-33-41 09:52:00 Test Item Value Reference Range Interpretation Comments RBC (test code = RBC) 4.68 4.20-5.40 [facility] HospitalYobfsytVEXJIPYYSI5008-07-28 09:52:00 Test Item Value Reference Range Interpretation Comments Hgb (test code = Hgb) 12.3 12.0-16.0 [facility] HospitalUgpmbtnVPVRDATEAM0464-60-61 09:52:00 Test Item Value Reference Range Interpretation Comments WBC (test code = WBC) 13.9 3.7-10.4 [facility] RockXxixhuzZKLSFIJRTM7784-78-25 09:52:00 Test Item Value Reference Range Interpretation Comments HIV. (test code = Negative *NA*(03/02/17 HIV.) 3:52 AM) [facility] RockNjarviwHQPBFLDQOE5419-32-20 09:52:00 Test Item Value Reference Range Interpretation Comments Treponemal Scr (test Non Reactive code = Treponemal Scr) *NA*(03/02/17 3:52 AM) [facility] RockVdvqcsnMFLDOGMQPP4612-07-48 09:52:00 Test Item Value Reference Range Interpretation Comments Hep Bs Ag (test code Negative *NA*(03/02/17 = Hep Bs Ag) 3:52 AM) [facility] HospitalWbuatggGPYCLSGSQS8506-01-89 09:52:00 Test Item Value Reference Range Interpretation Comments MPV (test code = MPV) 8.3 7.4-10.4 [facility] HospitalBrrtygsKALJNEBRFO4148-45-10 09:52:00 Test Item Value Reference Range Interpretation Comments Platelet (test code = Platelet) 222 133-450 [facility] HospitalXlzvwfzGRUJDHEYWF6887-86-56 09:52:00 Test Item Value Reference Range Interpretation Comments RDW (test code = RDW) 14.1 11.5-14.5 [facility] HospitalBuxekohTMQVTKYKHP2456-37-73 09:52:00 Test Item Value Reference Range Interpretation Comments MCHC (test code = MCHC) 33.5 32.0-36.0 [facility] HospitalEkfmnrhQFRKGVTEIT9778-24-08 09:52:00 Test Item Value Reference Range Interpretation Comments MCH (test code = MCH) 26.4 pg 27.0-31.0 [facility] HospitalUbqaiygLNZLPMIHCK6935-00-28 09:52:00 Test Item Value Reference Range Interpretation Comments Hct (test code = Hct) 36.8 36.0-48.0 [facility] HospitalGcsjncyIRFHXCQJAO1517-54-02 09:52:00 Test Item Value Reference Range Interpretation Comments MCV (test code = MCV) 78.7 80.0-98.0 [facility] HospitalPcqutlpYWROXVAKXD2996-69-41 09:52:00 Test Item Value Reference Range Interpretation Comments RBC (test code = RBC) 4.68 4.20-5.40 [facility] HospitalQipkopgGQMUHCKBKO0605-01-51 09:52:00 Test Item Value Reference Range Interpretation Comments Hgb (test code = Hgb) 12.3 12.0-16.0 [facility]KymxydtLTNCUHEGFP1934-49-02 09:52:00 Test Item Value Reference Range Interpretation Comments WBC (test code = WBC) 13.9 3.7-10.4 [facility] RockIlkisyqWFDZMEMKMX2544-73-62 09:52:00 Test Item Value Reference Range Interpretation Comments HIV. (test code = Negative *NA*(03/02/17 HIV.) 3:52 AM) [facility] CenterRzmoxgxZNUUBIKITH7487-76-72 09:52:00 Test Item Value Reference Range Interpretation Comments Treponemal Scr (test Non Reactive code = Treponemal Scr) *NA*(03/02/17 3:52 AM) [facility] CenterCsbeevhCPFIMTFDZE2023-69-28 09:52:00 Test Item Value Reference Range Interpretation Comments Hep Bs Ag (test code Negative *NA*(03/02/17 = Hep Bs Ag) 3:52 AM) [facility] WCDEIWT5200-21-51 09:52:00 Test Item Value Reference Range Interpretation Comments Antibody Scrn (test Negative (03/02/17 code = Antibody Scrn) 3:52 AM) [facility] QSRVDDY2034-94-57 09:52:00 Test Item Value Reference Range Interpretation Comments ABO/Rh (test code = ABO/Rh) O POS [facility] HospitalYhwlqglJEZHRJUNDU1705-47-45 09:52:00 Test Item Value Reference Range Interpretation Comments Microcyte (test code = 1+ *ABN*(03/02/17 Microcyte) 3:52 AM) [facility] HospitalJokjziwFTEBHDBLJC1765-56-39 09:52:00 Test Item Value Reference Range Interpretation Comments Basophils (test code = 0.4 See_Comment [Aut omated message] The Basophils) system which ge nerated this result tra nsmitted reference range : <=1.0. The reference r alana was not used to int erpret this result as normal/abnormal . [facility] HospitalJnpmgkyFSRLYAFZLA4539-89-88 09:52:00 Test Item Value Reference Range Interpretation Comments Basophils # (test code 0.1 See_Comment [Aut omated message] The = Basophils #) system which generated this result tra nsmitted reference range : <=0.2. The reference r alana was not used to int erpret this result as normal/abnormal . [facility] HospitalOrzonzxRNZHZCYXYT7101-36-16 09:52:00 Test Item Value Reference Range Interpretation Comments Monocytes # (test code 0.9 See_Comment [Aut omated message] The = Monocytes #) system which generated this result tra nsmitted reference range : <=0.8. The reference r alana was not used to int erpret this result as normal/abnormal . [facility] HospitalCypjjbeIUJTAIFHJK0829-76-25 09:52:00 Test Item Value Reference Range Interpretation Comments Lymphocytes # (test code = Lymphocytes 1.9 1.0-5.5 #) [facility] HospitalNakhoesPZOKHNZQCQ8604-68-55 09:52:00 Test Item Value Reference Range Interpretation Comments Segs-Bands # (test code = Segs-Bands #) 11.0 1.5-8.1 [facility] HospitalBkbmhuiJJSWNEGAFF7893-56-50 09:52:00 Test Item Value Reference Range Interpretation Comments Monocytes (test code = Monocytes) 6.3 2.0-12.0 [facility] HospitalElnjidxRIYFBRVXEV6478-83-43 09:52:00 Test Item Value Reference Range Interpretation Comments Lymphocytes (test code = Lymphocytes) 13.4 20.0-40.0 [facility] HospitalTnufjcfKDMATHUFUR8745-97-42 09:52:00 Test Item Value Reference Range Interpretation Comments Segs (test code = Segs) 79.6 45.0-75.0 [facility] HospitalXbfjjpgBXVKFSLINO9104-94-46 09:52:00 Test Item Value Reference Range Interpretation Comments Eosinophils (test code = 0.3 See_Comment [A utomated message] The Eosinophils) system which ge nerated this result tra nsmitted reference range : <=4.0. The reference r alana was not used to int erpret this result as normal/abnormal . [facility] HospitalTzdnmqvEVIKKJHZWK9212-50-30 09:52:00 Test Item Value Reference Range Interpretation Comments MPV (test code = MPV) 8.3 7.4-10.4 [id number] 09:52:00 Test Item Value Reference Range Interpretation Comments Platelet (test code = Platelet) 222 133-450 [facility]TfyivmcIWNANRXOCV5771-19-17 09:52:00 Test Item Value Reference Range Interpretation Comments RDW (test code = RDW) 14.1 11.5-14.5 [facility] HospitalYverxkeSGYGRANGAM7212-30-72 09:52:00 Test Item Value Reference Range Interpretation Comments MCHC (test code = MCHC) 33.5 32.0-36.0 [facility] H[id number] 09:52:00 Test Item Value Reference Range Interpretation Comments MCH (test code = MCH) 26.4 pg 27.0-31.0 [facility] HospitalWnlheqtSWQLEFEKLB3983-01-65 09:52:00 Test Item Value Reference Range Interpretation Comments Hct (test code = Hct) 36.8 36.0-48.0 [facility] HospitalJodukouIFWHSFRKPL0925-25-21 09:52:00 Test Item Value Reference Range Interpretation Comments MCV (test code = MCV) 78.7 80.0-98.0 [facility] HospitalClhjahhAUDLJQRDDY4001-76-41 09:52:00 Test Item Value Reference Range Interpretation Comments RBC (test code = RBC) 4.68 4.20-5.40 [facility] Hospit[id number] 09:52:00 Test Item Value Reference Range Interpretation Comments Hgb (test code = Hgb) 12.3 12.0-16.0 [facility] H[id number] 09:52:00 Test Item Value Reference Range Interpretation Comments WBC (test code = WBC) 13.9 3.7-10.4 [facility]azvYVCFMAMYAT8189-04-80 09:52:00 Test Item Value Reference Range Interpretation Comments HIV. (test code = Negative *NA*(03/02/17 HIV.) 3:52 AM) [facility]53 09:52:00 Test Item Value Reference Range Interpretation Comments Treponemal Scr (test Non Reactive code = Treponemal Scr) *NA*(03/02/17 3:52 AM) [facility]zad[facility]KTWYTILYDJ2827-96-85 09:52:00 Test Item Value Reference Range Interpretation Comments Hep Bs Ag (test code Negative *NA*(03/02/17 = Hep Bs Ag) 3:52 AM) [facility] [id number] 09:52:00 Test Item Value Reference Range Interpretation Comments Antibody Scrn (test Negative (03/02/17 code = Antibody Scrn) 3:52 AM) [facility] [id number] 09:52:00 Test Item Value Reference Range Interpretation Comments ABO/Rh (test code = ABO/Rh) O POS [facility] CenterLzvdxyvCQFPYPLBTR5639-66-15 09:52:00 Test Item Value Reference Range Interpretation Comments Microcyte (test code = 1+ *ABN*(03/02/17 Microcyte) 3:52 AM) [facility] CenterZvxyhweTYQLLXQPRP2041-61-25 09:52:00 Test Item Value Reference Range Interpretation Comments Basophils (test code = 0.4 See_Comment [Aut omated message] The Basophils) system which ge nerated this result tra nsmitted reference range : <=1.0. The reference r alana was not used to int erpret this result as normal/abnormal . [facility] CenterMpltivwNHEUEAAQBO1084-22-38 09:52:00 Test Item Value Reference Range Interpretation Comments Basophils # (test code 0.1 See_Comment [Aut omated message] The = Basophils #) system which generated this result tra nsmitted reference range : <=0.2. The reference r alana was not used to int erpret this result as normal/abnormal . [facility] CenterTecxywwMUHFCMOVNA2642-41-44 09:52:00 Test Item Value Reference Range Interpretation Comments Monocytes # (test code 0.9 See_Comment [Aut omated message] The = Monocytes #) system which generated this result tra nsmitted reference range : <=0.8. The reference r alana was not used to int erpret this result as normal/abnormal . [facility] HospitalOhxeoyhHMBRUFWYIK1420-29-71 09:52:00 Test Item Value Reference Range Interpretation Comments Lymphocytes # (test code = Lymphocytes 1.9 1.0-5.5 #) [facility] H[id number] 09:52:00 Test Item Value Reference Range Interpretation Comments Segs-Bands # (test code = Segs-Bands #) 11.0 1.5-8.1 [facility] H[id number] 09:52:00 Test Item Value Reference Range Interpretation Comments Monocytes (test code = Monocytes) 6.3 2.0-12.0 [facility] H[id number] 09:52:00 Test Item Value Reference Range Interpretation Comments Lymphocytes (test code = Lymphocytes) 13.4 20.0-40.0 [facility] HospitalQezxfzuEVCPIUQZJO4281-12-13 09:52:00 Test Item Value Reference Range Interpretation Comments Segs (test code = Segs) 79.6 45.0-75.0 [facility] H[id number] 09:52:00 Test Item Value Reference Range Interpretation Comments Eosinophils (test code = 0.3 See_Comment [A utomated message] The Eosinophils) system which ge nerated this result tra nsmitted reference range : <=4.0. The reference r alana was not used to int erpret this result as normal/abnormal . [facility]
[2022-09-01] MEDS ORDERED: ONDANSETRON 4 MG/2 ML VIAL ONE (14:51)
[2022-09-01] MEDS ORDERED: FAMOTIDINE 20 MG/2 ML VIAL IV ONE (14:51)
[2022-09-01] MEDS ORDERED: NA CHLORIDE 0.9% 1,000 ML ONE (14:51)
[2022-09-01 15:04] LABS: Absolute Lymphocytes (CBC) 0.6 K/uL (0.7-4.9); Hematocrit 38.8 % (36.0-45.0); Lymphocytes % 4.4 % (15.3-44.8); MCV 79.9 fL (80-100); MPV 7.9 fL (7.6-11.3); RBC Red Blood Cell Count 4.86 M/uL (3.86-4.86)
[2022-09-01 15:20] LABS: Albumin 3.7 g/dL (3.4-5.0); Bilirubin Total 0.5 mg/dL (0.2-1.0); Potassium 3.3 mEq/L (3.5-5.1)
[2022-09-01 16:09] LABS: Specific Gravity 1.028 (1.005-1.030)
[2022-09-01 16:13] LABS: Specific Gravity 1.028 (1.005-1.030); Urine Bacteria <20 /HPF (<20); Urine Bilirubin NEGATIVE (Negative); Urine Blood Trace (Negative); Urine Clarity Clear (Clear); Urine Color Light-Yellow (Yellow); Urine Glucose NEGATIVE (Negative); Urine Mucus 1+ /HPF (None Seen); Urine Protein TRACE (Negative); Urine Urobilinogen Normal (Normal); Urine pH 6.5 (5.0-7.0)
--- NOTE | 2022-09-01 17:10 | RAD REPORT ---
EXAM DESCRIPTION: CT - Abdomen Pelvis W Contrast - 09/01/2022 4:53 pm CLINICAL HISTORY: ABD PAIN COMPARISON: No comparisons TECHNIQUE: Thin cut axial CT imaging of the abdomen and pelvis was performed following intravenous a dministration of 100 mL Isovue 300. Multiplanar reformats were generated and reviewed. All CT scans are performed using dose optimization technique as appropriate and may include automated exposure control or mA/KV adjustment according to patient size. FINDINGS: No suspicious findings in the lung bases. The liver, spleen, and pancreas show no suspicious findings. Gallbladder and biliary tree are also wi thout suspicious finding. Symmetric renal function is seen with no hydronephrosis or suspicious renal mass. Fluid filling of nondistended bowel loops, including the small bowel and the proximal colon to the le jon of the distal transverse colon. The appendix is not discretely visualized, without evidence of in flammatory changes in its location. No free air, free fluid or inflammatory stranding. No hernia, mas s or bulky lymphadenopathy. The urinary bladder is without significant finding. No suspicious bony findings. IMPRESSION: Fluid filling of the nondistended small and large bowel as above, findings which may rel ate to infectious or inflammatory enterocolitis. No other acute intra-abdominal process.
--- NOTE | 2022-09-01 17:57 | EDPHYS ---
Physician Documentation [facility] Name: Yeison Long Age: 32 yrs Sex: Female : 1990 Arrival Date: 09/01/2022 Time: 14:03 Bed 15 Private MD: Marv Galvin ED Physician Matthew Godfrey HPI: 09/01 14:11 This 32 yrs old Female presents to ER via Ambulatory with complaints of jh7 Abdominal Pain, Vomiting. 14:11 The patient presents with abdominal pain in the epigastric area. Onset: The jh7 symptoms/episode began/occurred last night. Associated signs and symptoms: Pertinent positives: nausea and vomiting, Pertinent negatives: diarrhea, dysuria, fever. 32-year-old female presents with epigastric pain and nausea and vomiting since last night. Reports that she is starting to feel better now, but that she was unable to hold down anything this morning. Reports a history of a hiatal hernia. Also reports that her son has similar symptoms. Patient of Dr. Maya.. Historical: - Allergies: 14:11 No Known Allergies; iw - Home Meds: 14:11 Qulipta oral [Active]; control [Active]; iw - PMHx: 14:11 Migraine; hiatal hernia; iw - PSHx: 14:11 None; iw - Immunization history:: Adult Immunizations. - Social history:: Smoking status: Patient denies any tobacco usage or history of. ROS: 14:11 Constitutional: Negative for fever, chills, and weight loss, Eyes: Negative for injury, jh7 pain, redness, and discharge, Neck: Negative for injury, pain, and swelling, Cardiovascular: Negative for chest pain, palpitations, and edema, Respiratory: Negative for shortness of breath, cough, wheezing, and pleuritic chest pain, Back: Negative for injury and pain, MS/Extremity: Negative for injury and deformity, Skin: Negative for injury, rash, and discoloration, Neuro: Negative for headache, weakness, numbness, tingling, and seizure. 14:11 Abdomen/GI: Positive for abdominal pain, nausea and vomiting, Negative for diarrhea, constipation, black/tarry stool. 14:11 All other systems are negative. Exam: 14:11 Constitutional: This is a well developed, well nourished patient who is awake, alert, jh7 and in no acute distress. Head/Face: Normocephalic, atraumatic. Eyes: Pupils equal round and reactive to light, extra-ocular motions intact. Lids and lashes normal. Conjunctiva and sclera are non-icteric and not injected. Cornea within normal limits. Periorbital areas with no swelling, redness, or edema. Neck: Trachea midline, no thyromegaly or masses palpated, and no cervical lymphadenopathy. Supple, full range of motion without nuchal rigidity, or vertebral point tenderness. No Meningismus. Cardiovascular: Regular rate and rhythm with a normal S1 and S2. No gallops, murmurs, or rubs. Normal PMI, no JVD. No pulse deficits. Respiratory: Lungs have equal breath sounds bilaterally, clear to auscultation and percussion. No rales, rhonchi or wheezes noted. No increased work of breathing, no retractions or nasal flaring. Back: No spinal tenderness. No costovertebral tenderness. Full range of motion. Skin: Warm, dry with normal turgor. Normal color with no rashes, no lesions, and no evidence of cellulitis. MS/ Extremity: Pulses equal, no cyanosis. Neurovascular intact. Full, normal range of motion. Neuro: Awake and alert, GCS 15, oriented to person, place, time, and situation. Normal gait. 14:11 Abdomen/GI: Inspection: abdomen appears normal, Bowel sounds: normal, Palpation: soft, mild abdominal tenderness, in the epigastric area. Vital Signs: 14:10 BP 110 / 91; Pulse 118; Resp 18; Temp 98.3; Pulse Ox 99% on R/A; Weight 65.77 kg; iw Height 5 ft. 2 in. ; Pain 5/10; 15:58 BP 113 / 86; Pulse 106; Resp 18; Pulse Ox 99% on R/A; Pain 8/10; ld1 17:23 BP 117 / 84; Pulse 101; Resp 18; Pulse Ox 99% on R/A; ld1 14:10 Body Mass Index 26.52 (65.77 kg, 157.48 cm) iw 14:10 Pain Scale: Adult iw 15:58 Pain Scale: Adult ld1 MDM: 14:13 Patient medically screened. [facility] 17:45 Differential diagnosis: bowel obstruction, diverticulitis, gastritis, pancreatitis, jh7 Peptic Ulcer Disease, colitis. Data reviewed: vital signs, nurses notes, lab test result(s), radiologic studies, CT scan. Consideration of Admission/Observation Escalation of care including admission/observation considered. I considered the following discharge prescriptions or medication management in the emergency department Medications were administered in the Emergency Department. See MAR. Historians other than the Patient: Parent: mom. Counseling: I had a detailed discussion with the patient and/or guardian regarding: the historical points, exam findings, and any diagnostic results supporting the discharge/admit diagnosis, to return to the emergency department if symptoms worsen or persist or if there are any questions or concerns that arise at home. Response to treatment: the patient's symptoms have markedly improved after treatment. ED course: The patient remained hemodynamically stable throughout the ER visit. Informed her of all lab and imaging findings. She passed the p.o. challenge by being able to drink water and eating peanut butter crackers. Informed her that we would prescribe her antibiotics and medications to help with the nausea and pain. If her current symptoms worsen, or she develops any new concerning symptoms, she may return to the ER for further eval. The patient understood the plan of care.. 09/01 14:14 Order name: CBC with Diff; Complete Time: 15:30 [facility] 09/01 14:14 Order name: CMP; Complete Time: 15:30 [facility] 09/01 14:14 Order name: Lipase; Complete Time: 15:30 [facility] 09/01 14:14 Order name: Test, Urine; Complete Time: 16:19 [facility] 09/01 14:14 Order name: Urinalysis w/ reflexes; Complete Time: 16:19 [facility] 09/01 15:59 Order name: Test, Serum; Complete Time: 17:25 [facility] 09/01 14:14 Order name: CT Abd/Pelvis - IV Contrast Only; Complete Time: 17:16 [facility] 09/01 14:14 Order name: IV Saline Lock; Complete Time: 14:55 [facility] 09/01 14:14 Order name: Labs collected and sent; Complete Time: 14:55 [facility] 09/01 17:17 Order name: PO challenge; Complete Time: 17:23 [facility] Administered Medications: 14:29 Not Given (Physician Discretion): morphine IVP or IV 4 mg IVP once over 4 mins [facility] 14:55 Drug: NS 0.9% IV 1000 ml Route: IV; Rate: 1 bolus; Site: right antecubital; ld1 14:55 Drug: Ondansetron IVP 4 mg Route: IVP; Site: right antecubital; ld1 14:55 Drug: Famotidine IVP 20 mg Route: IVP; Site: right antecubital; ld1 Disposition Summary: 09/01/22 17:56 Discharge Ordered Location: Home [facility] Problem: new [facility] Symptoms: have improved [facility] Condition: Stable [facility] Diagnosis - Enterocolitis [facility] Followup: [facility] - With: Marv Galvin MD - When: 2 - 3 days - Reason: Recheck today's complaints Discharge Instructions: - Discharge Summary Sheet [facility] - Colitis [facility] Forms: - Work release form ld1 - Family Work Release ld1 - Medication Reconciliation Form 7 - Thank You Letter [facility] - Antibiotic Education [facility] Prescriptions: - ondansetron 4 mg Oral Tablet,disintegrating - take 1 tablet by ORAL route every 4-6 hours As needed as needed for nausea and 7 vomiting; 20 tablet; Refills: 0, Product Selection Permitted - Cipro 500 mg Oral Tablet - take 1 tablet by ORAL route every 12 hours for 7 days; 14 tablet; Refills: 0, [facility] Product Selection Permitted - Flagyl 500 mg Oral Tablet - take 1 tablet by ORAL route every 12 hours for 7 days; 14 tablet; Refills: 0, [facility] Product Selection Permitted - Levsin 0.125 mg Oral Tablet - take 1 tablet by ORAL route every 8 hours; 30 tablet; Refills: 0, Product [facility] Selection Permitted Signatures: Dispatcher [employer] Radha Rios, GRECIA PAIGE Maddy Montejo RN RN ld1 Arabella Hamilton, TINA EDUCATIONAL ASSISTANT [facility]
--- NOTE | 2022-09-01 17:57 | ER ---
Nurse's Notes [facility] Name: Yeison Long Age: 32 yrs Sex: Female : 1990 Arrival Date: 09/01/2022 Time: 14:03 Bed 15 Private MD: Marv Galvin Diagnosis: Enterocolitis Presentation: 09/01 14:10 Chief complaint: Patient states: can't keep anything down and having stomach cramps iw since this morning, has a known hiatal hernia. Coronavirus screen: At this time, the client does not indicate any symptoms associated with coronavirus-19. Ebola Screen: Patient negative for fever greater than or equal to 101.5 degrees Fahrenheit, and additional compatible Ebola Virus Disease symptoms Patient denies exposure to infectious person. Patient denies travel to an Ebola-affected area in the 21 days before illness onset. No symptoms or risks identified at this time. Initial Sepsis Screen: Does the patient meet any 2 criteria? No. Patient's initial sepsis screen is negative. Does the patient have a suspected source of infection? No. Patient's initial sepsis screen is negative. Risk Assessment: Do you want to hurt yourself or someone else? Patient reports no desire to harm self or others. Onset of symptoms was September 01, 2022. 14:10 Method Of Arrival: Ambulatory iw 14:10 Acuity: GABRIELA 3 iw Historical: - Allergies: 14:11 No Known Allergies; iw - Home Meds: 14:11 Qulipta oral [Active]; control [Active]; iw - PMHx: 14:11 Migraine; hiatal hernia; iw - PSHx: 14:11 None; iw - Immunization history:: Adult Immunizations. - Social history:: Smoking status: Patient denies any tobacco usage or history of. Screenin:58 [facility] ED Fall Risk Assessment (Adult) History of falling in the last 3 months, ld1 including since admission No falls in past 3 months (0 pts). Abuse screen: Denies threats or abuse. Denies injuries from another. Nutritional screening: No deficits noted. Tuberculosis screening: No symptoms or risk factors identified. Assessment: 15:58 General: Appears in no apparent distress. comfortable, Behavior is calm, cooperative, ld1 appropriate for age. Pain: Complains of pain in abdomen Pain does not radiate. Pain currently is 8 out of 10 on a pain scale. Quality of pain is described as throbbing. Neuro: Level of Consciousness is awake, alert, obeys commands, Oriented to person, place, time, situation. Cardiovascular: Capillary refill < 3 seconds Patient's skin is warm and dry. Respiratory: Airway is patent Respiratory effort is even, unlabored. GI: Abdomen is flat, non-distended, Bowel sounds present X 4 quads. Abd is soft Abdomen is tender to palpation. : No signs and/or symptoms were reported regarding the genitourinary system. EENT: No signs and/or symptoms were reported regarding the EENT system. Derm: No signs and/or symptoms reported regarding the dermatologic system. Musculoskeletal: No signs and/or symptoms reported regarding the musculoskeletal system. Vital Signs: 14:10 BP 110 / 91; Pulse 118; Resp 18; Temp 98.3; Pulse Ox 99% on R/A; Weight 65.77 kg; iw Height 5 ft. 2 in. ; Pain 5/10; 15:58 BP 113 / 86; Pulse 106; Resp 18; Pulse Ox 99% on R/A; Pain 8/10; ld1 17:23 BP 117 / 84; Pulse 101; Resp 18; Pulse Ox 99% on R/A; ld1 14:10 Body Mass Index 26.52 (65.77 kg, 157.48 cm) iw 14:10 Pain Scale: Adult iw 15:58 Pain Scale: Adult ld1 ED Course: 14:04 Patient arrived in ED. rg4 14:04 Marv Galvin MD is Private Physician. rg4 14:11 Triage completed. iw 14:12 Arm band placed on. iw 14:13 Arabella Hamilton FNP is PHCP. jh7 14:13 Matthew Godfrey MD is Attending Physician. jh7 14:30 Maddy Montejo, GRECIA is Primary Nurse. ld1 14:55 Inserted saline lock: 20 gauge in right antecubital area, using aseptic technique. zm Blood collected. 15:36 Radiology exam delayed due to test not completed at this time. sj 15:57 Urinalysis w/ reflexes Sent. ld1 15:58 Patient has correct armband on for positive identification. Placed in gown. Bed in low ld1 position. Call light in reach. Side rails up X2. Pulse ox on. NIBP on. Door closed. Noise minimized. Warm blanket given. 15:58 No provider procedures requiring assistance completed. ld1 16:55 CT Abd/Pelvis - IV Contrast Only In Process Unspecified. EDMS 17:56 Marv Galvin MD is Referral Physician. [facility] Administered Medications: 14:29 Not Given (Physician Discretion): morphine IVP or IV 4 mg IVP once over 4 mins [facility] 14:55 Drug: NS 0.9% IV 1000 ml Route: IV; Rate: 1 bolus; Site: right antecubital; ld1 14:55 Drug: Ondansetron IVP 4 mg Route: IVP; Site: right antecubital; ld1 14:55 Drug: Famotidine IVP 20 mg Route: IVP; Site: right antecubital; ld1 Medication: 15:58 VIS not applicable for this client. ld1 Outcome: 17:56 Discharge ordered by . [facility] 18:20 Patient left the ED. ld1 Signatures: Dispatcher [employer] Miriam Cool Irene, RN Sylvie Rae rg4 Maddy Montejo RN RN ld1 Cristy Pappas Jennifer, BENCH ASSEMBLER BENCH ASSEMBLER [facility]
[2022-09-01 18:38] VITALS: TEMP 98.3; O2SAT 99
[2022-09-01 18:50] VITALS: BP 117/84
== END 2022-09-01 18:20 | disposition home or self-care (01) ==
LOC: ER 14:03
DX: K52.9 Noninfective gastroenteritis and colitis, unspecified (principal); R11.2 Nausea with vomiting, unspecified
CPT/HCPCS: 85025; 81001; 36415; 84703; 81025; 83690; 80053; 74177; Q9967; J2405; J7030